=== PATIENT | female | born 1980 | race Caucasian/White ===

== ENCOUNTER 2018-03-12 18:50 | Emergency (ER) | payer MEDICAID, SELFPAY ==
[2018-03-12] VITALS (8 sets, daily range): BP systolic 103–131; BP diastolic 59–99; PULSE 89–106; RESP 18–30; TEMP 36.5–36.6; O2SAT 92–98; BMI 36.6
--- NOTE | 2018-03-12 20:06 | EKG12_ITS ---
Test Reason : SOB Blood Pressure : / mmHG Vent. Rate : 085 BPM Atrial Rate : 085 BPM P-R Int : 140 ms QRS Dur : 090 ms QT Int : 384 ms P-R-T Axes : 040 066 043 degrees QTc Int : 456 ms Normal sinus rhythm Normal ECG Confirmed by DAVIDA DREW, LASHAY ([id number]), book or script editor IVETH RUIZ ([id number] on 03/16/2018 1:33:47 PM Referred By: ROBERTO/SOCRATES Confirmed By:LASHAY HIGUERA MD
--- NOTE | 2018-03-12 20:09 | RAD_ITS ---
STUDY: X-RAY CHEST REASON FOR EXAM: Female, 37 years old. Shortness of breath with headache TECHNIQUE: Single AP portable view of the chest. COMPARISON: Prior study of 11/13/2013 FINDINGS: equipment service lead leads are present. The lungs are clear and expanded. There is no demonstrated pleural abnormality. Normal size heart. Normal mediastinum and ramses. Normal visualized pulmonary arteries. Normal visualized aortic arch and descending thoracic aorta. Normal visualized thoracic spine. Normal visualized ribs, clavicles, and shoulders. There is no demonstrated abnormality of the visualized soft tissue structures of the upper abdomen. RAD/Chest 1 View (Portable) IMPRESSION: Normal x-ray examination of the chest. Electronically Signed: Bijan Navarrete MD at 21:50 EST , Service support ,
[2018-03-12] MEDS: DiphenhydrAMINE 50 MG/ML Syringe 25 MG IV (20:33)
[2018-03-12] MEDS: Metoclopramide 10 MG/2 ML Vial 5 MG IV (20:34)
[2018-03-12 20:35] LABS: Absolute Lymphocyte Count 3.29 X10^3/ul (0.83-4.51); Absolute Neutrophil Count 4.8 X10^3/uL (2.0-7.7); Basophil# 0.03 X10^3/uL; Basophil% 0.3 % (0-1); Eosinophil# 0.09 X10^3/uL; Hematocrit 41.9 % (37-47); Hemoglobin 13.9 g/dl (12.0-15.0); Lymphocyte # 3.29 X10^3/ul (4.0); Lymphocyte % 37.2 % (19-41); Mean Corp Hgb Conc 33.2 g/gl (32-36); Mean Corpuscular Hgb 31.7 pg (27.0-32.0); Mean Corpuscular Volume 95.4 fL (81-99); Mean Platelet Vol. 11.2 fl (6.2-12.0); Monocyte# 0.64 X10^3/uL; Monocyte% 7.2 % (0-10); Neutrophil # 4.78 X10^3/uL (2.7-7.7); Neutrophil % 54.2 % (47-70); Platelet Count 217 K/mm3 (150-450); RBC Distribution Width CV 13.1 % (11.6-14.6); RBC Distribution Width SD 45.3 fl (35.1-43.9); Red Blood Count 4.39 M/mm3 (4.2-5.4); White Blood Count 8.8 K/mm3 (4.4-11.0)
[2018-03-12 20:36] LABS: POSITIVE COUNT NO; POSITIVE DIFFERENTIAL NO; POSITIVE MORPHOLOGY NO
[2018-03-12] MEDS: Albuterol 2.5 MG/3 ML VIAL.NEB. INHALATION ×3 (20:36→20:50)
[2018-03-12] MEDS: Ipratropium/Albuterol Sulfate 3 ML AMPUL.NEB INHALATION (20:36)
--- NOTE | 2018-03-12 20:44 | ED.VISSUMM ---
- ER Visit Summary Date of Service: 03/12/18 Chief Complaint: Cough, shortness of breath History of Present Illness: The patient is a 37 F presenting with cough, shortness of breath. This has been ongoing for the past week. She has a nonproductive cough. She has had nausea with no vomiting. She denies fever. Denies chest pain. She started developing a migraine earlier today. This was gradual onset similar to her previous migraines. She has light sensitivity. She denies other complaints. Physical Examination: Vitals are stable. Patient is afebrile. Alert no acute distress. HEENT exam is unremarkable. Neck is supple. No meningismus Lungs are wheezing bilaterally. Heart is regular rate and rhythm. Abdomen is soft nontender nondistended. Extremities are unremarkable. Skin is warm and dry. No focal neurologic deficit. Remainder of exam is unremarkable. Emergency Department Course and Treatment: She was given albuterol, Atrovent aerosols. She was given Reglan and Benadryl IV. CBC, chemistries unremarkable. HCG negative. On reevaluation, her lung sounds are improved, her headache is improved. Chest x-ray shows no acute process. She is given a prescription for prednisone and Tessalon Perles. She is advised to follow-up with her primary care physician. Advised return to ED if worsening complaints. Disposition: Discharge home Impression: Asthma exacerbation, URI, migraine This note was generated with [employer] dictation software. It may contain incorrect words, spelling, and punctuation that were not noted in review of the chart prior to signing ED Disposition - Plan for ED Patient: Instructions: ED Bronchitis Asthmatic Prescriptions: Benzonatate [Tessalon Perle] 200 mg PO TID PRN PRN #20 capsule PRN Reason: Cough Prednisone [Deltasone] 40 mg PO DAILY #10 tablet Referrals: Miles Baker MD [Primary Care Provider] -
[2018-03-12 20:51] LABS: Anion Gap 8 (5-15); BUN 11 mg/dL (7-18); BUN/Creat Ratio 12.4 RATIO (10-20); Calcium,Total 8.7 mg/dL (8.5-10.1); Chloride 104 mmol/L (98-107); Creatinine, Serum 0.88 mg/dL (0.55-1.02); EST Glomerular Filtration Rate 77 mL/min (>60); Est Glom Filt Rate - Afr Amer 93 mL/min (>60); Estimated Creatinine Clearance 79.53 ml/min; Glucose 79 mg/dL (74-106); Potassium 4.2 mmol/L (3.5-5.1); Sodium Level 138 mmol/L (136-145)
[2018-03-12 21:15] LABS: Pregnancy, Serum, hCG Quali. NEGATIVE Negative (0-9 Nonpreg)
--- NOTE | 2018-03-12 21:30 | ED.RN ---
DR. CROWELL TOLD THIS NURSE I COULD CANCEL THE SEPSIS SCREEN.
[2018-03-12] MEDS: Ketorolac 30 MG/ML Syringe IV (21:45)
--- NOTE | 2018-03-12 22:03 | ED.DEP ---
ED Disposition - Plan for ED Patient: Instructions: ED Bronchitis Asthmatic Prescriptions: Benzonatate [Tessalon Perle] 200 mg PO TID PRN PRN #20 capsule PRN Reason: Cough Prednisone [Deltasone] 40 mg PO DAILY #10 tablet Referrals: Miles Baker MD [Primary Care Provider] -
[2018-03-12] MEDS: predniSONE 20 MG Tablet 60 MG PO (22:14)
== END 2018-03-12 22:16 | disposition home or self-care (01) ==
PROVIDERS: Emergency Provider Emergency Medicine; Family Provider Family Medicine; PCP Family Medicine
DX: J45.901 Unspecified asthma with (acute) exacerbation (principal); J06.9 Acute upper respiratory infection, unspecified; G43.909 Migraine, unspecified, not intractable, without status migrainosus; Z72.0 Tobacco use
CPT/HCPCS: 71045; 80048; 84703; 85025; 93005; 94640; 96374; 96375; 99285; J7030; A4216

== ENCOUNTER 2018-03-20 19:14 | Emergency (ER) | payer MEDICAID, SELFPAY ==
[2018-03-12 18:50] VITALS: BMI 36.6
[2018-03-20 19:14] VITALS: BP 145/81; PULSE 107; RESP 18; TEMP 36.9; O2SAT 97; BMI 36.6
--- NOTE | 2018-03-20 20:10 | ED.VISSUMM ---
- ER Visit Summary Date of Service: 03/20/18 Chief Complaint: Neck pain History of Present Illness: The patient is a 37 F with left-sided neck pain for 2 days. She thinks this came on after coughing. Patient has occasional sharp pain. Reports decreased sleep. Physical Examination: Afebrile and vital signs unremarkable. Left paraspinal cervical tenderness to palpation near the occiput. Mastoid nontender. Ears unremarkable. Parotid unremarkable. Lymph nodes unremarkable. Skin appears normal. Cranial nerves grossly intact. No other pertinent findings. Test Results: None indicated Emergency Department Course and Treatment: I believe this is myofascial pain. Patient was treated with Motrin and Flexeril. She received a dose of Ultram here. Will prescribe a course of the same. Follow-up with primary care for recheck. Treatment Plan: As above Disposition: Discharge Impression: 1. Cervical strain This note was generated with [employer] dictation software. It may contain incorrect words, spelling, and punctuation that were not noted in review of the chart prior to signing ED Disposition - Plan for ED Patient: Referrals: Miles Baker MD [Primary Care Provider] -
--- NOTE | 2018-03-20 20:11 | ED.DEP ---
ED Disposition - Plan for ED Patient: Instructions: Neck Problems: Relieving Your Symptoms Prescriptions: Oxycodone HCl/Acetaminophen [Percocet 5/325] 1 tab PO Q6H PRN PRN 3 Days #12 tab PRN Reason: Pain Ibuprofen [Motrin] 800 mg PO TID PRN PRN #20 tab PRN Reason: Pain Cyclobenzaprine [Flexeril] 10 mg PO TID PRN #20 tab PRN Reason: Muscle Spasm Referrals: Miles Baker MD [Primary Care Provider] -
[2018-03-20] MEDS: Ibuprofen 600 MG Tablet PO (20:15)
[2018-03-20] MEDS: traMADol 50 MG Tablet PO (20:15)
== END 2018-03-20 20:18 | disposition home or self-care (01) ==
PROVIDERS: Emergency Provider Emergency Medicine; Family Provider Family Medicine; PCP Family Medicine
DX: S16.1XXA Strain of muscle, fascia and tendon at neck level, initial encounter (principal); X58.XXXA Exposure to other specified factors, initial encounter; Y93.9 Activity, unspecified; Y92.89 Other specified places as the place of occurrence of the external cause; Y99.9 Unspecified external cause status; Z72.0 Tobacco use
CPT/HCPCS: 99283

== ENCOUNTER 2018-05-11 17:39 | Emergency (ER) | payer MEDICAID, SELFPAY ==
[2018-05-11 17:41] VITALS: BP 148/103; PULSE 120; RESP 20; TEMP 36.9; O2SAT 95; BMI 36.6
--- NOTE | 2018-05-11 18:01 | EKG12_ITS ---
Test Reason : GEN ILLNESS Blood Pressure : / mmHG Vent. Rate : 108 BPM Atrial Rate : 108 BPM P-R Int : 128 ms QRS Dur : 090 ms QT Int : 340 ms P-R-T Axes : 024 056 027 degrees QTc Int : 455 ms Sinus tachycardia Otherwise normal ECG Confirmed by DAVIDA DREW, LASHAY ([id number]), science editor CATHI HINOJOSA ([id number]) on 05/13/2018 10:58:14 AM Referred By: JESS Confirmed By:LASHAY HIGUERA MD
[2018-05-11] MEDS: Ipratropium/Albuterol Sulfate 3 ML AMPUL.NEB INHALATION (18:09)
[2018-05-11 18:10] VITALS: PULSE 111; RESP 26
[2018-05-11 18:12] VITALS: BP 148/105; PULSE 120; RESP 18; TEMP 36.9; O2SAT 90
--- NOTE | 2018-05-11 18:20 | RAD_ITS ---
STUDY: X-RAY CHEST REASON FOR EXAM: Female, 37 years old. Cough, rib pain. TECHNIQUE: PA and lateral views of the chest. COMPARISON: Portable AP upright chest x-ray March 12, 2018. FINDINGS: The lungs are clear and expanded. There is no demonstrated pleural abnormality. Normal size heart. Normal mediastinum and ramses. Normal visualized pulmonary arteries. Normal visualized aortic arch and descending thoracic aorta. Normal visualized thoracic spine. Normal visualized ribs, clavicles, and shoulders. There is no demonstrated abnormality of the visualized soft tissue structures of the upper abdomen. RAD/Chest PA and Lateral IMPRESSION: Normal x-ray examination of the chest. Electronically Signed: Ilan Smith MD at 18:37 EDT , Service support ,
[2018-05-11] MEDS: predniSONE 20 MG Tablet 60 MG PO (18:29)
[2018-05-11] MEDS: Acetaminophen 500 MG Tablet 1000 MG PO (18:45)
[2018-05-11 19:03] VITALS: BP 150/86; PULSE 103; RESP 20; TEMP 37.4; O2SAT 96
[2018-05-11] MEDS: Ketorolac 60 MG/2 ML Vial IM (19:32)
[2018-05-11 19:33] LABS: Bacteria 0 SEEN /hpf (None Seen); Color, Urine Yellow (Yellow); Glucose, Dipstick Normal (Normal); Ketone-Dipstick Negative (Negative); Leukocyte Esterase-Dipstick 25 /ul (Negative); Mucous, Urine 0 SEEN /hpf (<or=2+); Nitrite-Dipstick Negative (Negative); Occult Blood-Urine Negative /ul (Negative); Protein-Dipstick Negative (Negative); Red Blood Cells-Urine 0 SEEN /hpf (0-5); Urine Bilirubin Dipstick Negative (Negative); Urine Clarity Clear (Clear); Urine Urobilinogen Normal (Normal); Urine pH 6.5 (5.0 - 8.0); White Blood Cells 0 SEEN /hpf (0-5)
[2018-05-11 19:39] LABS: Squamous Epithelial Cells - UA 0-5 SEEN /hpf (5-10)
[2018-05-11 19:52] VITALS: BP 140/79; PULSE 99; RESP 20; TEMP 37.4; O2SAT 93
[2018-05-11 20:02] VITALS: BP 140/79; PULSE 99; RESP 15; TEMP 37.4; O2SAT 93
--- NOTE | 2018-05-11 20:34 | ED.DCSUM_ITS ---
- ER Visit Summary Date of Service: 05/11/18 Chief Complaint: Cough, chest pain History of Present Illness: The patient is a 37 F 3-day history of productive cough. Pain in her chest and ribs and kidney area. No urinary symptoms. No recent travel, surgeries. No history of PE or DVT. History of similar bronchitis. Tobacco history. Physical Examination: General: Alert and oriented ?3, no acute distress HEENT: Normocephalic, atraumatic. Moist mucosa membranes Neck: supple, nontender. Cardiovascular: Regular rate 102 and rhythm, no murmurs Respiratory: Bilateral wheezing, no distress Abdomen: Soft, nontender, nondistended Back: Tender palpation bilateral flank, no rash Extremities: Nontender, no edema, pulses intact ?4 Neuro: no focal neurological deficits. Test Results: EKG: Sinus rate [address] or T wave changes. UA leukocytes with no blood. Two-view chest x-ray negative. Emergency Department Course and Treatment: Patient wheezing asthma history. Treated with steroids DuoNeb treatment. Wheezing improved. Return evaluation had complains of rib pain given Toradol with improvement. Chest x-ray negative. Discussed tobacco cessation. EKG due to chest pain symptoms sinus tachycardia. She is wheezing with cough, likely upper respiratory infection, low clinical suspicion for PE. Discussed bronchitis symptoms. Will empirically start on Zithromax with productive sputum. She will continue ibuprofen at home. She will be given 4-day course of steroids and her antibiotics to finish. Signs and symptoms discussed return. Otherwise follow-up with her PCP. All questions were answered. Treatment Plan: [] Disposition: Discharge Impression: 1. Asthma exacerbation 2. Acute bronchitis This note was generated with [employer] software. It may contain incorrect words, spelling, and punctuation that were not noted in review of the chart prior to signing ED Disposition - Plan for ED Patient: Disposition: Home or Assisted Living Diagnosis: Asthma exacerbation, Acute bronchitis Instructions: Understanding Asthma Triggers, Acute Bronchitis Prescriptions: Azithromycin [Zithromax] 250 mg PO DAILY #4 tablet predniSONE tablet 60 mg PO DAILY #12 tablet Referrals: Miles Baker MD [Primary Care Provider] - 3-5 Days if not improving
[2018-05-11] MEDS: Azithromycin 250 MG Tablet 500 MG PO (20:36)
== END 2018-05-11 20:37 | disposition home or self-care (01) ==
PROVIDERS: Emergency Provider Emergency Medicine; Family Provider Family Medicine; PCP Family Medicine
DX: J45.901 Unspecified asthma with (acute) exacerbation (principal); J20.9 Acute bronchitis, unspecified; E03.9 Hypothyroidism, unspecified; Z72.0 Tobacco use
CPT/HCPCS: 71046; 81001; 93005; 94640; 96372; 99283

== ENCOUNTER 2018-06-24 13:18 | Emergency (ER) | payer MEDICAID, SELFPAY ==
[2018-06-24 13:18] VITALS: BP 130/94; PULSE 95; RESP 18; TEMP 36.3; O2SAT 97; BMI 35.9
--- NOTE | 2018-06-24 13:28 | ED.VIS.HA ---
History of Present Illness Chief Complaint: Headache Informant: Patient Onset: Today Context: Sudden Timing: Continuous Quality: Similar Prior Headaches, Dull, Throbbing Current Severity: Severe Maximum Severity: Severe Worsened by: Sound and light Relieved by: nothing Associated Symptoms: Nausea, Preceding Aura, Visual Changes, Blurred Vision, Photophobia, - - Phonophobia. Negative for: Fever, Vomiting, Sore Throat, Sinus Pressure, Numbness, Tingling, Visual Loss Injury: - - There is no history of trauma Narrative: Patient a 37-year-old woman who presents with her typical headache. Started abruptly while lying in bed. She complains of photophobia, sonophobia, nausea and scintillating scotoma with blurred vision right eye only. She denies trouble speech or swallowing. She denies paresthesia, anesthesia motor weakness upper lower 70. She denies problems with balance or walking. She denies fever, chills or night sweats. She is not on prophylactic treatment. Prior similar symptoms: Yes Recent Illness/Hospitalization: Yes - Past Medical History (1) Migraine Status: Acute (2) Depression Status: Chronic (3) Hypothyroidism Status: Chronic Past Medical History - Allergies and Home Meds Allergies/Adverse Reactions: Allergies diclofenac sodium [From Voltaren] Allergy (Verified 06/24/18 13:19) Unknown hydrocodone bitartrate [From Vicodin] Adverse Reaction (Verified 06/24/18 13:19) Vomiting Primary Care Physician: Miles Baker MD [Primary Care Provider] - Prior records reviewed: Yes Surgical History: ,  Lives: Spouse/ Significant Other Smoking Status: Current every day smoker Alcohol: Rare Drugs: None Review of Systems General: Denies: Chills, Fever, Sweats Eyes: Reports: Visual changes - right, Blurred vision - right, - - Patient also reports scintillating scotoma right eye only. Denies: Diplopia ENT: Denies: Bilateral ear pain, Rhinorrhea, Sore throat Cardiovascular: Denies: Chest pain, Palpitations Respiratory: Denies: Dyspnea, Cough, Dyspnea on exertion Gastrointestinal: Reports: Nausea. Denies: Abdominal pain, Vomiting, Diarrhea, Melena, Hematochezia Genitourinary: Denies: Dysuria, Hematuria, Frequency Musculoskeletal: Denies: Myalgias, Arthralgias, Neck pain, Back pain, Extremity Pain Skin: Denies: Rash, Wounds Neurological: Reports: Headache. Denies: Weakness, Numbness Hematologic: Denies: Easy bruising, Easy bleeding Allergy: Denies: Uticaria, Swelling of the mouth Physical Exam Vital Signs/Narrative: Vital Signs Temp Pulse Resp BP Pulse Ox 06/24/18 13:18 97.4 F L 95 18 130/94 H 97 Inital Vital Signs reviewed: Yes General: Well nourished, Well developed, Obese Head: NC, AT. Negative for: Trauma, Tenderness, Temporary Artery Tenderness, Vesicular Rash, Sinus Tenderness Eyes: Perrl, EOMI, - - Scopic exam limited secondary to photophobia. There is no obvious papilledema. Cup-to-disc ratio appears normal.. Negative for: Pale conjunctiva, Scleral icterus ENT: Moist mucous membranes, No rhinorrhea, TM's clear. Negative for: Nasal congestion, Sinus tenderness Neck: Supple, No Lymphadenopathy, No JVD, Nontender, No Meningismus. Negative for: Paraspinal Tenderness Cardiovascular: Regular rate, Regular rhythm, No murmurs, Normal S1, Normal S2 Respiratory: No distress, CTA bilaterally, Chest nontender Abdomen: Soft, Nontender, Nondistended, Normal bowel sounds, No masses Rectal: Deferred Back: Nontender, Normal Inspection Extremities: Nontender, No edema Skin: Normal color, No rash. Negative for: Cyanosis, Jaundice Neuro: Alert, Oriented x3, Cranial nerves II-XII grossly intact, Normal Strength, Normal Sensation, Normal DTR - No clonus or Babinski sign, Normal Gait, - - Finger-nose to finger normal. Psychological: Depressed Diagnostic/Tx/Re-eval - Medical Decision Making Patient's history is suggestive of migraine headache. Since she has a normal neurologic exam with no meningeal findings suspect exacerbation of her asthma. Doubt sinusitis, doubt viral infection and doubt subarachnoid hemorrhage. Will treat with IV Toradol, Reglan and Benadryl and reassess in 15 to 30 minutes after administration of medication. Patient was reassessed at 1445. She is resting comfortably. She states her headache has essentially resolved. We will discharged home. She has no questions. ED Disposition - Plan for ED Patient: Disposition: Home or Assisted Living Diagnosis: Ocular migraine with status migrainosus, not intractable Instructions: ED Headache Migraine Referrals: Miles Baker MD [Primary Care Provider] - As Needed
[2018-06-24 13:33] VITALS: BP 139/104; PULSE 89; RESP 15; O2SAT 98
[2018-06-24] MEDS: 0.9% Normal Saline 1,000 ML 999 ML IV (13:46)
[2018-06-24] MEDS: Metoclopramide 10 MG/2 ML Vial IV (13:47)
[2018-06-24] MEDS: Ketorolac 30 MG/ML Syringe 15 MG IV (13:47)
[2018-06-24] MEDS: DiphenhydrAMINE 50 MG/ML Syringe 25 MG IV (13:47)
[2018-06-24 15:03] VITALS: BP 118/72; PULSE 74; RESP 16; O2SAT 98
== END 2018-06-24 15:04 | disposition home or self-care (01) ==
PROVIDERS: Emergency Provider Emergency Medicine; Family Provider Family Medicine; PCP Family Medicine
DX: G43.109 Migraine with aura, not intractable, without status migrainosus (principal); F32.9 Major depressive disorder, single episode, unspecified; E03.9 Hypothyroidism, unspecified; F17.200 Nicotine dependence, unspecified, uncomplicated; Z88.5 Allergy status to narcotic agent
CPT/HCPCS: 96361; 96374; 96375; 99283; J7030; A4216

== ENCOUNTER 2019-11-27 16:41 | Emergency (ER) | payer MEDICAID, SELFPAY ==
[2019-11-27 16:42] VITALS: BP 142/101; PULSE 77; RESP 18; TEMP 36.4; BMI 35.8
[2019-11-27 16:44] VITALS: BP 142/101; PULSE 77; RESP 18; TEMP 36.4
--- NOTE | 2019-11-27 16:59 | US_ITS ---
STUDY: ABDOMINAL ULTRASOUND - RIGHT UPPER QUADRANT REASON FOR VISIT: Female, 38 years old RUQ PAIN NVD 3 DAYS TECHNIQUE: Ultrasound evaluation of the right upper quadrant was performed with real-time and static allen-scale imaging. TECHNICAL QUALITY: Limited. Examination limited due to a combination of factors including obesity and bowel gas. COMPARISON: None. FINDINGS: Liver: The liver measures 19.4 cm. There is increased echogenicity consistent with fatty infiltration. The bile ducts are within normal limits. There is hepatic color flow. The direction of portal flow is hepatopetal. There is no demonstrated mass lesion. Gallbladder: Normal distended gallbladder. The gallbladder wall measures 3 mm. There is a negative sonographic Conde''s sign. There is no pericholecystic fluid. There is a solitary echogenic gallstone within the gallbladder. Common Bile Duct (C.B.D.): The common bile duct measures 5 mm. Pancreas: Normal size of the head, body of the pancreas. Tail of the pancreas is suboptimally seen. There is normal echogenicity of the pancreas. There is no demonstrated pancreatic mass or cyst. Right Kidney: Normal size of the right kidney. The right kidney measures 12.5 cm. Normal renal cortex. The right cortex measures 1.2 cm. There is no demonstrated renal mass or cyst. There is no right hydronephrosis. US/Gallbladder IMPRESSION: Cholelithiasis. Fatty liver with hepatomegaly. Electronically Signed: Jw Campbell MD at 18:31 EDT , Service support ,
--- NOTE | 2019-11-27 17:00 | ED.VIS.GEN ---
History of Present Illness Chief Complaint: Abd Pain Informant: Patient Narrative: 38-year-old female with no significant past medical history presents with abdominal pain. States has been intermittent over the past 3 days. States it is aching and in her right upper quadrant. Has had nausea, vomiting, diarrhea. Denies any hematochezia or melena. Denies any vaginal bleeding or discharge. Denies any urinary symptoms. Past Medical History - Allergies and Home Meds Allergies/Adverse Reactions: Allergies diclofenac sodium [From Voltaren] Allergy (Verified 06/24/18 13:19) Unknown hydrocodone bitartrate [From Vicodin] Adverse Reaction (Verified 06/24/18 13:19) Vomiting Primary Care Physician: Miles Baker MD [Primary Care Provider] - Past Medical History: None Surgical History: - - tubal ligation; partial thyroidectomy Lives: Alone Smoking Status: Current every day smoker Alcohol: None Drugs: None Review of Systems General: Denies: Chills, Fever, Sweats Eyes: Denies: Visual changes - bilaterally, Diplopia ENT: Denies: Rhinorrhea, Sore throat Cardiovascular: Denies: Chest pain, Palpitations Respiratory: Denies: Dyspnea, Cough, Dyspnea on exertion Gastrointestinal: Reports: Abdominal pain, Nausea, Vomiting, Diarrhea. Denies: Melena, Hematochezia Genitourinary: Denies: Dysuria, Hematuria, Frequency Musculoskeletal: Denies: Back pain, Extremity Pain Skin: Denies: Rash, Wounds Neurological: Denies: Headache, Weakness, Numbness Physical Exam Vital Signs/Narrative: Vital Signs Temp Pulse Resp BP 11/27/19 16:44 97.6 F L 77 18 142/101 H 11/27/19 16:42 97.6 F L 77 18 142/101 H Inital Vital Signs reviewed: Yes General: Well nourished, Well developed, No Acute Distress Head: Normocephalic, Atraumatic Eyes: Perrl, EOMI ENT: Moist mucous membranes, No rhinorrhea Neck: Supple, Nontender Cardiovascular: Regular rate, Regular rhythm, No murmurs Respiratory: No distress, CTA bilaterally, Chest nontender Abdomen: Soft, Nondistended, Normal bowel sounds, Conde's sign Back: Nontender, Normal Inspection Extremities: Nontender, No edema Skin: Normal color, No rash Neurological: Alert, Oriented x3, Cranial nerves II-XII grossly intact, Normal Strength, Normal Sensation Psychological: Normal affect, Normal Mood Diagnostic/Tx/Re-eval Clinical Impression(s) from Imaging Studies Gallbladder Ultrasound 11/27/19 16:59 IMPRESSION: Cholelithiasis. Fatty liver with hepatomegaly. Electronically Signed: Jw Campbell MD at 18:31 EDT , Service support , Laboratory Data 11/27/19 11/27/19 11/27/19 17:00 17:00 18:00 WBC 9.7 RBC 4.26 Hgb 13.7 Hct 40.3 MCV 94.6 MCH 32.2 H MCHC 34.0 RDW Std Deviation 41.2 RDW Coeff of Brennan 11.9 Plt Count 283 MPV 11.2 Immature Gran % (Auto) 0.300 Neut % (Auto) 60.8 Lymph % (Auto) 31.4 Crawford % (Auto) 6.1 Eos % (Auto) 1.1 Baso % (Auto) 0.3 Absolute Neuts (auto) 5.9 Absolute Lymphs (auto) 3.04 Nucleated RBC % 0 Sodium 140 Potassium 3.7 Chloride 104 Carbon Dioxide 29.0 Anion Gap 7 BUN 11 Creatinine 0.89 Estim Creat Clear Calc 81.02 Est GFR (MDRD) Af Amer 91 Est GFR (MDRD) Non-Af 75 BUN/Creatinine Ratio 12.3 Glucose 97 Calcium 9.5 Total Bilirubin 0.80 AST 13 L ALT 15 Alkaline Phosphatase 66 Total Protein 7.3 Albumin 3.7 Globulin 3.6 Albumin/Globulin Ratio 1.0 Lipase 70 L Urine Color Yellow Urine Clarity Clear Urine pH 7.0 Ur Specific Kimball 1.010 Urine Protein Negative Urine Glucose (UA) Normal Urine Ketones Negative Urine Occult Blood Negative Urine Nitrite Negative Urine Bilirubin Negative Urine Urobilinogen Normal Ur Leukocyte Esterase Negative Urine RBC 0 SEEN Urine WBC 0 SEEN Ur Squamous Epith Cells 0-5 SEEN Amorphous Sediment 1+ PHOS Urine Bacteria 0 SEEN Urine Mucus 0 SEEN Urine Test Negative - Medical Decision Making Patient in moderate distress secondary to abdominal pain upon arrival. Lab work within normal limits. Sound shows evidence of cholelithiasis. No gallbladder wall thickening, pericholecystic fluid, CBD dilatation. Patient will be given surgical outpatient follow-up. Asked to avoid fatty foods. Asked to return for new or worsening symptoms. Impression: 1. Biliary colic 2. Cholelithiasis ED Disposition - Plan for ED Patient: Disposition: Home or Assisted Living Instructions: ED Gallstones with Biliary Colic Referrals: Miles Baker MD [Primary Care Provider] - 2 Days Farhan Aguila MD [STAFF PHYSICIAN] - 5-7 Days
[2019-11-27] MEDS: 0.9% Normal Saline 1,000 ML 1000 ML IV (17:11)
[2019-11-27] MEDS: Ondansetron 4 MG/2 ML Vial IV (17:12)
[2019-11-27] MEDS: Morphine 4 MG/ML Syringe IV (17:12)
[2019-11-27 17:30] LABS: Absolute Lymphocyte Count 3.04 X10^3/uL (0.83-4.51); Absolute Neutrophil Count 5.9 X10^3/uL (2.0-7.7); Basophil# 0.03 X10^3/uL; Basophil% 0.3 % (0-1); Eosinophil# 0.11 X10^3/uL; Eosinophils% 1.1 % (0-5); Hematocrit 40.3 % (37-47); Hemoglobin 13.7 g/dL (12.0-15.0); Lymphocyte # 3.04 X10^3/ul (4.0); Lymphocyte % 31.4 % (19-41); Mean Corpuscular Hgb 32.2 pg (27.0-32.0); Mean Corpuscular Volume 94.6 fL (81-99); Mean Platelet Vol. 11.2 fl (6.2-12.0); Monocyte# 0.59 X10^3/uL; Monocyte% 6.1 % (0-10); NRBC Flagged by Analyzer 0 % (0-5); Neutrophil # 5.87 X10^3/uL (2.7-7.7); Neutrophil % 60.8 % (47-70); Platelet Count 283 K/mm3 (150-450); RBC Distribution Width CV 11.9 % (11.6-14.6); RBC Distribution Width SD 41.2 fl (35.1-43.9); Red Blood Count 4.26 M/mm3 (4.2-5.4); White Blood Count 9.7 K/mm3 (4.4-11.0)
[2019-11-27 17:39] LABS: AST(SGOT) 13 U/L (15-37); Alanine Aminotransfer ALT/SGPT 15 U/L (13-56); Albumin, Serum 3.7 g/dL (3.2-5.0); Alkaline Phosphatase 66 U/L (45-117); Anion Gap 7 (5-15); BUN 11 mg/dL (7-18); BUN/Creat Ratio 12.3 RATIO (10-20); Calcium,Total 9.5 mg/dL (8.5-10.1); Chloride 104 mmol/L (98-107); Creatinine, Serum 0.89 mg/dL (0.55-1.02); EST Glomerular Filtration Rate 75 mL/min (>60); Est Glom Filt Rate - Afr Amer 91 mL/min (>60); Estimated Creatinine Clearance 81.02 ml/min; Globulin 3.6 g/dL (2.2-4.2); Glucose 97 mg/dL (74-106); Lipase 70 U/L (73-393); Potassium 3.7 mmol/L (3.5-5.1); Protein, Total 7.3 g/dL (6.4-8.2); Sodium Level 140 mmol/L (136-145)
[2019-11-27 18:16] LABS: Bacteria 0 SEEN /hpf (None Seen); Mucous, Urine 0 SEEN /hpf (<or=2+); Red Blood Cells-Urine 0 SEEN /hpf (0-5); White Blood Cells 0 SEEN /hpf (0-5)
[2019-11-27 18:19] LABS: Color, Urine Yellow (Yellow); Glucose, Dipstick Normal (Normal); Ketone-Dipstick Negative (Negative); Leukocyte Esterase-Dipstick Negative /ul (Negative); Nitrite-Dipstick Negative (Negative); Occult Blood-Urine Negative /ul (Negative); Protein-Dipstick Negative (Negative); Urine Bilirubin Dipstick Negative (Negative); Urine Clarity Clear (Clear); Urine Urobilinogen Normal (Normal)
[2019-11-27 18:22] LABS: Internal QC Validated? YES +Cl - CLEAR BKGD; Pregnancy, Urine Negative Negative
[2019-11-27 18:27] LABS: Amorphous Sediment 1+ PHOS; Squamous Epithelial Cells - UA 0-5 SEEN /hpf (5-10)
[2019-11-27] MEDS: HYDROmorphone 0.5 MG/0.5 ML SYRINGE IV (18:30)
[2019-11-27 19:23] VITALS: BP 121/83; PULSE 77; RESP 16; O2SAT 96
== END 2019-11-27 19:24 | disposition home or self-care (01) ==
PROVIDERS: Emergency Provider Emergency Medicine; PCP Family Medicine
DX: K80.70 Calculus of gallbladder and bile duct without cholecystitis without obstruction (principal); F17.200 Nicotine dependence, unspecified, uncomplicated
CPT/HCPCS: 76705; 80053; 81001; 81025; 83690; 85025; 96361; 96374; 96375; 99283; J7030; A4216; J2405

== ENCOUNTER → 2019-11-29 13:35 | Outpatient (CLI) | payer MEDICAID, SELFPAY ==
[2019-11-29 13:20] VITALS: BMI 35.5
[2019-11-29 14:16] LABS: Absolute Lymphocyte Count 3.27 X10^3/uL (0.83-4.51); Absolute Neutrophil Count 6.2 X10^3/uL (2.0-7.7); Basophil# 0.03 X10^3/uL; Basophil% 0.3 % (0-1); Eosinophil# 0.12 X10^3/uL; Eosinophils% 1.2 % (0-5); Hematocrit 39.8 % (37-47); Hemoglobin 13.4 g/dL (12.0-15.0); Lymphocyte # 3.27 X10^3/ul (4.0); Lymphocyte % 31.8 % (19-41); Mean Corp Hgb Conc 33.7 g/dL (32-36); Mean Corpuscular Hgb 32.3 pg (27.0-32.0); Mean Corpuscular Volume 95.9 fL (81-99); Mean Platelet Vol. 11.3 fl (6.2-12.0); Monocyte# 0.62 X10^3/uL; NRBC Flagged by Analyzer 0 % (0-5); Neutrophil # 6.22 X10^3/uL (2.7-7.7); Neutrophil % 60.4 % (47-70); Platelet Count 276 K/mm3 (150-450); RBC Distribution Width SD 41.9 fl (35.1-43.9); Red Blood Count 4.15 M/mm3 (4.2-5.4); White Blood Count 10.3 K/mm3 (4.4-11.0)
[2019-11-29 14:23] LABS: ALB/GLOB Ratio 1.1 RATIO (0.9-2.4); AST(SGOT) 14 U/L (15-37); Alanine Aminotransfer ALT/SGPT 12 U/L (13-56); Albumin, Serum 3.9 g/dL (3.2-5.0); Alkaline Phosphatase 66 U/L (45-117); Anion Gap 5 (5-15); BUN 6 mg/dL (7-18); BUN/Creat Ratio 7.2 RATIO (10-20); Calcium,Total 8.7 mg/dL (8.5-10.1); Chloride 108 mmol/L (98-107); Creatinine, Serum 0.84 mg/dL (0.55-1.02); EST Glomerular Filtration Rate 81 mL/min (>60); Est Glom Filt Rate - Afr Amer 98 mL/min (>60); Globulin 3.5 g/dL (2.2-4.2); Glucose 92 mg/dL (74-106); Lipase 76 U/L (73-393); Protein, Total 7.4 g/dL (6.4-8.2); Sodium Level 138 mmol/L (136-145)
== END ==
PROVIDERS: PCP Family Medicine; Referring Provider Surgery; Visit Provider Surgery
DX: R10.9 Unspecified abdominal pain (principal)
CPT/HCPCS: 36415; 80053; 83690; 85025

== ENCOUNTER 2019-11-30 10:04 | Day surgery (SDC) | payer MEDICAID, SELFPAY ==
[2019-11-29 13:20] VITALS: BMI 35.5
[2019-11-30] VITALS (9 sets, daily range): BP systolic 112–145; BP diastolic 78–106; PULSE 63–96; RESP 16; TEMP 36.1–36.4; O2SAT 92–98; BMI 35.6
--- NOTE | 2019-11-30 10:10 | EKG12_ITS ---
Test Reason : PRE OP Blood Pressure : / mmHG Vent. Rate : 074 BPM Atrial Rate : 074 BPM P-R Int : 122 ms QRS Dur : 082 ms QT Int : 404 ms P-R-T Axes : 030 060 040 degrees QTc Int : 448 ms Normal sinus rhythm Normal ECG Confirmed by ARISTIDES DREW, BEBE ([id number]), editor producer CATHI HINOJOSA ([id number]) on 12/04/2019 1:23:20 PM Referred By: POLINA Confirmed By:BEBE IRVING MD
[2019-11-30 10:35] LABS: Internal QC Validated? YES +Cl - CLEAR BKGD; Pregnancy, Urine Negative Negative
--- NOTE | 2019-11-30 11:00 | HP_ITS ---
Intake Vital Signs 11/29/19 Height 5 ft 6 in 11/29/19 Weight: 220 lb 11/29/19 BMI 35.5 11/29/19 BP 146/99 H 11/29/19 Blood Pressure Location Rt brachial 11/29/19 Position Sitting 11/29/19 Respiration 18 11/29/19 Pulse 65 11/29/19 Pulse Source Monitor 11/29/19 Temp 97.4 F L 11/29/19 Temp Source Temporal 11/29/19 Pulse Oximetry (%) 99 11/29/19 Oxygen Delivery Method room air Intake Visit Reasons: Gall Stones Business Education Instructor Required: No Is patient in pain?: Yes (RUQ ) Pain scale (1-10): 9 Allergies diclofenac sodium [From Voltaren] Allergy (Verified 11/29/19 13:22) Unknown hydrocodone bitartrate [From Vicodin] Adverse Reaction (Verified 11/29/19 13:22) Vomiting Medications oxycodone-acetaminophen 5 mg-325 mg tablet 1 tab PO Q4H PRN #30 tab 11/29/19 [Rx Confirmed 11/29/19] PFSH Medical History Hemorrhoids (Acute) Acid reflux (Acute) Diarrhea (Acute) Vomiting (Acute) Nausea (Acute) RUQ abdominal pain (Acute) Epigastric pain (Acute) Asthma (Acute) Thyroid disease (Acute) Fatigue (Acute) Migraine (Acute) Tobacco dependence syndrome (Chronic) Hypothyroidism (Chronic) Depression (Chronic) Constipation (Acute) Surgical History Hx of tubal ligation (Acute) Hx of partial thyroidectomy (Acute) Family History Mother Asthma Arthritis Heart disease Hypertension Social History (Updated 11/29/19 @ 13:[address] Farhan Aguila MD) Smoking Status: Current every day smoker alcohol intake: current alcohol intake frequency: a few times a month substance use type: does not use caffeine: No what type of physical activity do you participate in: none HPI HPI Surgical H&P: Yes HPI: CORAL SÁNCHEZ, is a 39 F who presents to the office today for Evaluation of symptomatic cholelithiasis. Patient was seen in [place] emergency department on 11/27/2019. She has had about a 6-day history of abdominal discomfort initially was epigastric now its right upper quadrant radiating into her back she has had nausea vomiting and some diarrhea at times but not much since she has been eating. Has had some dry heaves denies any melena or hematochezia. She has had no black tarry stools. She is not having any vaginal bleeding or discharge. She denies any urinary symptoms. Her work-up in the emergency department showed that she had a normal white count normal liver function tests lipase was normal but her gallbladder ultrasound showed A normal gallbladder wall negative sonographic Conde sign no pericholecystic fluid a solitary gallstone within the gallbladder. Common bile duct measured 5 mm. ROS General General: Yes fatigue; no weight change, appetite, colon cancer, breast cancer or weakness HEENT HEENT: No difficulty swallowing, eye injury, eye surgery, swollen glands or hoarseness Endo Endocrine: Yes thyroid disease; no diabetes mellitus, thyroid cancer, Hair loss, heat intolerance or cold intolerance Skin Skin: No rash or changing moles Musc Musculoskeletal: No back problems, arthritis, rheumatoid arthritis, gout or joint pain Cardio Cardiovascular: No murmur, pacemaker, heart disease, atrial fibrillation, high blood pressure, heart attack, heart stent, palpitations, shortness of breat with exertion or chest pain Psych Psychiatric: No depression, anxiety or hearing voices Resp Respiratory: No shortness of breath, No sleep apnea, Yes cough, No COPD, Yes asthma, No emphysema, No wheezing Gastro Gastrointestinal: Yes abdominal pain, Yes nausea or vomiting, Yes diarrhea, No constipation, No blood in stool, Yes acid reflux, Yes hemorrhoids, No ulcers, Yes gallbladder problem, No black,tarry stools Brett Hematologic: No blood thinners, No blood disorders, No bleeding, No anemia, No blood clots Neuro Neurologic: No system reviewed and no additional complaints, except as docu, No as per HPI, No abnormal walking, No abnormal hearing, No abnormal movements, No abnormal speech, No behavioral changes, No burning sensations, No confusion, No seizure-like activity, No unsteadiness, No dizziness, No localized weakness, No frequent falls, No headache(s), No lack of coordination, No loss of vision, No memory loss, No numbness, No other visual disturbances, No radiating pain, No restless legs, No sensory deficit, No fainting, No tingling, No tremor(s), No weakness, No other Exam Const General: no acute distress, well developed, well hydrated Orientation: oriented to person, oriented to place, oriented to time [facility] Head: normocephalic, atraumatic Ears: external ears normal Mouth: moist mucous membranes Eyes Sclera: sclerae normal Pupils: normal by confrontation Neck Neck: no lymphadenopathy noted Neck mass: No Thyroid: thyroid normal, symmetrical Chest Chest palpation & inspection: normal inspection of the chest Resp Effort & Inspection: normal respiratory effort Auscultation: clear to auscultation bilaterally Percussion: percussion normal Cardio Rate: regular rate Rhythm: regular rhythm Heart Sounds: no murmurs GI Palpation: soft, no hepatosplenomegaly, no masses, tender Auscultation: normal bowel sounds Rectal Exam: other Other: Rectal exam deferred. Extrem General: normal to inspection, no clubbing, cyanosis or edema Assessment & Plan Problems 1. Calculus of gallbladder with acute on chronic cholecystitis without obstruction K80.12 2. Right upper quadrant abdominal pain R10.11 Plan Reviewed the anatomy with the patient and discussed the procedure: laparoscopic cholecystectomy with possible cholangiograms, possible open. Review risks including but not limited to bleeding, infection, hernia, bile leak, retained gallstones requiring another procedure ERCP- Endoscopic Retrograde Cholangiopancreatography, injury to another organ (bile ducts, common bile duct, small bowel, etc.) and conversion to an open procedure. All questions were answered. Orders Orders: Comprehensive Metabolic Profil Today R10.9 Lipase Today R10.9 CBC W/Diff, Automated Today R10.9 Medications New: oxycodone-acetaminophen 5-325 mg (Percocet) 1 tab PO Q4H PRN 30 tabs 0RF pain Coding Level of Care Code Off vis,new,level 4 Diagnoses Calculus of gallbladder with acute on chronic cholecystitis without obstruction K80.12 ??Cholelithiasis location: gallbladder ??Cholecystitis acuity: acute and chronic Right upper quadrant abdominal pain R10.11 COVID (Procedure Consent) Procedure Criteria Procedure Criteria: Yes Elective The surgeon/proceduralist and patient have discussed in detail the risk of exposure to and/or potential harm posed by the COVID-19 virus with having a surgery/procedure at this time versus the risk of? delaying the surgery/procedure. It is not possible to know either the risk of delaying the surgery or procedure or chance of getting an infection with perfect accuracy, but a joint decision was made between the patient and the surgeon/proceduralist ?to proceed at this time with the scheduled surgery/procedure as indicated on the consent form. I have re-examined the patient. There are no clinical changes since date of exam.
--- NOTE | 2019-11-30 12:00 | GALL_PTH ---
PATIENT: CORAL SÁNCHEZ [place] [facility] [id number] AGE/SX: 39/F ROOM: RE11/30/[address]: Dr. Farhan Aguila MD : [id number] BED: DIS: 11/30/2019 SPEC #: [id number] RECD: 11/30/19 13:40 STATUS: LIZBET RIVKA #: [id number] MARIN: 11/30/19 12:[address]: Farhan Aguila DEPT: SURGICAL PATHOLOGY RECD BY: Fransico Tapia ENTERED: 11/30/19 13:47 SP TYPE: CLARITZA MARMOLEJO DR: Dr. Miles Baker MD Tissues: Gallbladder, NOS Procedures: Surgery Specimen Level III HEADER OPERATION: Laparoscopic cholecystectomy PRE-OP DIAGNOSIS: Calculus of gallbladder with acute on chronic cholecystitis; right upper quadrant abdominal pain TISSUE SUBMITTED: Gallbladder MICROSCOPIC DIAGNOSIS Gallbladder, cholecystectomy: Mild chronic cholecystitis and cholelithiasis. SJ:reji 12/01/19 MICROSCOPIC DESCRIPTION Slides are reviewed. GROSS DESCRIPTION Received is one container labeled with the patient's name and designated gallbladder. The specimen consists of a gallbladder measuring 9.5 cm in length and up to 4 cm in diameter. The external surface is pink-waldrop, smooth and glistening for the most part. Focally it is granular, hemorrhagic and contains cautery artifact. The gallbladder contains green-yellow mucoid bile and one irregular black stone measuring 1 x 0.6 x 0.6 cm. The mucosa is bile-stained and without any mass lesions. The gallbladder wall measures up to 0.1 cm in thickness. Hand Scudder sections from the gallbladder and the cystic duct are submitted in one cassette. / ANGELA:reji 11/30/19 TC:3 CPT: 34159
[2019-11-30] MEDS: Cefazolin 2 GM in 0.9% Normal Saline 100 ML IV (12:29)
--- NOTE | 2019-11-30 12:56 | OP.PCM_ITS ---
Problem List (1) Cholelithiasis Status: Acute Qualifiers: Cholelithiasis location: gallbladder Cholecystitis presence: with cholecystitis Cholecystitis acuity: acute and chronic Biliary obstruction: without biliary obstruction Qualified Code(s): K80.12 - Calculus of gallbladder with acute and chronic cholecystitis without obstruction Report of Operation Date of Procedure: 11/30/19 Pre-Operative Diagnosis: Symptomatic cholelithiasis Post-Operative Diagnosis: Same Surgery/Procedure Performed:: Laparoscopic cholecystectomy Type of Anesthesia:: General Anesthesiologist: Brett Bhatia Specimen's removed: Gallbladder Estimated Blood Loss (mL): < 25 cc Description of Procedure: Patient was brought into the operating room. Placed in the supine position. Under excellent general trach intubation the abdomen was sterilely prepped and draped in usual fashion. Local was injected infraumbilically. Dissection was carried down to the fascia. The fascia grasped with a [place]. Varies needle was placed inside the abdomen. The abdomen was insufflated to 15 torr. A 10/12 trocar was placed without difficulty. The patient was placed in the head up and rotated to the left position. Subxiphoid #5 trochars placed, inferior to this another #5 trocar was placed, laterally a #5 trocar was placed. All of these under direct visualization without injury to underlying structures. Fundus of the gallbladder was grasped retracted in a cephalad direction patient is placed in the head up and rotated to the left position. I dissected out the cystic du ct tissue here was reasonably thick with some edema identified I was able to place hemoclips proximally distally on the duct after I had dissected both the cystic duct cystic artery and posterior to the gallbladder towards the liver and I had all the structures very clearly seen I ligated the duct. Cystic artery was identified hemoclips proximally distally and ligated the artery. I also put a Hemoclip on the posterior branch of the cystic artery. I deliver the gallbladder from the gallbladder bed with use of electrocautery. I had no spillage of bile or stones. Placed in a specimen bag delivered through the umbilical port without difficulty. I irrigated the right upper quadrant. Patient was noted to have a rather long retrocecal appendix and went all the way up to the liver looked normal and there was no signs of inflammation. Duodenum looked normal there is no signs of inflammation around this. I did the rest of the stomach. Use electrocautery on the liver bed for good pneumostasis. I remove the trochars under direct visualization hemostasis was noted close the fascia the umbilical port the [id number] stitch of 0 Vicryl. Skin incisions were closed with subcuticular stitches of 4-0 Monocryl. Steri-Strips were applied sterile dressings were applied and the patient tolerated the procedure well. - Admit VTE Documentation VTE Present on Admission: No VTE Mechan Device Prophylaxis: SCD's VTE Pharm Prophylaxis ordered?: No Reason prophylaxis not ordered:: Treatment Not Indicated [id number]: [id number] Laparoscopic cholecystectomy
[2019-11-30] MEDS: Bupivacaine Mpf 0.5% 30 ML VIAL (13:00)
--- NOTE | 2019-11-30 13:01 | DCINST_ITS ---
Discharge Diet: Light diet - advance as tolerated Discharge Activity: May Not Drive - for 2-3 days or while taking narcotic pain medications., - - Do not drive, work heavy equipment or sign legal documents for 24 hours. May shower in (days): 1 - with the bandage in place. Additional Activity Instructions:: Pain medication may cause nausea. You should typically eat light foods as you take your pain medications. Pain medication may also cause constipation. If this is a problem for you, please discuss with your doctor. Call your doctor if your incision/area has: Continuous Slow Oozing, Sudden Increased Bleeding, Increased Pain/ Swelling, Increased Redness, Foul Smelling Discharge Call your doctor if you observe: Fever of 101 or Higher Suture Line Care: Avoid Pulling/Pushing, Avoid Pinching/Bending Additional Dressing/Incision Instructions:: Leave operative bandaids on for 2 days. When you remove dressing, leave Steri-Strips on until your follow-up appointment, or until the Steri-Strips fall off on their own. Allergies/Adverse Reactions: Allergies diclofenac sodium [From Voltaren] Allergy (Verified 11/29/19 13:22) Unknown hydrocodone bitartrate [From Vicodin] Adverse Reaction (Verified 11/29/19 13:22) Vomiting Medications to take at Discharge ondansetron HCl 4 mg tablet 4 mg PO Q6H PRN #10 tab 11/29/19 oxycodone-acetaminophen 5 mg-325 mg tablet 1 tab PO Q4H PRN #30 tab 11/29/19 Primary Care Physician: Miles Baker MD [Primary Care Provider] - Test Results: Test results from this visit will be discussed in further detail at your follow- up appointment, if applicable. Please Follow Up With: Farhan Aguila MD - Please call [phone] to schedule an appointment. When: 7 days after your surgery.
[2019-11-30] MEDS: oxyCODONE 5 MG Tablet PO (15:39)
== END 2019-11-30 16:08 | disposition home or self-care (01) ==
LOC: SDC 10:06 → AC 10:08
PROVIDERS: Anesthesiology; PCP Family Medicine; Visit Provider Surgery
PROC: (CPT 47562; principal; 2019-11-30 11:40)
DX: K80.10 Calculus of gallbladder with chronic cholecystitis without obstruction (principal); R10.11 Right upper quadrant pain; E03.9 Hypothyroidism, unspecified; F32.9 Major depressive disorder, single episode, unspecified; F17.200 Nicotine dependence, unspecified, uncomplicated; Z88.5 Allergy status to narcotic agent
CPT/HCPCS: 00790; 47562; 81025; 88304; 93005; J7120; J2405

== ENCOUNTER 2020-10-04 12:22 | Observation (INO) | payer SELFPAY ==
[2020-10-04] VITALS (11 sets, daily range): BP systolic 103–132; BP diastolic 66–97; PULSE 56–82; RESP 12–16; TEMP 36.1–36.9; O2SAT 97–100; BMI 37.0; BMI 36.6
--- NOTE | 2020-10-04 13:28 | EKG12_ITS ---
Test Reason : CP Blood Pressure : / mmHG Vent. Rate : 063 BPM Atrial Rate : 063 BPM P-R Int : 130 ms QRS Dur : 086 ms QT Int : 434 ms P-R-T Axes : 023 057 032 degrees QTc Int : 444 ms Normal sinus rhythm Normal ECG Confirmed by DAVIDA DREW, LASHAY ([id number]), department editor CATHI HINOJOSA ([id number]) on 10/07/2020 12:43:07 PM Referred By: BEAR Confirmed By:LASHAY HIGUERA MD
--- NOTE | 2020-10-04 13:28 | RAD_ITS ---
STUDY: X-RAY CHEST REASON FOR EXAM: Female, 39 years old. Chest pain TECHNIQUE: Single AP portable view of the chest. COMPARISON: Comparison is made with prior study 05/11/2018. FINDINGS: EKG electrodes are seen. Mild degree of increased markings in the left lower lobe suggestive of early left lower lobe infiltrate. There is no demonstrated pleural abnormality. Normal size heart. Normal mediastinum and ramses. Normal visualized pulmonary arteries. Normal visualized aortic arch and descending thoracic aorta. Normal visualized thoracic spine. Normal visualized ribs, clavicles, and shoulders. There is no demonstrated abnormality of the visualized soft tissue structures of the upper abdomen. RAD/Chest 1 View (Portable) IMPRESSION: Findings suggestive of early left lower lobe infiltrate. Electronically Signed: Adolfo Herring MD at 14:00 EDT , Service support ,
--- NOTE | 2020-10-04 13:29 | ED.VIS.CHEST ---
HPI History of Present Illness Chief Complaint: Chest Pain Informant: patient Narrative Narrative: Patient is having intermittent episodes of chest pain for the last 2 days. She states it is always either on the left side of the sternum or just under the left breast. It occasionally is sharp but occasionally as a pressure feeling. It occasionally has gone down the left arm but not all the time. It usually lasts for a matter of minutes. Nothing specifically makes it come on or go away. It is not pleuritic. She has no recent travel surgery immobilization personal or family history of DVT or PE. However, she does have a strong family history of heart disease. Her mother in her mid 30s during bypass surgery. Grandmother also in 30s. She does not know her father's history. She states all the women in her family very young of heart disease. She denies any known pulmonary embolus. She quit smoking 2 weeks ago. She denies history of high cholesterol, high blood pressure or diabetes. She does have a history of hypothyroidism but is not on medications due to financial situation. She is not having any of the symptoms at this time. Yesterday she had said no nausea or diaphoresis. However, she has had that with some episodes today. [facility] Medical History (Updated 10/04/20 @ 15:[address] Mckay Griggs MD) Acid reflux Asthma Constipation Depression Diarrhea Epigastric pain Fatigue Hemorrhoids Hypothyroidism Migraine Nausea RUQ abdominal pain Thyroid disease Tobacco dependence syndrome Vomiting Home Medications NK 10/04/20 [History Last Taken Unknown] Allergy/AdvReac Type Severity Reaction Status Date / Time diclofenac sodium Allergy Unknown Verified 10/04/20 12:23 [From Voltaren] hydrocodone bitartrate AdvReac Vomiting Verified 10/04/20 12:23 [From Vicodin] Family History Mother Asthma Arthritis Heart disease Hypertension Surgical History Hx of partial thyroidectomy Hx of tubal ligation Social History Smoking Status: Light Smoker (<10/day) alcohol intake: current alcohol intake frequency: a few times a month substance use type: does not use caffeine: No what type of physical activity do you participate in: none ROS ROS ED Constitutional Constitutional ED: Reports sweats ENT ENT ED: Denies rhinorrhea Cardiovascular Cardiovascular: Reports as per HPI Respiratory/Chest Respiratory/Chest: Reports dyspnea; Denies cough or sputum Gastrointestinal Gastrointestinal: Reports nausea; Denies abdominal pain or vomiting Genitourinary Genitourinary ED: Denies hematuria Musculoskeletal Musculoskeletal: Denies back pain or neck pain Integumentary Denies rash Neurologic Neurologic: Denies headache(s), paresthesias or weakness Endocrine Endocrinology: Denies polydipsia or polyuria Hematologic/Lymphatic Hematologic/Lymphatic: Denies easy bruising Allergic/Immunologic Allergic/Immunologic ED: Denies urticaria EXAM Physical Exam Const Vital Signs: 10/04/20 12:23 10/04/20 12:50 10/04/20 13:35 Temperature 97.0 F L Temperature Source Temporal Pulse Rate 70 Respiratory Rate 16 Respiratory Effort Normal Non-Labored Blood Pressure 130/83 H Blood Pressure Mean 98 Pulse Ox 100 98 Oxygen Delivery Method Room Air Room Air 10/04/20 14:01 Temperature Temperature Source Pulse Rate 57 L Respiratory Rate 12 Respiratory Effort Blood Pressure 129/86 H Blood Pressure Mean 100 Pulse Ox 100 Oxygen Delivery Method Room Air Positive well nourished and well developed General Appearance ED: well developed and NAD HEENT normocephalic and atraumatic Eyes General Eye ED: Negative for pale conjunctiva or scleral icterus Chest Wall inspection of chest normal and palpation of chest normal Resp normal respiratory effort and clear to auscultation bilaterally Resp Narrative: No pleuritic pain. Effort and Inspection: respiratory distress Cardio regular rate and regular rhythm GI normal to inspection, nondistended, normoactive bowel sounds, soft to palpation and non-tender Back/Spine no CVA tenderness Extremity normal to inspection General Extremety ED: Negative for edema, pulses abnormal or tenderness General Extremity: Negative for edema or pulses abnormal Neuro Sensorium / Orientation: awake and alert Psych mental status grossly normal Skin no rashes or lesions noted Heart Score History: Highly Suspicious ECG: Normal Age: </= 45 years Risk Factors: >/= 3 Risk Factors or History of CAD Troponin: </= Normal Limit Score: 4 MDM MDM MDM Narrative Medical decision making narrative: Patient's CBC shows no marked abnormalities. Electrolytes are good. Troponin is negative. Chest x-ray is read as findings suggestive of early left lower lobe infiltrate. I looked at these images. I do not see any marked changes. I looked back at a x-ray from 05/11/2018 that looks similar. I talk with the patient again. She is not having cough or sputum production or fevers. She reaffirms that she has no known risk factor for pulmonary embolus such as travel surgery or family history. She is not tachypneic tachycardic or hypoxic. Her symptoms are intermittent and last about 5 to 7 minutes. She does have strong family history of heart disease. She has the family history, obesity and smoking risks. She has a heart score of 4. I discussed case with hospitalist who is seeing the patient at this time. Although this patient is quite young, she has a very strong history of heart disease. She has obesity and smoking. She has a very good story for heart disease. She has only had the symptoms intermittently for 2 days. She denies having them before. She has pain that occasionally radiates to the left arm. It is associated with shortness of breath and occasional nausea and an episode of diaphoresis. Lab Data Attestation: I reviewed the patient's lab results. Labs: Laboratory Results - last 24 hr 10/04/20 10/04/20 12:48 12:48 WBC 8.4 RBC 3.68 L Hgb 11.5 L Hct 35.0 L MCV 95.1 MCH 31.3 MCHC 32.9 RDW Std Deviation 44.1 H RDW Coeff of Brennan 12.5 Plt Count 289 MPV 11.1 Immature Gran % (Auto) 0.200 Neut % (Auto) 62.4 Lymph % (Auto) 30.5 [place] % (Auto) 5.8 Eos % (Auto) 0.7 Baso % (Auto) 0.4 Absolute Neuts (auto) 5.2 Absolute Lymphs (auto) 2.56 Nucleated RBC % 0 Sodium 139 Potassium 3.9 Chloride 107 Carbon Dioxide 26.0 Anion Gap 6 BUN 13 Creatinine 0.83 Estim Creat Clear Calc 86.03 Est GFR (MDRD) Af Amer 99 Est GFR (MDRD) Non-Af 81 BUN/Creatinine Ratio 15.7 Glucose 84 Calcium 8.7 Troponin I High Sens 4 Radiography Diagnostic Testing: Radiology Impression Chest X-Ray 10/04/20 13:28 IMPRESSION: Findings suggestive of early left lower lobe infiltrate. Electronically Signed: Adolfo Herring MD at 14:00 EDT , Service support , EKG Initial EKG: Comments: EKG done for chest pain read by me. This shows a sinus rhythm with rate of 63. No acute ST elevation or depression. There is slight baseline variation. ID interval, QRS duration and QTc are normal. There is no ectopy. I did repeat the EKG that shows no loss of R wave or inverted T waves. There is no marked interval change. Discharge Plan Dx/Rx/DC Orders Clinical Impression: Chest pain Disposition Disposition: Acute Care Hospital [facility]
[2020-10-04] MEDS: Aspirin 81 MG TAB.CHEW 324 MG PO (13:36)
[2020-10-04 13:40] LABS: Absolute Lymphocyte Count 2.56 X10^3/uL (0.83-4.51); Absolute Neutrophil Count 5.2 X10^3/uL (2.0-7.7); Basophil# 0.03 X10^3/uL; Basophil% 0.4 % (0-1); Eosinophil# 0.06 X10^3/uL; Eosinophils% 0.7 % (0-5); Hemoglobin 11.5 g/dL (12.0-15.0); Lymphocyte # 2.56 X10^3/ul (0.83-4.51); Lymphocyte % 30.5 % (19-41); Mean Corp Hgb Conc 32.9 g/dL (32-36); Mean Corpuscular Hgb 31.3 pg (27.0-32.0); Mean Corpuscular Volume 95.1 fL (81-99); Mean Platelet Vol. 11.1 fl (6.2-12.0); Monocyte# 0.49 X10^3/uL; Monocyte% 5.8 % (0-10); NRBC Flagged by Analyzer 0 % (0-5); Neutrophil # 5.22 X10^3/uL (2.7-7.7); Neutrophil % 62.4 % (47-70); Platelet Count 289 K/mm3 (150-450); RBC Distribution Width CV 12.5 % (11.6-14.6); RBC Distribution Width SD 44.1 fl (35.1-43.9); Red Blood Count 3.68 M/mm3 (4.2-5.4); White Blood Count 8.4 K/mm3 (4.4-11.0)
[2020-10-04 13:54] LABS: Anion Gap 6 (5-15); BUN 13 mg/dL (7-18); BUN/Creat Ratio 15.7 RATIO (10-20); Calcium,Total 8.7 mg/dL (8.5-10.1); Chloride 107 mmol/L (98-107); Creatinine, Serum 0.83 mg/dL (0.55-1.02); EST Glomerular Filtration Rate 81 mL/min (>60); Est Glom Filt Rate - Afr Amer 99 mL/min (>60); Estimated Creatinine Clearance 86.03 ml/min; Glucose 84 mg/dL (74-106); Potassium 3.9 mmol/L (3.5-5.1); Sodium Level 139 mmol/L (136-145); Troponin-I HS 4 pg/mL (3.0-54.0)
--- NOTE | 2020-10-04 13:59 | ED.RN ---
pt ambulates to bathroom, returns. 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 dr. singer informed and repeat ekg ordered. respiratory notified.
--- NOTE | 2020-10-04 16:10 | PCM.HP.STD ---
Documented by User: Suze Nuñez NP, REPAIRER FINISHED METAL-C 10/04/20 16:40 HPI - General General Date of Admission: 10/04/20 HPI Narrative CORAL SÁNCHEZ, is a 39 F who presents to the emergency room due to chest pain. Patient states she had an episode of chest pain last night which lasted a briefly and a few other episodes that woke her from her sleep. She states she was at work today when she developed chest pressure/pain in the center of her chest which radiated to her right shoulder area and down her left arm. She describes associated diaphoresis, shortness of breath and nausea. She states her symptoms improved in the emergency room however upon arriving to the floor, her chest pain has reoccurred. She denies history of similar symptoms. She denies any aggravating or alleviating factors. Denies lightheadedness. She states she does not take any daily medications. ON LICENSE OF [facility] Medical History Acid reflux Asthma Constipation Depression Diarrhea Epigastric pain Fatigue Hemorrhoids Hypothyroidism Migraine Nausea RUQ abdominal pain Thyroid disease Tobacco dependence syndrome Vomiting Home Medications NK 10/04/20 [History Last Taken Unknown] Allergy/AdvReac Type Severity Reaction Status Date / Time diclofenac sodium Allergy Unknown Verified 10/04/20 12:23 [From Voltaren] hydrocodone bitartrate AdvReac Vomiting Verified 10/04/20 12:23 [From Vicodin] Family History (Updated 10/04/20 @ 16:35 by Suze Nuñez NP, REPAIRER [employer]ISHED [employer]-C) Mother Asthma Arthritis Heart disease Hypertension Father No known health problems Surgical History Hx of cholecystectomy Hx of partial thyroidectomy Hx of tubal ligation Social History Smoking Status: Former smoker alcohol intake: current alcohol intake frequency: a few times a month substance use type: does not use caffeine: No what type of physical activity do you participate in: none ROS Constitutional Constitutional: Denies change in weight, chills, fatigue, fever(s) or weakness Cardiovascular Cardiovascular: Reports chest pain; Denies edema, lightheadedness, palpitations or syncope Respiratory/Chest Respiratory/Chest: Reports other Details: Shortness of breath associated with chest pain ; Denies cough, dyspnea, productive cough or wheezing Gastrointestinal Gastrointestinal: Reports nausea; Denies abdominal pain, constipation, diarrhea or vomiting Genitourinary Genitourinary: Denies burning urination, difficulty urinating, dysuria, hematuria, urinary frequency, urinary incontinence or urinary urgency Musculoskeletal Musculoskeletal: Denies back pain, joint pain or muscle weakness Integumentary Integumentary: Denies erythema, lesions, rash or wounds Neurologic Neurologic: Denies abnormal speech, confusion, dizziness, focal weakness, numbness, paresthesias, seizure-like activity or syncope Psychiatric Psychiatric: Denies anxiety or depression Hematologic/Lymphatic Hematologic/Lymphatic: Denies anemia, easy bleeding or easy bruising Allergic/Immunologic Allergic/Immunologic: Denies hives or asthma Vital Signs Vital Signs Vital Signs: 10/04/20 12:23 10/04/20 12:50 10/04/20 13:35 Temperature 97.0 F L Temperature Source Temporal Pulse Rate 70 Respiratory Rate 16 Respiratory Effort Normal Non-Labored Blood Pressure 130/83 H Blood Pressure Mean 98 Pulse Ox 100 98 Oxygen Delivery Method Room Air Room Air 10/04/20 14:01 10/04/20 15:41 Temperature 98.5 F Temperature Source Oral Pulse Rate 57 L 71 Respiratory Rate 12 16 Respiratory Effort Blood Pressure 129/86 H 132/66 H Blood Pressure Mean 100 88 Pulse Ox 100 98 Oxygen Delivery Method Room Air Room Air Weight Weight: 229 lb 15.074 oz Body Mass Index (BMI) 37.0 Physical Exam Const alert, oriented x3 and no apparent distress Orientation / Consciousness: awake, oriented to person, oriented to place and oriented to time HEENT normocephalic and moist oral mucous membranes Eyes PERRL, EOMs intact bilaterally and conjunctivae normal Neck no lymphadenopathy Resp normal respiratory effort and clear to auscultation bilaterally Cardio regular rate, regular rhythm and no murmurs Peripheral Pulses: pulses 2+ throughout GI normal to inspection, nondistended, normoactive bowel sounds, non-tender and non-distended Extremity normal to inspection Skin no rashes or lesions noted Lesions: no lesions Rashes: no rashes Trauma: no lacerations or abrasions Neuro CN's II-XII intact bilaterally, no focal motor deficits, no sensory deficits noted and deep tendon reflexes 2+ bilaterally Psych mental status grossly normal and affect normal Results Lab / Micro Data Result Diagrams: 10/04/20 12:48 10/04/20 12:48 Labs: Laboratory Results - last 24 hr 10/04/20 12:48: WBC 8.4, RBC 3.68 L, Hgb 11.5 L, Hct 35.0 L, MCV 95.1, MCH 31.3, MCHC 32.9, RDW Std Deviation 44.1 H, RDW Coeff of Brennan 12.5, Plt Count 289, MPV 11.1, Immature Gran % (Auto) 0.200, Neut % (Auto) 62.4, Lymph % (Auto) 30.5, [place] % (Auto) 5.8, Eos % (Auto) 0.7, Baso % (Auto) 0.4, Absolute Neuts (auto) 5.2, Absolute Lymphs (auto) 2.56, Nucleated RBC % 0 10/04/20 12:48: Sodium 139, Potassium 3.9, Chloride 107, Carbon Dioxide 26.0, Anion Gap 6, BUN 13, Creatinine 0.83, Estim Creat Clear Calc 86.03, Est GFR (MDRD) Af Amer 99, Est GFR (MDRD) Non-Af 81, BUN/Creatinine Ratio 15.7, Glucose 84, Calcium 8.7, Troponin I High Sens 4 Radiology Impression Chest X-Ray 10/04/20 13:28 IMPRESSION: Findings suggestive of early left lower lobe infiltrate. Electronically Signed: Adolfo Herring MD at 14:00 EDT , Service support , Assessment & Plan Assessment/Plan (1) Chest pain: PLAN: 1. Chest pain-initial EKG without ST-T changes. Patient reports a significant family history of heart disease. Trend enzymes. Aspirin. Check lipid profile in a.m. Plan for stress test in a.m. if enzymes remain unremarkable. 2.History of hypothyroidism status post partial thyroidectomy-check TSH. Not on regimen. 3. Tobacco dependence-encouraged cessation. Patient states she has been trying to quit over the past month. 4. Chronic intermittent asthma-no acute exacerbation. 5. Obesity-encouraged diet and lifestyle modifications. DVT prophylaxis-low risk, not indicated This patient was seen by LARRY Roberts under the supervision of Dr. Messer. Documented by User: Dr. Miles Messer DO 10/04/20 18:42 HPI - General General Date of Admission: 10/04/20 PFSH Medical History Acid reflux Asthma Constipation Depression Diarrhea Epigastric pain Fatigue Hemorrhoids Hypothyroidism Migraine Nausea RUQ abdominal pain Thyroid disease Tobacco dependence syndrome Vomiting Home Medications NK 10/04/20 [History Last Taken Unknown] Allergy/AdvReac Type Severity Reaction Status Date / Time diclofenac sodium Allergy Unknown Verified 10/04/20 12:23 [From Voltaren] hydrocodone bitartrate AdvReac Vomiting Verified 10/04/20 12:23 [From Vicodin] Family History (Updated 10/04/20 @ 16:35 by Suze Nuñez REPAIRER FINISHED METAL, REPAIRER FINISHED METAL-C) Mother Asthma Arthritis Heart disease Hypertension Father No known health problems Surgical History Hx of cholecystectomy Hx of partial thyroidectomy Hx of tubal ligation Social History Smoking Status: Former smoker alcohol intake: current alcohol intake frequency: a few times a month substance use type: does not use caffeine: No what type of physical activity do you participate in: none Results Lab / Micro Data Result Diagrams: 10/04/20 12:48 10/04/20 12:48 Charges/Coding Addendum Addendum: Patient was seen and examined independently of Suze Nuñez today, she came to the ER today at [facility] for evaluation of intermittent chest pain that she has had since yesterday, she states the chest pain is pressure-like in nature but occasionally sharp in nature and centered in the middle of her chest, it radiates sometimes to her left shoulder and down her left arm. It is not related to any activity it can happen at rest, she stated last night it awoke her from sleep. Patient is an ex-smoker, she has not smoked in a week, she has a family history of heart disease with her mother having early heart disease in her 40s. Patient does not know what her cholesterol number is, she does not see a physician currently because she has no insurance. She has a history of thyroid cancer in the past and has been off thyroid medication for 6 months because she has not seen a physician. On examination she appeared in good health and spirits, she does not appear to be in any distress. Vital signs as documented. Skin warm and dry and without overt rashes. Neck without JVD, thyroid appears normal, trachea is midline, neck is supple. Lungs clear, normal air movement was noted. Heart exam notable for regular rhythm, normal sounds and absence of murmurs, rubs or gallops. Abdomen unremarkable and without evidence of organomegaly, masses, or abdominal aortic enlargement, bowel sounds are present in all 4 quadrants, no abdominal tenderness was noted. Extremities nonedematous, no cyanosis was noted, no clubbing was noted. Neuro: Cranial nerves II through XII are grossly intact, no focal motor deficits were noted, sensation to light touch and pinprick is intact, motor exam 5/5 throughout. Psych: Patient is alert and oriented x3, she does not appear anxious or depressed, she does not appear agitated. Work-up in the ER was unremarkable including troponins and EKG and chest x-ray. Patient will be placed in observation status on PCU, cardiac enzymes will be cycled, she will undergo an exercise nuclear stress test tomorrow if her enzymes remain normal. This chest pain is somewhat atypical but she has a bad family history and she is an ex-smoker. Lipid profile will be obtained. I have reviewed Suze Nuñez's history and physical including her medical assessment and plan of care and endorse it. Visit Charges OBSV E&M: 51483 Initial observation care L3
--- NOTE | 2020-10-04 16:27 | PCS.PANDOC ---
PANDEMIC DOCUMENTATION INITIATED: Date: 09/23/2020 Time: 190
--- NOTE | 2020-10-04 16:34 | EKG12_ITS ---
Test Reason : CP Blood Pressure : / mmHG Vent. Rate : 061 BPM Atrial Rate : 061 BPM P-R Int : 134 ms QRS Dur : 086 ms QT Int : 440 ms P-R-T Axes : 040 064 041 degrees QTc Int : 442 ms Normal sinus rhythm Normal ECG When compared with ECG of 04-OCT-2020 14:05, MANUAL COMPARISON REQUIRED, DATA IS UNCONFIRMED Confirmed by DAVIDA DREW, LASHAY ([id number]), continuity editor CATHI HINOJOSA ([id number]) on 10/08/2020 9:45:54 AM Referred By: Confirmed By:LASHAY HIGUERA MD
--- NOTE | 2020-10-04 16:48 | EKG12_ITS ---
Test Reason : REPEAT Blood Pressure : / mmHG Vent. Rate : 059 BPM Atrial Rate : 059 BPM P-R Int : 144 ms QRS Dur : 092 ms QT Int : 456 ms P-R-T Axes : 039 052 035 degrees QTc Int : 451 ms Sinus bradycardia Otherwise normal ECG Confirmed by DAVIDA DREW, LASHAY ([id number]), legal editor CATHI HINOJOSA ([id number]) on 10/07/2020 12:43:25 PM Referred By: PL Confirmed By:LASHAY HIGUERA MD
[2020-10-04] MEDS: Nitroglycerin (INPATIENT USE) 0.4 MG TAB.SUBL SL ×2 (17:16→20:01)
[2020-10-04] MEDS: 0.9% Saline Lock 10 ML Syringe IV ×2 (17:22→20:07)
[2020-10-04] MEDS: Morphine 2 MG/ML Syringe 1 MG IV ×2 (17:23→20:07)
[2020-10-04 17:38] LABS: Troponin-I HS 4 pg/mL (3.0-54.0)
[2020-10-04 19:47] LABS: T4 Total, Thyroxin 3.9 ug/dL (4.8-13.9); Troponin-I HS 5 pg/mL (3.0-54.0)
[2020-10-05 03:00] VITALS: PULSE 66
[2020-10-05 03:10] VITALS: BP 105/67; PULSE 69; RESP 16; TEMP 36.4; O2SAT 97
[2020-10-05] MEDS: 0.9% Saline Lock 10 ML Syringe IV (03:13)
[2020-10-05] MEDS: Morphine 2 MG/ML Syringe 1 MG IV (03:14)
--- NOTE | 2020-10-05 05:55 | EKG12_ITS ---
Test Reason : AM EKG Blood Pressure : / mmHG Vent. Rate : 066 BPM Atrial Rate : 066 BPM P-R Int : 152 ms QRS Dur : 090 ms QT Int : 450 ms P-R-T Axes : 044 067 036 degrees QTc Int : 471 ms Normal sinus rhythm Normal ECG When compared with ECG of 04-OCT-2020 16:34, MANUAL COMPARISON REQUIRED, DATA IS UNCONFIRMED Confirmed by DAVIDA DREW, LASHAY ([id number]), senior editor CATHI HINOJOSA ([id number]) on 10/08/2020 9:42:07 AM Referred By: KIP Confirmed By:LASHAY HIGUERA MD
[2020-10-05 06:44] VITALS: BP 96/66; PULSE 61; RESP 16; TEMP 36.6; O2SAT 97
[2020-10-05 07:04] LABS: Cholesterol 203 mg/dL (200); High Density Lipoprotein 36 mg/dL; Triglycerides 166 mg/dL; Very Low Density Lipoprotein 33 mg/dL (5-40)
[2020-10-05 07:35] VITALS: PULSE 60
[2020-10-05 08:04] VITALS: BP 100/66; PULSE 77; RESP 16; TEMP 36.5; O2SAT 98
--- NOTE | 2020-10-05 10:28 | STRESSREP ---
Stress Test Report Pharmacologic myocardial perfusion stress test. 39-year-old lady with a history of chest pain. Stress protocol: Resting EKG demonstrates normal sinus rhythm with a rate of 74 bpm normal intervals are noted resting blood pressure is 120/80 mmHg. 0.4 mg of regadenoson was infused per usual protocol followed by intravenous saline flush injection continuous EKG monitoring was performed. The maximum heart rate attained was 110 bpm which was 60% of maximum. Heart rate the maximum workload was 1 metabolic equivalent. At rest there were no ST or T wave changes noted to suggest abnormal flow reserve and at peak infusion nonspecific ST changes were noted with did not meet the criteria for ischemia. No clinical angina was noted. Myocardial perfusion protocol. 14.2 mCi of technetium 99m sestamibi was injected at rest. 0.4 mg of regadenoson was infused per usual protocol. At peak infusion 44.4 mCi of technetium 99m sestamibi was injected stress images were obtained stress and rest images were reconstructed and compared in the short axis vertical long horizontal long axis. Gated images were also obtained per Perfusion SPECT analysis: Review of the stress images demonstrate normal uptake of tracer noted in all areas of the myocardium. The resting images similarly demonstrate normal uptake of tracer noted in all areas of the myocardium. No areas of reversibility are noted suggest ischemia and no previous infarct is noted. Gated SPECT analysis: The gated ejection fraction is 65%. Conclusion: Normal pharmacologic myocardial perfusion stress test. Preserved ejection fraction.
--- NOTE | 2020-10-05 12:42 | PCM.DC ---
Discharge Instructions Diet Discharge Diet: Low fat / Low cholesterol Activity Discharge Activity: Return to Normal Activity Dressing / Incision Call your doctor if you observe: Shortness of breath, Dizziness and Chest pain Follow Up Care Test Results: Test results from this visit will be discussed in further detail at your follow-up appointment, if applicable. Discharge Plan Admission Admit Date/Time: 10/04/20 16:48 Primary Reason for Your Visit: chest pain Attending Provider: Edis Moyer Primary Care Provider: Miles Baker Discharge Orders/Prescriptions Prescriptions: New levothyroxine [Synthroid] 100 mcg tablet 100 mcg PO DAILY Qty: 30 RF: 0 amoxicillin-pot clavulanate [Augmentin] 875-125 mg tablet 1 tab PO BID Qty: 14 RF: 0 hydrocortisone 1 % ointment 1 applic topical BID 14 Days Qty: 28.35 RF: 0 Referrals / Follow Up: [facility] [Outside] - See Referral Note (3 to 5 days) Miles Baker MD [Primary Care Provider] - Disposition Disposition (needs filled in before D/C Order can be placed): Home, Self Care
--- NOTE | 2020-10-05 13:02 | PCM.DC.SUM ---
Documented by User: Suze Nuñez NP, SOUS [employer] KITCHEN MANAGER-C 10/05/20 13:07 Providers Date of Admission: 10/04/20 Date of Discharge: 10/05/20 Primary Care Physician: Dr. Miles Baker MD Reason For Visit: CHEST PAIN Diagnosis Discharge Diagnosis (1) Chest pain: Status: Acute Code(s): R07.9 - Chest pain, unspecified Medications at Discharge Home Medications amoxicillin-pot clavulanate [Augmentin] 1 tab PO BID #14 tab 10/05/20 hydrocortisone 1 applic TOPICAL BID 14 Days #28.35 g 10/05/20 levothyroxine [Synthroid] 100 mcg PO DAILY #30 tab 10/05/20 Hospital Course Operations None Procedures Nuclear stress test Summary of Care Provided Minutes Spent on Discharge: 35 Hospital Course: Patient is a 39-year-old female admitted 10/04/2020 due to chest pain. 1. Chest pain, ACS ruled out-initial EKG without ST-T changes. Patient reports a significant family history of heart disease. Patient underwent nuclear stress test which was negative for ischemia. Lipid profile mildly elevated, total cholesterol 203, LDL 134. Recommend dietary modifications and repeat lipid profile in 4 to 6 weeks as outpatient. Patient denies further chest pain. Follow-up with PCP in 3 to 5 days. 2.Hypothyroidism status post partial thyroidectomy-patient has not been on medication. TSH 66, T4 3.9, free T3 2. We will begin Synthroid 1 mcg/kg with 100 mcg daily. Will need close follow-up to trend thyroid studies. 3. Tobacco dependence-encouraged cessation. Patient states she has been trying to quit over the past month. 4. Chronic intermittent asthma-no acute exacerbation. 5. Obesity-encouraged diet and lifestyle modifications. 6. Left forearm dermatitis-topical corticosteroid prescribed. 7. Recent bronchitis, sinusitis-patient states she was treated 2 weeks ago and still reports ongoing cough. Chest x-ray shows early left lower lobe infiltrate. Rx for Augmentin at discharge for 7 day course. Physical Exam Const alert, oriented x3 and no apparent distress Orientation / Consciousness: awake, oriented to person, oriented to place and oriented to time HEENT normocephalic and moist oral mucous membranes Eyes PERRL, EOMs intact bilaterally and conjunctivae normal Neck no lymphadenopathy Resp normal respiratory effort and clear to auscultation bilaterally Cardio regular rate, regular rhythm and no murmurs Peripheral Pulses: pulses 2+ throughout GI normal to inspection, nondistended, normoactive bowel sounds, non-tender and non-distended Extremity normal to inspection Skin no rashes or lesions noted Lesions: no lesions Rashes: no rashes Trauma: no lacerations or abrasions Neuro CN's II-XII intact bilaterally, no focal motor deficits, no sensory deficits noted and deep tendon reflexes 2+ bilaterally Psych mental status grossly normal and affect normal Patient seen and examined prior to discharge. Physical assessment as noted above. Patient is stable for discharge with follow up recommendations as noted above. This patient was seen by LARRY Roberts under the supervision of Dr. Moyer. Weight / BMI Weight Weight: 227 lb 4.745 oz Body Mass Index (BMI) 36.6 ABG / Lab / Microbiology Data Result Diagrams: 10/04/20 12:48 10/04/20 12:48 Laboratory: Laboratory Results - last 24 hr 10/04/20 12:48: WBC 8.4, RBC 3.68 L, Hgb 11.5 L, Hct 35.0 L, MCV 95.1, MCH 31.3, MCHC 32.9, RDW Std Deviation 44.1 H, RDW Coeff of Brennan 12.5, Plt Count 289, MPV 11.1, Immature Gran % (Auto) 0.200, Neut % (Auto) 62.4, Lymph % (Auto) 30.5, [place] % (Auto) 5.8, Eos % (Auto) 0.7, Baso % (Auto) 0.4, Absolute Neuts (auto) 5.2, Absolute Lymphs (auto) 2.56, Nucleated RBC % 0 10/04/20 12:48: Sodium 139, Potassium 3.9, Chloride 107, Carbon Dioxide 26.0, Anion Gap 6, BUN 13, Creatinine 0.83, Estim Creat Clear Calc 86.03, Est GFR (MDRD) Af Amer 99, Est GFR (MDRD) Non-Af 81, BUN/Creatinine Ratio 15.7, Glucose 84, Calcium 8.7, Troponin I High Sens 4 10/04/20 16:50: Troponin I High Sens 4 10/04/20 19:08: Troponin I High Sens 5, TSH 66.00 H, Thyroxine (T4) 3.9 L, Free T3 pg/dL 2.0 L 10/05/20 05:38: Triglycerides 166, Cholesterol 203 H, LDL Cholesterol 134 H, VLDL Cholesterol 33, HDL Cholesterol 36 L Microbiology: Microbiology 10/04/20 17:27 Nasal Secretion SARS-CoV-2 Antigen (Rapid) - Final Radiography Diagnostic Testing: Radiology Impression Chest X-Ray 10/04/20 13:28 IMPRESSION: Findings suggestive of early left lower lobe infiltrate. Electronically Signed: Adolfo Herring MD at 14:00 EDT , Service support , D/C Instructions Discharge Diet: Low fat / Low cholesterol Call your doctor if you observe: Shortness of breath, Dizziness and Chest pain Meaningful Use Info Meaningful Use Diagnoses (Choose all that apply): None applicable Discharge Plan Admission Admit Date/Time: 10/04/20 16:48 Primary Reason for Your Visit: chest pain Attending Provider: Edis Moyer Primary Care Provider: Miles Baker Discharge Orders/Prescriptions Prescriptions: New levothyroxine [Synthroid] 100 mcg tablet 100 mcg PO DAILY Qty: 30 RF: 0 amoxicillin-pot clavulanate [Augmentin] 875-125 mg tablet 1 tab PO BID Qty: 14 RF: 0 hydrocortisone 1 % ointment 1 applic topical BID 14 Days Qty: 28.35 RF: 0 Referrals / Follow Up: [facility] [Outside] - See Referral Note (3 to 5 days) Miles Baker MD [Primary Care Provider] - Disposition Disposition (needs filled in before D/C Order can be placed): Home, Self Care Documented by User: Dr. Edis Moyer MD 10/05/20 15:21 Providers Date of Admission: 10/04/20 Reason For Visit: CHEST PAIN Medications at Discharge Home Medications amoxicillin-pot clavulanate [Augmentin] 1 tab PO BID #14 tab 10/05/20 hydrocortisone 1 applic TOPICAL BID 14 Days #28.35 g 10/05/20 levothyroxine [Synthroid] 100 mcg PO DAILY #30 tab 10/05/20 Hospital Course Summary of Care Provided Hospital Course: This patient was seen in conjunction with Suze FABIAN. I have independently interviewed and examined the patient and reviewed pertinent history, examination findings, laboratory and plan of management. I have reviewed the note and agree with the documented findings with the few additional points. In brief, patient is admitted for chest pain. EKG nondiagnostic with nonspecific ST-T changes. ACS ruled out. Patient had nuclear stress test was negative for ischemia. Fasting file shows mildly elevated LDL. Seems probably from hypothyroidism. TSH elevated. In a young patient, actual dose of Synthroid replacement is 1.6 mcg/kg body weight therefore abdominal dose will be 150 mcg daily. Advised to repeat thyroid function test after 4 weeks. Other comorbidities as mentioned above. Discharged home. I have discussed my assessment with SOUS CHEF KITCHEN MANAGERSuze and orders have been reviewed. Physical Exam Narrative Seen and examined Patient currently does not have chest pain or shortness of breath. Had partial thyroidectomy and his PCP increasing Synthroid but is still not optimized. TSH elevated. General: Alert, Oriented x3, Cooperative HEENT: Atraumatic, PERRLA, EOMI, Normocephalic Oral: No Gingival or Mucosal Lesions/ Ulcerations Neck: Supple, No JVD, Negative Carotid Bruits Lungs: Air entry equal in bilateral lung bases. No crepitation/rhonchi Cardiovascular: Regular rate, Regular Rhythm, Normal S1, Normal S2, No murmurs Abdomen: Bowel Sounds Present, Soft, Non Tender, Non-Distended : No renal angle tenderness. No suprapubic tenderness. Extremities: No edema, Capillary Refill Less than 3 Seconds Skin: No rashes, No breakdown Musculoskeletal: No Tenderness to Palpation of Joints or Extremities Neurological: Cranial nerves II-XII grossly intact, DTR 2+/4 and Symmetrical, Neuro grossly intact Psych/Mental Status: Normal Affect, Appropriate. ABG / Lab / Microbiology Data Result Diagrams: 10/04/20 12:48 10/04/20 12:48 Discharge Plan Admission Admit Date/Time: 10/04/20 16:48 Primary Reason for Your Visit: chest pain Attending Provider: Edis Moyer Primary Care Provider: Miles Baker Discharge Orders/Prescriptions Prescriptions: New levothyroxine [Synthroid] 100 mcg tablet 100 mcg PO DAILY Qty: 30 RF: 0 amoxicillin-pot clavulanate [Augmentin] 875-125 mg tablet 1 tab PO BID Qty: 14 RF: 0 hydrocortisone 1 % ointment 1 applic topical BID 14 Days Qty: 28.35 RF: 0 Referrals / Follow Up: [facility] [Outside] - See Referral Note (3 to 5 days) Miles Baker MD [Primary Care Provider] - Disposition Disposition (needs filled in before D/C Order can be placed): Home, Self Care Charges/Coding Visit Charges OBSV E&M: 36459 Observation care discharge
[2020-10-05 13:41] VITALS: BP 118/71; PULSE 87; RESP 16; TEMP 36.8; O2SAT 98
== END 2020-10-05 12:46 | disposition home or self-care (01) ==
LOC: ED 15:27 → PCU 17:02
PROVIDERS: Nurse Practitioner Family; Admitting Provider Internal Medicine; Emergency Provider Emergency Medicine; PCP Family Medicine; Visit Provider Internal Medicine
DX: R07.89 Other chest pain (principal); E89.0 Postprocedural hypothyroidism; J45.20 Mild intermittent asthma, uncomplicated; E66.9 Obesity, unspecified; Z68.36 Body mass index [BMI] 36.0-36.9, adult; K21.9 Gastro-esophageal reflux disease without esophagitis; Z82.49 Family history of ischemic heart disease and other diseases of the circulatory system; F17.200 Nicotine dependence, unspecified, uncomplicated; L30.9 Dermatitis, unspecified
CPT/HCPCS: 36415; 71045; 78452; 80048; 80061; 84436; 84443; 84481; 84484; 85025; 87426; 93005; 93017; 96374; 96376; 99218; 99285; 99406; A9500; A4216; G0378; J2785

== ENCOUNTER 2022-06-16 22:23 | Emergency (ER) | payer MEDICAID, SELFPAY ==
[2022-06-16 22:24] VITALS: BP 149/97; PULSE 80; RESP 15; TEMP 36.5; O2SAT 98; BMI 42.8
[2022-06-17 00:01] VITALS: BP 151/93; PULSE 86; RESP 16; O2SAT 96
[2022-06-17] MEDS: Famotidine 200 MG/20 ML MDV 40 MG in 0.9% Normal Saline (Pres. free 6 ML 300 MG IV (00:18)
[2022-06-17] MEDS: MethylPREDNISolone 125 MG/2 ML Vial IV (00:20)
[2022-06-17] MEDS: 0.9% Normal Saline 1,000 ML 999 ML IV (00:20)
[2022-06-17] MEDS: Metoclopramide 10 MG/2 ML Vial IV (00:20)
[2022-06-17] MEDS: DiphenhydrAMINE 50 MG/ML Syringe IV (00:20)
[2022-06-17] MEDS: Ketorolac 30 MG/ML Syringe IV (00:32)
--- NOTE | 2022-06-17 01:21 | EX.ED.DYSGE1 ---
HPI History of Present Illness Chief Complaint: Other, Pain/Inj Narrative Narrative: Patient is a 41-year-old female with past medical history of migraine headache. She states that she recently came up here from [place] and is visiting. She states that she has not washed close since being up here and she denies any new exposures but states she has developed a itchy rash across her chest abdomen arms and leg. She states no one else has the rash. She denies difficulty breathing or swallowing. She states that she has been having difficulty sleeping secondary to it and now has a right-sided headache. She reports a history of migraines and states that this feels similar nature and denies any recent trauma or sick symptoms. She states she has been trying [id number] medications without symptom improvement and secondary to his comes in for evaluation [facility] Medical History (Updated 06/17/22 @ 01:[address] Deondre Green DO) Acid reflux Asthma Constipation Depression Diarrhea Epigastric pain Fatigue Hemorrhoids Hypothyroidism Migraine Nausea RUQ abdominal pain Thyroid disease Tobacco dependence syndrome Vomiting Home Medications amoxicillin 875 mg-potassium clavulanate 125 mg tablet (Augmentin) 1 tab PO BID #14 tabs 10/05/20 [Rx Last Taken Unknown] hydrocortisone 1 % topical ointment 1 applic topical BID 2 weeks #28.35 grams 10/05/20 [Rx Last Taken Unknown] levothyroxine 100 mcg tablet (Synthroid) 100 mcg PO DAILY #30 tabs 10/05/20 [Rx Last Taken Unknown] prednisone 10 mg tablet 10 mg PO DAILY #48 TABLETS 06/17/22 [Rx Last Taken Unknown] Allergy/AdvReac Type Severity Reaction Status Date / Time diclofenac sodium Allergy Unknown Verified 06/16/22 22:27 [From Voltaren] hydrocodone bitartrate AdvReac Vomiting Verified 06/16/22 22:27 [From Vicodin] Family History (Updated 10/04/20 @ 16:35 by Suze Nuñez NP, ANSWERING SERVICE OPERATOR-C) Mother Asthma Arthritis Heart disease Hypertension Father No known health problems Surgical History Hx of cholecystectomy Hx of partial thyroidectomy Hx of tubal ligation Social History Smoking Status: Former smoker alcohol intake: current alcohol intake frequency: a few times a month substance use type: does not use caffeine: No what type of physical activity do you participate in: none ROS ROS ED Constitutional Constitutional ED: Denies chills or fever(s) Eyes Eyes: Denies change in vision ENT ENT ED: Denies sore throat Cardiovascular Cardiovascular: Denies chest pain Respiratory/Chest Respiratory/Chest: Denies cough or dyspnea Gastrointestinal Gastrointestinal: Reports nausea; Denies abdominal pain, diarrhea or vomiting Genitourinary Genitourinary ED: Denies dysuria Musculoskeletal Musculoskeletal: Denies myalgias Integumentary Reports rash Neurologic Neurologic: Reports headache(s) Hematologic/Lymphatic Hematologic/Lymphatic: Denies easy bleeding or easy bruising EXAM Physical Exam Const Vital Signs: 06/16/22 22:24 06/16/22 23:49 06/17/22 00:01 Temperature 97.7 F L Temperature Source Temporal Pulse Rate 80 86 Respiratory Rate 15 16 Respiratory Effort Normal Blood Pressure 149/97 H 151/93 H Blood Pressure Mean 114 112 Pulse Ox 98 96 Oxygen Delivery Method Room Air Room Air 06/17/22 01:35 Temperature Temperature Source Pulse Rate 52 L Respiratory Rate 16 Respiratory Effort Blood Pressure 122/67 H Blood Pressure Mean Pulse Ox 99 Oxygen Delivery Method Positive well nourished, well developed and obese General Appearance ED: well developed Nutritional Appearance: obese HEENT Reports moist mucous membranes HEENT Narrative: No tongue or lip swelling. No oral lesions or airway compromise. Eyes PERRL and EOMs intact bilaterally Neck supple Neck Narrative: No nuchal rigidity or meningeal signs Resp normal respiratory effort and clear to auscultation bilaterally Cardio regular rate and regular rhythm Extremity normal to inspection Neuro oriented x3 and CN's II-XII intact bilaterally Neuro Narrative: Cranial nerves II through XII are grossly intact there are no focal neurologic deficit. No pronator drift no dysmetria no truncal ataxia. NIH stroke scale score of 0 Sensorium / Orientation: alert Psych mental status grossly normal Skin Skin Narrative: Patient has punctate erythematous blanchable lesions across to her arms and upper legs as well as her chest abdomen and lower back. The lesions do not involve the palms or soles. No vesicular or pustule changes noted MDM MDM MDM Narrative Medical decision making narrative: Patient presented to the ER slightly hypertensive but otherwise afebrile and in no acute respiratory distress. She has no known exposure and states no one else at home has the rash. Differential diagnosis includes acute allergic reaction versus scabies or Henoch-Gail?nlein purpura or oepo-khbm-chh-mouth disease. She also reports a history of migraine headache and differential includes migraine versus sinus headache versus tension headache versus shingles or meningitis. At this time he has no nuchal rigidity there is no skull skin changes along the scalp and my concern for infectious process is low especially as patient denies any recent nasal congestion drainage or cough. Therefore patient does not need imaging or laboratory studies and she was treated with Solu-Medrol Benadryl and Pepcid for the acute allergic reaction. IV fluids as well as Toradol and Reglan were added secondary to the headache. On reevaluation she reports resolution of her headache and her neuro exam remains normal. She has no signs of respiratory distress or need for supplemental oxygen and is therefore otherwise safe for discharge History & Record Review Discussion w/independent historian: Patient Discharge Plan Triage Chief Complaint: Other, Pain/Inj ED Provider: Deondre Green Dx/Rx/DC Orders Clinical Impression: Acute allergic reaction, Cephalgia Instructions: Self-Care for Headaches, ED General Allergic Reactions Prescriptions: New prednisone 10 mg tablet 10 mg PO DAILY Qty: 48 0RF Rx Instructions: 6 po qd x 3 days, 4 po qd x 3 days, 2 po qd x 3 days, 1 po qd x 3 days No Action levothyroxine [Synthroid] 100 mcg tablet 100 mcg PO DAILY Qty: 30 0RF amoxicillin-pot clavulanate [Augmentin] 875-125 mg tablet 1 tab PO BID Qty: 14 0RF hydrocortisone 1 % ointment 1 applic topical BID 14 Days Qty: 28.35 0RF Rx Instructions: Apply to left forearm twice daily for 2 weeks. Primary Care Provider: Miles Baker Referrals: Miles Baker MD [Primary Care Provider] - Disposition Disposition: Home, Self Care Discharge Date/Time: 06/17/22 01:36
[2022-06-17 01:35] VITALS: BP 122/67; PULSE 52; RESP 16; O2SAT 99
== END 2022-06-17 01:36 | disposition home or self-care (01) ==
PROVIDERS: Emergency Provider Emergency Medicine; PCP Family Medicine; Visit Provider Emergency Medicine
DX: T78.40XA Allergy, unspecified, initial encounter (principal); Z87.891 Personal history of nicotine dependence; R51.9 Headache, unspecified; E03.9 Hypothyroidism, unspecified; Z79.899 Other long term (current) drug therapy
CPT/HCPCS: 99283; J7030; J3490

== ENCOUNTER 2023-02-25 12:21 | Emergency (ER) | payer SELFPAY ==
[2023-02-25 12:22] VITALS: BP 161/100; PULSE 99; RESP 16; TEMP 36.2; O2SAT 97; BMI 42.0
--- NOTE | 2023-02-25 12:41 | EDS_ITS ---
HPI History of Present Illness Chief Complaint: Flank Pain Informant: patient Onset/Context/Timing Onset: Today Context: Gradual Onset Timing: Continuous and Waxes and wanes Quality: Sharp, stabbing Location: Left lower abdomen and left flank Worsened by: Nothing Relieved by: Nothing Narrative Narrative: Patient presents with left lower abdominal pain and left flank pain that began today. Patient states it has gradually gotten worse throughout the day. Patient describes it as sharp. Patient states that occasionally she gets intermittent stabbing pain. Patient states nothing makes it worse and nothing makes it better. Patient denies any fevers or chills. Patient admits to some nausea because of the pain. Patient denies any dysuria or hematuria. Patient denies any chest pain or shortness of breath. [facility] Medical History Acid reflux Asthma Constipation Depression Diarrhea Epigastric pain Fatigue Hemorrhoids Hypothyroidism Migraine Nausea RUQ abdominal pain Thyroid disease Tobacco dependence syndrome Vomiting Home Medications amoxicillin 875 mg-potassium clavulanate 125 mg tablet (Augmentin) 1 tab PO BID #14 tabs 10/05/20 [Rx Last Taken Unknown] hydrocortisone 1 % topical ointment 1 applic topical BID 2 weeks #28.35 grams 10/05/20 [Rx Last Taken Unknown] levothyroxine 100 mcg tablet (Synthroid) 100 mcg PO DAILY #30 tabs 10/05/20 [Rx Last Taken Unknown] prednisone 10 mg tablet 10 mg PO DAILY #48 TABLETS 06/17/22 [Rx Last Taken Unknown] ciprofloxacin HCl 500 mg tablet 500 mg PO BID #14 TABLETS 02/25/23 [Rx Last Taken Unknown] oxycodone-acetaminophen 5 mg-325 mg tablet 1 tab PO Q6H PRN PRN Pain 3 days #12 TABLETS 02/25/23 [Rx Last Taken Unknown] Allergy/AdvReac Type Severity Reaction Status Date / Time diclofenac sodium Allergy Unknown Verified 02/25/23 12:23 [From Voltaren] hydrocodone bitartrate AdvReac Vomiting Verified 02/25/23 12:23 [From Vicodin] Family History (Updated 10/04/20 @ 16:35 by Suze Nuñez NP, DIRECTOR OF PLANT OPERATIONS-C) Mother Asthma Arthritis Heart disease Hypertension Father No known health problems Surgical History Hx of cholecystectomy Hx of partial thyroidectomy Hx of tubal ligation Social History Smoking Status: Former smoker alcohol intake: current alcohol intake frequency: a few times a month substance use type: does not use caffeine: No what type of physical activity do you participate in: none ROS ROS ED Constitutional Constitutional ED: Denies chills or fever(s) Eyes Eyes: Denies blurry vision or change in vision ENT ENT ED: Reports sore throat; Denies rhinorrhea Cardiovascular Cardiovascular: Denies chest pain or palpitations Respiratory/Chest Respiratory/Chest: Reports cough; Denies dyspnea Gastrointestinal Gastrointestinal: Denies nausea or vomiting Genitourinary Genitourinary ED: Denies dysuria or hematuria Musculoskeletal Musculoskeletal: Reports back pain; Denies neck pain Integumentary Denies Abrasions or rash Neurologic Neurologic: Denies headache(s) or weakness Allergic/Immunologic Allergic/Immunologic ED: Denies mouth swelling or urticaria EXAM Physical Exam Const Vital Signs: 02/25/23 12:22 Temperature 97.2 F L Temperature Source Temporal Pulse Rate 99 Respiratory Rate 16 Blood Pressure 161/100 H Blood Pressure Mean 120 Pulse Ox 97 Oxygen Delivery Method Room Air Positive well nourished, well developed and obese General Appearance ED: well developed and NAD Nutritional Appearance: obese HEENT Reports moist mucous membranes Neck supple and no JVD Resp normal respiratory effort and clear to auscultation bilaterally Cardio regular rate and regular rhythm GI non-distended Palpation: soft and tender LLQ; Negative for guarding or rebound tenderness present Back/Spine General Back: CVA tenderness left Extremity normal to inspection General Extremety ED: Negative for edema or tenderness General Extremity: Negative for edema Neuro oriented x3, CN's II-XII intact bilaterally and no sensory deficits noted Sensorium / Orientation: alert Motor Exam: strength 5/5 throughout Psych mental status grossly normal MDM MDM MDM Narrative Medical decision making narrative: Differential diagnosis includes ureteral calculus, pyelonephritis, diverticulitis, bowel obstruction, perforation, ectopic , and ovarian cyst. CBC will be obtained to assess for leukocytosis and anemia. Basic metabolic profile will be obtained to assess for renal function and electrolyte abnormality. Urinalysis will be obtained to assess for urinary tract infection and hematuria. CT scan of the abdomen pelvis will be obtained to assess for ureteral calculus, diverticulitis, and bowel obstruction. Lab Data Attestation: I reviewed the patient's lab results. Lab results narrative: CBC was reviewed. There is a mild leukocytosis of 13.8. Basic metabolic profile was reviewed and was within normal limits. Urinalysis was reviewed. Leukocyte Estrace was 500 with greater than 100 white blood cells. There is 1+ urine bacteria. Labs: Laboratory Results - last 24 hr 02/25/23 02/25/23 12:27 12:45 WBC 13.8 H RBC 4.01 L Hgb 12.8 Hct 38.6 MCV 96.3 MCH 31.9 MCHC 33.2 RDW Std Deviation 44.8 H RDW Coeff of Brennan 12.9 Plt Count 247 MPV 11.1 Immature Gran % (Auto) 0.300 Neut % (Auto) 70.8 H Lymph % (Auto) 22.5 Hopkins % (Auto) 4.8 Eos % (Auto) 1.1 Baso % (Auto) 0.5 Absolute Neuts (auto) 9.8 H Absolute Lymphs (auto) 3.12 Nucleated RBC % 0 Sodium 134 L Potassium 4.0 Chloride 105 Carbon Dioxide 23.0 Anion Gap 6 BUN 12 Creatinine 0.79 Estim Creat Clear Calc 126.73 Est GFR (MDRD) Af Amer 103 Est GFR (MDRD) Non-Af 85 BUN/Creatinine Ratio 15.2 Glucose 106 Calcium 9.3 Urine Color Straw Urine Clarity Cloudy Urine pH 7.0 Ur Specific [place] 1.010 Urine Protein 100 H Urine Glucose (UA) Normal Urine Ketones Negative Urine Occult Blood 250 H Urine Nitrite Negative Urine Bilirubin Negative Urine Urobilinogen Normal Ur Leukocyte Esterase 500 H Urine RBC 5-10 SEEN Urine WBC >100 SEEN Ur Squamous Epith Cells 0 SEEN Urine Bacteria 1+ Urine Mucus 0 SEEN Radiography Diagnostic Testing: Clinical Impression(s) from Imaging Studies Abdomen/Pelvis CT 02/25/23 12:45 IMPRESSION: 1. Mild hepatomegaly. 2. No evidence of urinary tract stone disease. Electronically Signed: Kobi Gray MD at 13:34 EST , CT scan of the abdomen pelvis was obtained. There is mild hepatomegaly. There is no ureteral calculus, hydronephrosis, or hydroureter. There is no free air or free fluid. There is no evidence of bowel obstruction or perforation. This was interpreted by the radiologist and was also independently reviewed by myself. Additional Tests and Interventions Additional Tests or Interventions: Urine culture was ordered. Treatment and Re-Evaluation :: Patient was given IV fluids, morphine, and Zofran initially. Patient was given a dose of Rocephin. Patient was still having pain on reevaluation. Patient was given a dose of Dilaudid and Toradol. Patient is feeling better after this. Patient was advised of her findings. Patient was given prescription for Percocet and Cipro. Patient was instructed to drink plenty of fluids. Patient was instructed to follow-up with her primary care physician in 5 to 7 days. Patient understood and was agreeable with the plan. All questions were answered. Discharge Plan Triage Chief Complaint: Flank Pain ED Provider: Brett Chandler Dx/Rx/DC Orders Clinical Impression: Urinary tract infection, Abdominal pain Instructions: ED Pyelonephritis, Female (Adult) Prescriptions: New ciprofloxacin HCl [ciprofloxacin HCl] 500 mg tablet 500 mg PO BID Qty: 14 0RF oxycodone-acetaminophen [oxycodone-acetaminophen] 5-325 mg tablet 1 tab PO Q6H PRN PRN (Reason: Pain) 3 Days Qty: 12 0RF No Action levothyroxine [Synthroid] 100 mcg tablet 100 mcg PO DAILY Qty: 30 0RF amoxicillin-pot clavulanate [Augmentin] 875-125 mg tablet 1 tab PO BID Qty: 14 0RF hydrocortisone 1 % ointment 1 applic topical BID 14 Days Qty: 28.35 0RF Rx Instructions: Apply to left forearm twice daily for 2 weeks. prednisone 10 mg tablet 10 mg PO DAILY Qty: 48 0RF Rx Instructions: 6 po qd x 3 days, 4 po qd x 3 days, 2 po qd x 3 days, 1 po qd x 3 days Primary Care Provider: Care Physician,No Primary Referrals: NOT,DEFINED [Non-Staff] - Disposition Disposition: Home, Self Care Capacity Legal Chronometer Adjuster Reflex Medical hold order details:: IF a medical hold is selected below, a suggested order for a MEDICAL HOLD will reflex upon signing the document. Next of kin: [place] law dictates a PRIORITY LIST for identifying legal decision-maker/legal next of kin in the following order (LNOK): 1st: The patient?s legal guardian, if any 2nd: The patient's spouse (if status is questionable, consult Risk Management) 3rd: The patient?s adult child(opal) (majority, if multiple children) 4th: The patient?s parents 5th: The patient?s adult siblings (majority, if multiple children siblings)
--- NOTE | 2023-02-25 12:45 | CT_ITS ---
EXAM: CT ABDOMEN AND PELVIS WITHOUT INTRAVENOUS CONTRAST CLINICAL INDICATION: Left flank pain TECHNIQUE: Helically acquired images were obtained of the abdomen and pelvis without intravenous contrast. This CT exam was performed using one or more of the following dose reduction techniques: automated exposure control, adjustment of the mA and/or kV according to patient size, and/or use of iterative reconstruction technique. COMPARISON: CT Abdomen Pelvis dated 10/22/2014 FINDINGS: LOWER THORAX: Normal. Lung bases are clear. No cardiomegaly. No pericardial effusion. ABDOMEN: LIVER: Mild hepatomegaly. Resolution of the previously noted steatosis. GALLBLADDER AND BILE DUCTS: Interval cholecystectomy. PANCREAS: Normal. No focal cystic mass. SPLEEN: Normal. Normal size without focal cystic or solid mass. ADRENALS: Normal. No nodules. KIDNEYS AND URETERS: Normal kidneys and ureters. No hydronephrosis. STOMACH AND BOWEL: Normal. No bowel distention. No focal inflammatory change. PELVIS: APPENDIX: Appendix is visualized and normal in appearance. BLADDER: Normal. REPRODUCTIVE: Unremarkable as visualized. No mass. ABDOMEN and PELVIS: INTRAPERITONEAL SPACE: Normal. No ascites or other fluid collection. No free air. BONES/JOINTS: No suspicious lytic or blastic abnormality. SOFT TISSUES: Normal. No discrete abdominal or pelvic wall hernia. VASCULATURE: Normal. Abdominal aorta is non-dilated. LYMPH NODES: Normal. No enlarged lymph nodes. CT/Abdomen/Pelvis without Cont IMPRESSION: 1. Mild hepatomegaly. 2. No evidence of urinary tract stone disease. Electronically Signed: Kobi Gray MD at 13:34 EST ,
[2023-02-25 12:54] LABS: Absolute Lymphocyte Count 3.12 X10^3/uL (0.83-4.51); Absolute Neutrophil Count 9.8 X10^3/uL (2.0-7.7); Basophil# 0.07 X10^3/uL; Basophil% 0.5 % (0-1); Eosinophil# 0.15 X10^3/uL; Eosinophils% 1.1 % (0-5); Hematocrit 38.6 % (37-47); Hemoglobin 12.8 g/dL (12.0-15.0); Lymphocyte # 3.12 X10^3/ul (0.83-4.51); Lymphocyte % 22.5 % (19-41); Mean Corp Hgb Conc 33.2 g/dL (32-36); Mean Corpuscular Hgb 31.9 pg (27.0-32.0); Mean Corpuscular Volume 96.3 fL (81-99); Mean Platelet Vol. 11.1 fl (6.2-12.0); Monocyte# 0.66 X10^3/uL; Monocyte% 4.8 % (0-10); NRBC Flagged by Analyzer 0 % (0-5); Neutrophil % 70.8 % (47-70); Platelet Count 247 K/mm3 (150-450); RBC Distribution Width CV 12.9 % (11.6-14.6); RBC Distribution Width SD 44.8 fl (35.1-43.9); Red Blood Count 4.01 M/mm3 (4.2-5.4); White Blood Count 13.8 K/mm3 (4.4-11.0)
[2023-02-25] MEDS: Ondansetron 4 MG/2 ML Vial IV (12:55)
[2023-02-25] MEDS: Morphine 4 MG/ML Syringe IV (12:56)
[2023-02-25] MEDS: 0.9% Normal Saline (1000mL) 1,000 ML 1000 ML IV (12:58)
[2023-02-25 13:06] LABS: Anion Gap 6 (5-15); BUN 12 mg/dL (7-18); BUN/Creat Ratio 15.2 RATIO (10-20); Calcium,Total 9.3 mg/dL (8.5-10.1); Chloride 105 mmol/L (98-107); Creatinine, Serum 0.79 mg/dL (0.55-1.02); EST Glomerular Filtration Rate 85 mL/min (>60); Est Glom Filt Rate - Afr Amer 103 mL/min (>60); Estimated Creatinine Clearance 126.73 ml/min; Glucose 106 mg/dL (74-106); Sodium Level 134 mmol/L (136-145)
[2023-02-25 13:15] LABS: Mucous, Urine 0 SEEN /hpf (<or=2+); Squamous Epithelial Cells - UA 0 SEEN /hpf (5-10)
--- OUTSIDE RECORDS SUMMARY | 2023-02-25 13:37 | XMS RPT_ITS | CCD ---
Author Name Unknown Address [address] [place] [address] Organization [facility] Care Team Providers Care Renewals Specialist Name Role Phone PHYSICIAN, NONE Primary Care Physician Unavailab homa Altamirano PT, Mendy Unavailable Unavailable J LUIS DREW, DR ENGLE Primary Care Physician DR KADIE DIETZ MD Primary Care Physician Kadie Dietz MD Primary Care Provider Alissa Briseno CNP Unavailable Joaquin PERSONNEL RECRUITER, Pola Unavailable Joaquin PERSONNEL RECRUITER, Pola Unavailable TRINI AMBJENNIEH Referring Unavailable JOAQUIN POLA Referring Unavailable JOAQUIN POLA Referring Unavailable JACKIE MEDINA Attending Unavailable DR KADIE DIETZ MD Primary Care Unavailab homa NUÑEZ C SOFTWARE DEVELOPER-POLA QIU Attending Unava ilable Allergies Allergy Classification Reported Allergen(s) Allergy Type Date of Onset Reaction(s) Facility (7 sources) Acetaminophen / HYDROcodone; Translations: [acetaminophen-hyd rocodone] Drug Allergy 03-31-2010 GI Upset [facility] (3 sources) Diclofenac; Translations: [diclofenac] Drug Allergy [facility] (5 sources) Diclofenac; Translations: [DICLOFENAC SODIUM] Drug Allergy 08-22-2013 GI [facility] Work Phone: (1 source) Acetaminophen / HYDROcodone; Translations: [HYDROCODONE-ACETA MINOPHEN] Drug Allergy 03-31-2010 [facility] Repository Medications Current Medications Medication Drug Class(es) Dates Sig (Normalized) Sig (Original) albuterol MDI (90 mcg/inh) CFC free inhalation aerosol (3 sources) Start: 08-31-2020 take 2 puff(s) by inhalation every four hours albuterol MDI (90 mcg/inh) CFC free inhalation aerosol 2 puff(s), Inhalation, q4h, # 1 EA, 0 Refill(s), Bronchitis Start Date: 08/31/20 Status: Ordered levothyroxine sodium 0.15 mg oral tablet (11 sources) l-Thyroxine Start: 10-24-2020 levothyroxine 150 mcg (0.15 mg) oral tablet 0 Refill(s) Start Date: 10/24/20 Status: Ordered Completed/Discontinued Medications Medication Drug Class(es) Dates Sig (Normalized) Sig (Original) acetaminophen 325 mg / oxyCODONE hydrochloride 5 mg oral tablet (3 sources) Opioid Agonist Start: 10-24-2020 End: 10-27-2020 take 1 tablet by mouth every four hours as needed for pain Percocet 5 mg-325 mg oral tablet Dose = 1 tab(s), Oral, q4h, PRN for pain, # 12 tab(s), 0 Refill(s), COVID-19, 104.5 Start Date: 10/24/20 Stop Date: 10/27/20 Status: Ordered atorvastatin 10 mg oral tablet (1 source) HMG-CoA Reductase Inhibitor Start: 11-30-2022 take 1 tablet by mouth once daily at bedtime atorvastatin (LIPITOR) 10 mg tablet Take 10 mg by mouth daily at bedtime. 0 11/30/2022 Active Problems Active Problems Problem Classification Problem Date Documented Date Episodic/Chronic Anxiety disorders (4 sources) Anxiety; Translations: [Anxiety disorder, unspecified] Onset: 06-13-2012 06-13-2012 Chronic Coma; stupor; and brain damage (1 source) Somnolence; Translations: [Daytime sleepiness] Onset: 12-21-2022 Episodic Immunizations and screening for infectious disease (2 sources) Other specified abnormal immunological findings in serum; Translations: [Positive HETAL (antinuclear antibody)] Onset: 12-21-2022 Episodic Malaise and fatigue (2 sources) Other malaise; Translations: [Other fatigue] Onset: 12-21-2022 Episodic Mood disorders (8 sources) Bipolar I disorder; Translations: [Bipolar disorder, unspecified] Onset: 06-13-2012 06-13-2012 Chronic Other connective tissue disease (1 source) Polymyalgia rheumatica; Translations: [Polymyalgia (HCC)] Onset: 12-21-2022 Chronic Other ear and sense organ disorders (1 source) Otitis externa; Translations: [Unspecified otitis externa, unspecified ear] Onset: 01-13-2021 Chronic Other non-traumatic joint disorders (1 source) Pain in unspecified joint; Translations: [Polyarthralgia] Onset: 12-21-2022 Episodic Other nutritional; endocrine; and metabolic disorders (4 sources) Obese class II; Translations: [Obesity, unspecified] Onset: 01-13-2019 01-13-2019 Chronic Other screening for suspected conditions (not mental disorders or infectious disease) (1 source) Patient encounter status; Translations: [Encounter for screening mammogram for malignant neoplasm of breast] Episodic Other skin disorders (1 source) Rash and other nonspecific skin eruption; Translations: [Rash and nonspecific skin eruption] Onset: 12-21-2022 Episodic Residual codes; unclassified (1 source) Localized edema; Translations: [Edema of skin] Onset: 11-13-2022 Episodic Substance-related disorders (4 sources) Smoker; Translations: [Nicotine dependence, unspecified, uncomplicated] Onset: 06-07-2018 06-07-2018 Chronic Thyroid disorders (14 sources) Thyroid nodule; Translations: [Nontoxic single thyroid nodule] Onset: 10-24-2009 10-24-2009 Chronic Unclassified (1 source) Transaminitis; Translations: [Transaminitis] Onset: 10-21-2022 Past or Other Problems Problem Classification Problem Date Documented Da te Episodic/Chronic Diabetes or abnormal glucose tolerance complicating ; childbirth; or the puerperium (4 sources) Impaired glucose tolerance in ; Translations: [Abnormal glucose complicating ] Onset: 04-22-2006 04-22-2006 Episodic Esophageal disorders (4 sources) Esophagitis; Translations: [Esophagitis, unspecified] Onset: 10-27-2011 10-27-2011 Episodic Nonmalignant breast conditions (4 sources) Lesion of breast; Translations: [Unspecified benign mammary dysplasia of unspecified breast] Onset: 03-16-2012 03-16-2012 Episodic Other non-traumatic joint disorders (4 sources) Multiple joint pain; Translations: [Pain in unspecified joint] Onset: 04-22-2006 04-22-2006 Episodic Other nutritional; endocrine; and metabolic disorders (4 sources) Abnormal weight gain; Translations: [Abnormal weight gain] Onset: 04-22-2006 04-22-2006 Episodic Results Test Name Value Interpretation Reference Range Facil ity Vital Signs Date Time Vital Sign Value Performing Clinician Tenisha selby 06-01-2021 20:20-0400 Body temperature 98.42 [degF] JORJE LAUREN MD [facility] 06-01-2021 20:20-0400 Diastolic blood pressure 87 mm[Hg] JORJE LAUREN MD [facility] 06-01-2021 20:20-0400 Heart rate 84 /min JORJE LAUREN MD [facility] 06-01-2021 20:20-0400 Mean blood pressure 108 mm[Hg] JOJRE LAUREN MD [facility] 06-01-2021 20:20-0400 Respiratory rate 18 /min JORJE LAUREN MD [facility] 06-01-2021 20:20-0400 Systolic blood pressure 151 mm[Hg] JORJE LAUREN MD [facility] 02-28-2021 01:46-0500 Body temperature 97.88 [degF] JORJE LAUREN MD [facility] 02-28-2021 01:46-0500 Diastolic blood pressure 93 mm[Hg] JORJE LAUREN MD [facility] 02-28-2021 01:46-0500 Heart rate 86 /min JORJE LAUREN MD [facility] 02-28-2021 01:46-0500 Respiratory rate 18 /min JORJE LAUREN MD [facility] 02-28-2021 01:46-0500 Systolic blood pressure 139 mm[Hg] JORJE LAUREN MD [facility] 01-13-2021 19:43-0500 Body temperature 98.24 [degF] JOEL RUIZ DO [facility] 01-13-2021 19:43-0500 Body weight 105.7 kg JOEL RUIZ DO [facility] 01-13-2021 19:43-0500 Diastolic blood pressure 97 mm[Hg] JOEL RUIZ DO [facility] 01-13-2021 19:43-0500 Heart rate 78 /min JOEL RUIZ DO [facility] 01-13-2021 19:43-0500 Respiratory rate 20 /min JOEL RUIZ DO [facility] 01-13-2021 19:43-0500 Systolic blood pressure 154 mm[Hg] JOEL RUIZ DO [facility] Encounters Encounter Date Encounter Type Care Provider Facility Start: 02-02-[address] KADIE DIETZ MD F acility:B Start: 01-14-2023 Telephone encounter Jackie samuels MD Work Phone: Rheumatology Procedures Date Procedure Procedure Detail Performing Clinician Thyroid structure (body structure) JOEL RUIZ DO Plan of Treatment Date Care Activity Detail Author Start: 12-01-2027 HPV Testing HPV Testing [facility] Start: 12-01-2027 Pap Testing Pap Testing [facility] Start: 10-09-2022 Covid-19 Vaccine ( season) Covid-19 Vaccine ( season) [facility] Start: 10-09-2022 Influenza vaccination Influenza Vaccine (#1) [facility] Start: 07-28-2022 HPV TESTING HPV TESTING [facility] Start: 07-28-2022 PAP TESTING PAP TESTING [facility] Start: 2021 Mammography [facility] Start: 10-09-2021 Influenza vaccination INFLUENZA (#1) [facility] Start: 04-23-2021 Covid-19 Vaccine (3 - Pfizer series) Covid-19 Vaccine (3 - Pfizer series) [facility] Start: 02-21-2021 COVID-19 VACCINE (2 - Pfizer series) COVID-19 VACCINE (2 - Pfizer series) [facility] Start: 05-23-2020 ANNUAL PCP TEAM CHRONIC DISEASE VISIT ANNUAL PCP TEAM CHRONIC DISEASE VISIT [facility] Start: 2000 Urine microalbumin profile [facility] Start: 1980 HEPATITIS B (1 of 3 - 3-dose series) HEPATITIS B (1 of 3 - 3-dose series) [facility] Start: 1980 Hepatitis B Vaccine (1 of 3 - 3-dose series) Hepatitis B Vaccine (1 of 3 - 3-dose series) [facility] End: 01-30-2023 Screening mammography bi 2-view breast inc cad YOSEPH SCREENING Radiology Routine Encounter for screening mammogram for breast cancer 1 Occurrences starting 12/31/2021 until 01/30/2023 [facility] Work Phone: Immunizations Immunization Date Immunization Notes Care Provider Fa cility 01-13-2019 influenza, injectabl e, quadrivalent, contains preservative Kadie Dietz MD Work Phone: [facility] 01-13-2019 influenza virus vacc ine, unspecified formulation Us 1 [facility] 01-11-2018 influenza, injectabl e, quadrivalent, contains preservative Kadie Dietz MD Work Phone: [facility] 01-11-2018 pneumococcal polysaccharide vaccine, 23 valent Kadie Dietz MD Work Phone: [facility] Payers Date Payer Category Payer Unknown [id number] 1980 Unknown [id number] Social History Date Type Detail Facility Start: 04-05-2020 Heavy tobacco smoker (finding) [facility]igned At [facility] Start: 2020 End: 12-04-2022 Tobacco smoking status NHIS Ex-smoker [facility] End: 09-08-2020 History of tobacco use Current smoker [facility] End: 09-08-2020 History of tobacco use Cigarette Smoker [facility] Start: 2020 End: 12-04-2022 Tobacco use and exposure Smokeless tobacco non-user [facility] Start: 2020 End: 12-04-2022 Alcohol intake Current drinker of alcohol (finding) [facility] Start: 07-28-2017 Alcohol Comment [facility] Start: 1980 Sex Assigned At Not on file [facility] Start: 2020 End: 11-06-2022 History of Social function [facility] Start: 2020 End: 11-06-2022 Tobacco use panel [facility] Adult Depression Screening Assessment 3 [facility] Functional Status Date Assessment Result Facility 06-01-2021 Functional Status [facility] 06-01-2021 Functional Status [facility] Mental Status Date Assessment Result Facility 06-01-2021 Mental Status [facility] eric [facility] 06-01-2021 Mental Status [facility] Clinical Notes 10-27-2011 to 01-15-2023 Telephone Encounter - Erum Calloway RN - 01/15/2023 2:49 PM ESTTelephone Encounter - Monika Garcia - 01/14/2023 2:10 PM EST Note Date & Type Note Facility 01-15-2023 Miscellaneous Notes Called patient and discussed Dr. 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 Discussed that currently no CTD diagnosis, but he is happy to re-assess in a few months. Patient states understanding. Erum Calloway RN Patient would like to go over recent lab results. [phone] (home) documented in this encounter [facility] 12-04-2022 Note HNO ID: [id number] Author: Jackie Medina MD Service: ? Author Type: Physician Type: Progress Notes Filed: 12/16/2022 5:30 PM Note Text: Rheumatology History AND Physical Patient name: Luz Javier Requesting provider: No att. providers found SUBJECTIVE History of Present Illness: Ms. Luz Javier is a 42 year old female who has a past medical history of bipolar/depression, former smoker, Esophagitis, Headache, Thyroid cancer, constipation. who presents for rheumatologic evaluation. 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 Allergies: She is allergic to voltaren [diclofenac sodium] and vicodin [hydrocodone-acetaminophen]. Current Meds: levothyroxine, cyclobenzaprine, ondansetron orally disintegrating, magnesium oxide, coenzyme q10, niacin-inositol, albuterol hfa, omeprazole, bupropion sr, levothyroxine, mometasone-formoterol, and fluticasone-salmeterol. Family History: family history includes Arthritis in her maternal grandmother and mother; Cancer in her paternal aunt, paternal grandfather, and paternal grandmother; Emphysema in her mother; GI in her mother; Heart in her mother; Hypertension in her mother; Lipids in her mother; MVA in her brother; No Known Problems in her father; Stroke in her mother. Social History: She reports that she quit smoking about 2 years ago. Her smoking use included cigarettes. She has never used smokeless tobacco. She reports current alcohol use. She reports that she does not use drugs. Labs: CBC Latest Ref Rng AND Units 10/05/2022 12/13/2020 12/24/2014 12/08/2012 WBC 3.70 - 11.00 k/uL 8.18 7.76 10.14 9.47 HEMOGLOBIN 11.5 - 15.5 g/dL 10.5(L) 11.0(L) 14.6 13.1 HEMOGLOBIN, RENALDO 11.5 - 15.5 g/dL - - - - HEMATOCRIT 36.0 - 46.0 % 33.6(L) 33.3(L) 43.1 38.9 PLATELETS 150 - 400 k/uL 271 233 217 215 ABS NEUT (ANC) 1.45 - 7.50 k/uL - - 6.64 5.39 ABS NEUT, RENALDO 1.45 - 7.50 k/uL - - - - ABS LYMP, RENALDO 1.00 - 4.00 k/uL - - - - ABS LYMPH 1.00 - 4.00 k/uL - - 2.74 2.94 CMP Latest Ref Rng AND Units 10/05/2022 12/02/2018 12/24/2014 12/27/2012 SODIUM 136 - 144 mmol/L 138 - 138 138 SODIUM, RENALDO 132 - 148 mmol/L - - - - SODIUM, RENALDO 132 - 148 mmol/L - - - - POTASSIUM 3.7 - 5.1 mmol/L 4.2 - 3.9 3.7 POTASSIUM, RENALDO 3.5 - 5.0 mmol/L - - - - CHLORIDE 97 - 105 mmol/L 102 - 98 103 CHLORIDE, RENALDO 98 - 110 mmol/L - - - - CO2 22 - 30 mmol/L 23 - 24 21(L) CO2, RENALDO 23.0 - 32.0 mmol/L - - - - GLUCOSE 74 - 99 mg/dL 130(H) - 98 114(H) GLUCOSE (U), RENALDO NEGAT mg/dL - - - - GLUCOSE, RENALDO 65 - 100 mg/dL - - - - BUN 7 - 21 mg/dL 10 - 13 13 BUN, RENALDO 10 - 25 mg/dL - - - - CREATININE 0.58 - 0.96 mg/dL 0.77 - 0.89 0.82 CREATININE, RENALDO 0.7 - 1.4 mg/dL - - - - CALCIUM, RENALDO 8.5 - 10.5 mg/dL - - - - CALCIUM, TOTAL 8.5 - 10.2 mg/dL 9.6 - 8.8 9.0 AST 13 - 35 U/L 108(H) 27 22 23 AST, RENALDO 7 - 40 U/L - - - - ALT 7 - 38 U/L 52(H) 15 12 23 ALT, RENALDO 0 - 45 U/L - - - - ALKALINE PHOSPHATASE 34 - 123 U/L 69 - 64 68 CRP Latest Ref Rng AND Units 10/15/2022 CRP <0.9 mg/dL 2.8(H) RF and CCP Latest Ref Rng AND Units 10/15/2022 RHEUMATOID FACTOR <16 IU/mL <10 Hepatitis Screen Latest Ref Rng AND Units 10/21/2022 01/13/2019 05/18/2011 09/05/2010 HEPBCOTOL Negative Negative Negative - - HEPSABQ - Negative Negative - - HEPCABEIA Negative Negative Negative - - HBSAG Negative Negative - Negative Negative HBSAGR Negative - Negative - - TB Screen Latest Ref Rng AND Units 04/28/2018 04/20/2018 TBTEST 0 x 0 - 10 x 10 mm 0 x 0mm 0 x 0mm Antibodies Latest Ref Rng AND Units 10/15/2022 12/13/2020 HETAL Negative Positive(A) - HETAL TITER - 1:80 - HETAL PATTERN - Homogeneous nucleolar - DNA ANTIBODY W/CONFIRMATION <30 IU/mL <12 - ANTI-SM <1.0 AI <0.2 - SM ANTIBODY Negative Negative - RIBOSOMAL R[employer]ER AB <1.0 AI <0.2 - RIBOSOMAL ROOF [employer]ER QUAL Negative Negative - CHROMATIN AB <1.0 AI <0.2 - CHROMATIN AB QUAL Negative Negative - SSA ANTIBODY QUAL Negative Negative - ANTI-SSA <1.0 AI <0.2 - ANTI-SSB <1.0 AI <0.2 - ROOF [employer]OLTING [employer]ER ANTIBODY QUAL Negative Positive(A) - SCL-70 AB QUAL Negative Negative - SCL-70 ABS, EIA <1.0 AI <0.2 - CENTROMERE AB <1.0 AI <0.2 - CENTROMERE AB QUAL Negative Negative - KAMRYN-1 ANTIBODY, IGG <1.0 AI <0.2 - KAMRYN 1 ANTIBODY QUAL Negative Negative - PT SEC 9.7 - 13.0 sec - 9.8 PT INR 0.9 - 1.3 - <0.9(L) Urinalysis Latest Ref Rng AND Units 08/18/2018 10/22/2014 12/09/2012 07/21/2012 PROTEIN, URINE Neg mg/dL - NEG neg NEGATIVE PROTEIN (U), RENALDO NEGAT mg/dL - - - - PROTEIN UA (POCT) Negative mg/dL >=300(A) - - - RBC, URINE 0.0 - 5.0 /hpf - - - 1.0 RBC, URINE, RENALDO (more content not included)... [facility] 10-21-2022 Note HNO ID: [id number] Author: Purnima Calderon RT(R) Service: Radiology Author Type: Technologist Type: Progress Notes Filed: 10/21/2022 11:55 AM Note Text: Radiology Service Progress Note PATIENT NAME: Luz Javier DATE OF SERVICE: October 21, 2022 TIME: 11:44 AM PATIENT IDENTITY VERIFICATION COMPLETED USING TWO (2) IDENTIFIERS: Name and Date of confirmed by patient verbally. FALL SCREENING: Has the patient had 2 falls in the last year or 1 fall with injury or currently using an Ambulatory Assistive Device (Walker, Cane, Wheelchair, Crutches, etc.)? No PATIENT GENDER DATA: Female. status: : No status: NO. PATIENT RELEVANT IMPLANT DATA REVIEWED: Yes RADIOLOGY DEPARTMENT: General X-ray: Exam(s) Completed: Chest X-Ray PERIPHERAL IV DATA: Not applicable SIGNED BY: RT Kayy(R) October 21, 2022 11:44 AM [facility] 06-02-2021 Hospital Discharg e instructions Patient Education 06/01/2021 22:11:37 Foot Sprain Foot Sprain A sprain is a stretching or tearing of the ligaments that hold a joint together. There are usually no broken bones. Sprains generally take from 3 to 6 weeks to heal. A sprain may be treated with a splint, walking cast, or special boot. Mild sprains may not need any additional support. Home care The following guidelines will help you care for your injury at home: Keep your leg elevated when sitting or lying down. This is very important during the first 48 hours to reduce swelling. Stay off the injured foot as much as possible until you can walk on it without pain. If needed, you may use crutches during the first week for this purpose. Crutches can be rented at many pharmacies or surgical/orthopedic supply stores. You may be given a cast shoe to wear to prevent movement in your foot. If not, you can use a sandal or any shoe that does not put pressure on the injured area until the swelling and pain go away. If using a sandal, be careful not to hit your foot against anything, since another injury could make the sprain worse. Apply an ice pack over the injured area for 15 to 20 minutes every 3 to 6 hours. You should do this for the first 24 to 48 hours. You can make an ice pack by filling a plastic bag that seals at the top with ice cubes and then wrapping it with a thin towel. Continue to use ice packs for relief of pain and swelling as needed. As the ice melts, try not to get the wrap, splint, or cast wet. After 48 hours, apply heat from a warm shower or bath for 20 minutes several times daily. Alternating ice and heat may also be helpful. You may use [id number] pain medicine to control pain, unless another medicine was prescribed. If you have chronic liver or kidney disease or ever had a stomach ulcer or gastrointestinal bleeding, talk with your healthcare provider before using these medicines. If you were given a splint or cast, keep it dry. Bathe with your splint or cast well out of the water, protected with 2 large plastic bags, sealed with tape or rubber-bands at the top end. If a fiberglass splint or cast gets wet, you can dry it with a engineering department chair on cool setting. You may return to sports after healing, when you can run without pain. Follow-up care Follow up with your healthcare provider as directed. Sometimes fractures don t show up on the first X-ray. Bruises and sprains can sometimes hurt as much as a fracture. These injuries can take time to heal completely. If your symptoms don t improve or they get worse, talk with your healthcare provider. You may need a repeat X-ray or other tests. When to seek medical advice Call your healthcare provider right away if any of these occur: The plaster cast or splint gets wet or soft The fiberglass cast or splint gets wet and does not dry for 24 hours Pain or swelling increases, or redness appears A bad odor comes from within the cast Fever of 100.4 F (38 C) or above lasting for 24 to 48 hours, or as advised Chills Toes on the injured foot become cold, blue, numb, or tingly [id number] [employer]. [address] [place] [address]. All rights reserved. This information is not intended as a substitute for professional medical care. Always follow your healthcare professional's instructions. Follow Up Care 06/01/2021 20:16:20 With:KADIE IDETZ MD Address: [address] [place] [phone]- When:2-4 days [facility] 02-28-2021 Hospital Discharg e instructions Patient Education 02/28/2021 02:12:13 Headache, Unspecified Headache, Unspecified A number of things can cause headaches. The cause of your headache isn t clear. But it doesn t seem to be a sign of any serious illness. Headache affects almost everyone at some time. It is the most common reason people miss days from work or school. You could have a tension headache or a migraine headache. Stress can cause a tension headache. This can happen if you tense the muscles of your shoulders, neck, and scalp without knowing it. If this stress lasts long enough, you may develop a tension headache. It is not clear why migraines occur, but certain things called triggers can raise the risk of having a migraine attack. Migraine triggers may include emotional stress or depression, or by hormone changes during the menstrual cycle. Other triggers include control pills and other medicines, alcohol or caffeine, foods with tyramine (such as aged cheese, wine), eyestrain, weather changes, missed meals, and lack of sleep or oversleeping. Other causes of headache include: Viral illness with high fever Head injury with concussion Sinus, ear, or throat infection Dental pain and jaw joint (TMJ) pain More serious but less common causes of headache include stroke, brain hemorrhage, brain tumor, meningitis, and encephalitis. Home care Follow these tips when taking care of yourself at home: Don t drive yourself home if you were given pain medicine for your headache. Instead, have someone else drive you home. Try to sleep when you get home. You should feel much better when you wake up. Apply heat to the back of your neck to ease a neck muscle spasm. Take care of a migraine headache by putting an ice pack on your forehead or at the base of your skull. If you have nausea or vomiting, eat a light diet until your headache eases. If you have a migraine headache, use sunglasses when in the daylight or around bright indoor lighting until your symptoms get better. Bright glaring light can make this type of headache worse. Follow-up care Follow up with your healthcare provider, or as advised. Talk with your provider if you have frequent headaches. He or she can help figure out a treatment plan. By knowing the earliest signs of headache, and starting treatment right away, you may be able to stop the pain yourself. When to seek medical advice Call your healthcare provider right away if any of these occur: Your head pain suddenly gets worse after sexual intercourse or strenuous activity Your head pain doesn t get better within 24 hours You aren t able to keep liquids down (repeated vomiting) Fever of 100.4 F (38 C) or higher, or as directed by your healthcare provider Stiff neck Extreme drowsiness, confusion, or fainting Dizziness or dizziness with spinning sensation (vertigo) Weakness in an arm or leg or one side of your face You have trouble talking or seeing [phone] [employer]. [address] [place] [address], [place] [address]. All rights reserved. This information is not intended as a substitute for professional medical care. Always follow your healthcare professional's instructions. Follow Up Care 02/28/2021 01:40:26 With:KADIE DIETZ MD Address: [address] [place] [address]- When:2-4 days [facility] 01-13-2021 Hospital Discharg e instructions Patient Education 01/13/2021 21:13:20 External Ear Infection (Adult) External Ear Infection (Adult) External otitis (also called swimmer s ear ) is an infection in the ear canal. It is often caused by bacteria or fungus. It can occur a few days after water gets trapped in the ear canal (from swimming or bathing). It can also occur after cleaning too deeply in the ear canal with a cotton swab or other object. Sometimes, hair care products get into the ear canal and cause this problem. Symptoms can include pain, fever, itching, redness, drainage, or swelling of the ear canal. Temporary hearing loss may also occur. Home care Do not try to clean the ear canal. This can push pus and bacteria deeper into the canal. Use prescribed ear drops as directed. These help reduce swelling and fight the infection. If an ear wick was placed in the ear canal, apply drops right onto the end of the wick. The wick will draw the medicine into the ear canal even if it is swollen closed. A cotton ball may be loosely placed in the outer ear to absorb any drainage. You may use acetaminophen or ibuprofen to control pain, unless another medicine was prescribed. Note: If you have chronic liver or kidney disease or ever had a stomach ulcer or GI bleeding, talk to your healthcare provider before taking any of these medicines. Do not allow water to get into your ear when bathing. Also, don't swim until the infection has cleared. Prevention Keep your ears dry. This helps lower the risk of infection. Dry your ears with a towel or engineering department chair after getting wet. Also, use ear plugs when swimming. Do not stick any objects in the ear to remove wax. If you feel water trapped in your ear, use ear drops right away. You can get these drops over the counter at most drugstores. They work by removing water from the ear canal. Follow-up care Follow up with your healthcare provider in 1 week, or as advised. When to seek medical advice Call your healthcare provider right away if any of these occur: Ear pain becomes worse or doesn t improve after 3 days of treatment Redness or swelling of the outer ear occurs or gets worse Headache Painful or stiff neck Drowsiness or confusion Fever of 100.4 F (38 C) or higher, or as directed by your healthcare provider Seizure [phone] [employer]. [address] [place] [address]. All rights reserved. This information is not intended as a substitute for professional medical care. Always follow your healthcare professional's instructions. Follow Up Care 01/13/2021 19:42:48 With:Your oncologist as discussed Address:Unknown When:2-4 days With:Follow up with primary care provider Address:Unknown When:2-4 days [facility] 12-24-2020 Note HNO ID: [id number] Author: Kayla Houser RN Service: Cardiac Surgery Author Type: Registered Nurse Type: Nursing Progress Note Filed: 12/24/2020 9:40 AM Note Text: IV removed, site CDI. [facility] 12-06-2020 Note HNO ID: [id number] Author: Deanna Salinas RN Service: ? Author Type: Registered Nurse Type: Progress Notes Filed: 12/06/2020 1:30 PM Note Text: Cbc [facility] documented as of this encounter (statuses as of 01/05/2022) [facility] History of Past illness Narrative* Problem Noted Date Diagnosed Date Resolved Date Acute gastritis without mention of hemorrhage 10/27/19 12 06/07/2018 Thyroid carcinoma 02/12/2010 06/07/2018 NO SHOW 01/13/2010 02/26/2010 Other joint derangement, not elsewhere classified, lower leg 10/28/2009 02/26/2010 Elevated TSH 10/24/2009 05/06/2017 documented as of this encounter (statuses as of 11/07/2022) [facility] History of Past illness Narrative* Problem Noted Date Diagnosed Date Resolved Date Acute gastritis without mention of hemorrhage 10/27/19 12 06/07/2018 Thyroid carcinoma 02/12/2010 06/07/2018 NO SHOW 01/13/2010 02/26/2010 Other joint derangement, not elsewhere classified, lower leg 10/28/2009 02/26/2010 Elevated TSH 10/24/2009 05/06/2017 documented as of this encounter (statuses as of 01/15/2023) [facility] No data available for this section [facility] Evaluation note* Diagnosis Encounter for screening mammogram for breast cancer [facility] No data available for this section [facility] Reason for referral (narrative)* Diagnostic Procedure Only (Routine) - Pending Review Specialty Diagnoses / Procedures Referred By Raissa stevens Referred To Contact [facility] Diagnoses Encounter for screening mammogram for breast cancer Procedures YOSEPH SCREENING SCREENING MAMMOGRAPHY BI 2-VIEW BREAST INC CAD Kadie Dietz MD [address] [place] [address] [facility] [address] [place] [address] Referral ID Status Reason Start Date Expiration Date Visits Requested Visits Authorized [id number] Pending Review Auto-Generat ed Referral 2 01/30/2023 1 1 [facility] Summary Purpose Family History No Family History Records FoundNo Family History Records FoundNo Family History Records FoundNo Family History Records FoundNo Family History Records Found Advance Directives No Advanced Directives Records FoundNo Advanced Directives Records FoundNo Advanced Directives Records FoundNo Advanced Directives Records FoundNo Advanced Directives Records Found Additional Source Comments INFORMATION SOURCE (unrecogn ized section and content) DATE CREATED AUTHOR AUTHOR'S ORGANIZ ATION 12/22/2020 [facility] DATE CREATED AUTHOR AUTHOR'S ORGANIZ ATION 12/31/2020 [facility] DATE CREATED AUTHOR AUTHOR'S ORGANIZ ATION 01/18/2023 [facility] DATE CREATED AUTHOR AUTHOR'S ORGANIZ ATION 02/04/2023 [facility] ([place]) Care Team (unrecognized sect ion and content) Renewals Specialist Relationship Specialty Start Date End Date Belinda Brisenojazmyne Cabrera CNP [address] [facility], [place] [address] Referring Internal Medicine 11/06/20 Pola Nuñez NP [address] [place], [place] [address] Referring Family Medicine 11/04/22 Renewals Specialist Relationship Specialty Start Date End Date BrisenoAlissa CNP [address] [facility], [place] [address] Referring Internal Medicine 11/06/20 Pola Nuñez NP [address] [place] [id number] Referring Family Medicine 11/04/22 Source Comments (unrecognize d section and content) In the event this informatio n is protected by the Federal Confidentiality of Alcohol and Drug Abuse Patient Records regulations: The Federal rules restrict any use of the information to criminally investigate or prosecute any alcohol or drug abuse patient.[facility] the event this information is protected by the Federal Confidentiality of Alcohol and Drug Abuse Patient Records regulations: The Federal rules restrict any use of the information to criminally investigate or prosecute any alcohol or drug abuse patient.[facility] the event this information is protected by the Federal Confidentiality of Alcohol and Drug Abuse Patient Records regulations: The Federal rules restrict any use of the information to criminally investigate or prosecute any alcohol or drug abuse patient.[facility] System[facility] the event this information is protected by the Federal Confidentiality of Alcohol and Drug Abuse Patient Records regulations: The Federal rules restrict any use of the information to criminally investigate or prosecute any alcohol or drug abuse patient.[facility] Reason for Visit (unrecogniz ed section and content) Referral ID Status Reason Start Date Expiration Date Visits Requested Visits Authorized [id number] Authorized Financial Clearance Required - Self Pay Patient Cleared - Qualified HCAP/501/FA 10/20/2022 01/18/2023 99 99 Reason Comments Outside Labs Results FOR RECORDS PERTAINING TO PATIENTS WHO ARE OR HAVE BEEN ENROLLED IN A CHEMICAL DEPENDENCY/SUBSTANCEABUSE PROGRAM, SOME INFORMATION MAY BE OMITTED. This clinical summary was aggregated from multiple sources. Caution should be exercised in using it in the provision of clinical care. This summary normalizes information from multiple sources, and as a consequence, information in this document may materially change the coding, format and clinical context of patient data. In addition, data may be omitted in some cases. CLINICAL DECISIONS SHOULD BE BASED ON THE PRIMARY CLINICAL RECORDS. [employer] [facility]. provides no warranty or guarantee of the accuracy or completeness of information in this document.
[2023-02-25 13:46] LABS: Color, Urine Straw (Yellow); Glucose, Dipstick Normal (Normal); Ketone-Dipstick Negative (Negative); Leukocyte Esterase-Dipstick 500 /ul (Negative); Nitrite-Dipstick Negative (Negative); Occult Blood-Urine 250 /ul (Negative); Protein-Dipstick 100 mg/dl (Negative); Urine Bilirubin Dipstick Negative (Negative); Urine Clarity Cloudy (Clear); Urine Urobilinogen Normal (Normal)
[2023-02-25 14:03] LABS: Bacteria 1+ /hpf (None Seen); Red Blood Cells-Urine 5-10 SEEN /hpf (0-5); White Blood Cells >100 SEEN /hpf (0-5)
[2023-02-25] MEDS: Ketorolac 30 MG/ML Syringe IV (14:55)
[2023-02-25] MEDS: HYDROmorphone 1 MG/ML Syringe 0.5 MG IV (14:56)
[2023-02-25] MEDS: Ceftriaxone 1 GM/50 ML BAG IV (14:57)
[2023-02-25 16:07] VITALS: BP 110/67; PULSE 72; RESP 16; O2SAT 100
== END 2023-02-25 16:07 | disposition home or self-care (01) ==
PROVIDERS: Emergency Provider Emergency Medicine; Visit Provider Emergency Medicine
DX: N39.0 Urinary tract infection, site not specified (principal); R11.0 Nausea; Z87.891 Personal history of nicotine dependence; R10.9 Unspecified abdominal pain; E03.9 Hypothyroidism, unspecified; Z79.899 Other long term (current) drug therapy; Z90.49 Acquired absence of other specified parts of digestive tract
CPT/HCPCS: 74176; 80048; 81001; 85025; 87086; 87088; 87186; 96361; 96365; 96375; 99284; A4216; J2405

== ENCOUNTER 2023-07-07 07:00 | Emergency (ER) | payer OTHER, SELFPAY ==
[2023-07-07 07:00] VITALS: BP 148/108; PULSE 99; RESP 12; TEMP 36.1; O2SAT 97; BMI 40.5
--- NOTE | 2023-07-07 07:39 | EDS_ITS ---
HPI History of Present Illness Chief Complaint: Abd Pain Informant: patient Onset/Context/Timing Onset: Yesterday Context: Sudden Onset Timing: Continuous Quality: Sharp, aching Location: Throat, head Worsened by: Nothing Relieved by: Nothing Narrative Narrative: Patient presents with headache, sore throat, nausea, vomiting, and diarrhea that began yesterday morning. Patient states it began rather suddenly. Patient states he has been constant since yesterday. Patient states her throat pain is sharp. Patient states her head feels like it is aching and sharp in the occipital area. Patient states nothing makes her symptoms better and nothing makes them worse. Patient admits to a fever of 103.7 at home. Patient denies any hematemesis or coffee-ground emesis. Patient denies any melena or hematochezia. Patient states her headache is going into her neck. PFSH [facility] Medical History Hemorrhoids Acid reflux Diarrhea Vomiting Nausea RUQ abdominal pain Epigastric pain Asthma Thyroid disease Fatigue Migraine Tobacco dependence syndrome Hypothyroidism Depression Constipation Home Medications ?Medication ?Instructions ?Recorded ?Last Taken ?Type hydrocortisone 1 % topical ointment 1 applic topical BID 2 weeks 10/05/20 Unknown Rx #28.35 grams levothyroxine 100 mcg tablet 100 mcg PO DAILY #30 tabs 10/05/20 Unknown Rx (Synthroid) prednisone 10 mg tablet 10 mg PO DAILY #48 TABLETS 06/17/22 Unknown Rx ciprofloxacin HCl 500 mg tablet 500 mg PO BID #14 TABLETS 02/25/23 Unknown Rx oxycodone-acetaminophen 5 mg-325 1 tab PO Q6H PRN PRN Pain 3 days 02/25/23 Unknown Rx mg tablet #12 TABLETS amoxicillin 500 mg tablet 500 mg PO TID #30 tabs 07/07/23 Unknown Rx Allergy/AdvReac Type Severity Reaction Status Date / Time diclofenac sodium (From Allergy Unknown Verified 07/07/23 07:05 Voltaren) hydrocodone bitartrate (From AdvReac Vomiting Verified 07/07/23 07:05 Vicodin) Family History (Updated 10/04/20 @ 16:35 by Suze Nuñez GEOLOGICAL SCOUT, GEOLOGICAL SCOUT-C) Mother Asthma Arthritis Heart disease Hypertension Father No known health problems Surgical History Hx of cholecystectomy Hx of tubal ligation Hx of partial thyroidectomy Social History Smoking Status: Former smoker alcohol intake: current alcohol intake frequency: a few times a month substance use type: does not use caffeine: No what type of physical activity do you participate in: none ROS ROS ED Constitutional Constitutional ED: Reports fever(s); Denies chills Eyes Eyes: Reports blurry vision; Denies change in vision ENT ENT ED: Reports sore throat; Denies rhinorrhea Cardiovascular Cardiovascular: Denies chest pain or palpitations Respiratory/Chest Respiratory/Chest: Denies cough or dyspnea Gastrointestinal Gastrointestinal: Reports diarrhea, nausea and vomiting; Denies abdominal pain or melena Genitourinary Genitourinary ED: Denies dysuria or hematuria Musculoskeletal Musculoskeletal: Reports neck pain; Denies back pain Integumentary Denies abscess or rash Neurologic Neurologic: Reports headache(s); Denies weakness Allergic/Immunologic Allergic/Immunologic ED: Denies mouth swelling or urticaria EXAM Physical Exam Const Vital Signs: 07/07/23 07:00 07/07/23 09:00 Temperature 97.0 F L Temperature Source Temporal Pulse Rate 99 81 Respiratory Rate 12 20 H Blood Pressure 148/108 H 147/99 H Blood Pressure Mean 121 115 Pulse Ox 97 96 Oxygen Delivery Method Room Air Positive well nourished and well developed General Appearance ED: well developed and NAD HEENT Reports moist mucous membranes HEENT Narrative: Oropharynx is erythematous. There are no exudates noted. Neck supple and no JVD Resp normal respiratory effort and clear to auscultation bilaterally Cardio regular rate and regular rhythm GI non-tender and non-distended Palpation: soft Extremity normal to inspection General Extremety ED: Negative for edema General Extremity: Negative for edema Neuro oriented x3, CN's II-XII intact bilaterally and no sensory deficits noted Sensorium / Orientation: alert Motor Exam: strength 5/5 throughout Psych mental status grossly normal MDM MDM MDM Narrative Medical decision making narrative: Differential diagnosis includes strep pharyngitis, viral pharyngitis, pneumonia, migraine headache, gastroenteritis, dehydration, and electrolyte abnormality. CBC will be obtained to assess for leukocytosis and anemia. Basic metabolic profile will be obtained to assess for electrolyte abnormality and renal function. Urinalysis will be obtained to assess for urinary tract infection. COVID-19, influenza, and RSV PCR will be obtained to assess for viral illness. Rapid strep will be obtained to assess for strep pharyngitis. Lab Data Attestation: I reviewed the patient's lab results. Lab results narrative: CBC was reviewed. There is a mild leukocytosis of 11.8. The remainder is within normal limits. Basic metabolic profile was reviewed and was within normal limits. Serum hCG was reviewed and was negative. Urinalysis was reviewed. There is no evidence of urinary tract infection or hematuria. Rapid strep was reviewed and was positive. COVID-19 PCR was reviewed and was negative. Influenza PCR was reviewed and was negative for influenza A and influenza B. RSV PCR was reviewed and was negative. Labs: Laboratory Results - last 24 hr 07/07/23 07/07/23 08:03 08:10 WBC 11.8 H RBC 4.13 L Hgb 12.9 Hct 38.6 MCV 93.5 MCH 31.2 MCHC 33.4 RDW Std Deviation 45.9 H RDW Coeff of Brennan 13.4 Plt Count 213 MPV 10.9 Immature Gran % (Auto) 0.800 Neut % (Auto) 73.4 H Lymph % (Auto) 19.8 Hendry % (Auto) 4.8 Eos % (Auto) 0.9 Baso % (Auto) 0.3 Absolute Neuts (auto) 8.7 H Absolute Lymphs (auto) 2.33 Nucleated RBC % 0 Sodium 135 L Potassium 3.7 Chloride 105 Carbon Dioxide 24.0 Anion Gap 6 BUN 3 L Creatinine 0.81 Estim Creat Clear Calc 121.09 Est GFR (MDRD) Af Amer 100 Est GFR (MDRD) Non-Af 82 BUN/Creatinine Ratio 3.7 L Glucose 118 H Calcium 8.6 Serum , Qual NEGATIVE Urine Color Yellow Urine Clarity Sl. Cloudy Urine pH 7.0 Ur Specific [place] 1.005 Urine Protein Negative Urine Glucose (UA) Normal Urine Ketones Negative Urine Occult Blood Negative Urine Nitrite Negative Urine Bilirubin Negative Urine Urobilinogen 1 H Ur Leukocyte Esterase Negative Urine RBC 0 SEEN Urine WBC 0 SEEN Ur Squamous Epith Cells 0-5 SEEN Urine Bacteria 0 SEEN Urine Mucus 0 SEEN Radiography Diagnostic Testing: Clinical Impression(s) from Imaging Studies Chest X-Ray 07/07/23 08:15 IMPRESSION: No acute cardiopulmonary process identified. Electronically Signed: Gloria Coburn MD at 8:33 EDT , PA and lateral chest x-ray was obtained. There are 2 views. On my independent interpretation, lung martinez are clear. There is normal cardiac silhouette. Bony thorax is normal. There is no acute process noted. Radiologist also interpreted the x-ray and agrees. Treatment and Re-Evaluation :: Patient was given IV fluids and Zofran. Patient was given a dose of ibuprofen. Patient was feeling better on reevaluation. Patient was advised of her findings. Patient was given a prescription for amoxicillin. Patient was given her first dose here. Patient was instructed to continue ibuprofen or Tylenol as needed for any fevers or aches. Patient was instructed to follow-up with her primary care physician in 5 to 7 days. Patient understood and was agreeable with the plan. All questions were answered. Discharge Plan Triage Chief Complaint: Abd Pain ED Provider: Brett Chandler Dx/Rx/DC Orders Clinical Impression: Acute streptococcal pharyngitis, Nicotine dependence Instructions: ED Pharyngitis, Strep (Confirmed) Prescriptions: New amoxicillin 500 mg tablet 500 mg PO TID Qty: 30 0RF Discontinued amoxicillin-pot clavulanate [Augmentin] 875-125 mg tablet 1 tab PO BID Qty: 14 0RF No Action levothyroxine [Synthroid] 100 mcg tablet 100 mcg PO DAILY Qty: 30 0RF hydrocortisone 1 % ointment 1 applic topical BID 14 Days Qty: 28.35 0RF Rx Instructions: Apply to left forearm twice daily for 2 weeks. prednisone 10 mg tablet 10 mg PO DAILY Qty: 48 0RF Rx Instructions: 6 po qd x 3 days, 4 po qd x 3 days, 2 po qd x 3 days, 1 po qd x 3 days ciprofloxacin HCl [ciprofloxacin HCl] 500 mg tablet 500 mg PO BID Qty: 14 0RF oxycodone-acetaminophen [oxycodone-acetaminophen] 5-325 mg tablet 1 tab PO Q6H PRN PRN (Reason: Pain) 3 Days Qty: 12 0RF Stand Alone Forms: ED Work / School Excuse Primary Care Provider: Care Physician,No Primary Referrals: Evangelista Sam MD [Med Staff - Windows Migration Technician] - 5-7 Days Care Physician,No Primary [Primary Care Provider] - Print Language: Hebrew Disposition Disposition: Home, Self Care
[2023-07-07] MEDS: 0.9% Normal Saline (1000mL) 1,000 ML 1000 ML IV (08:04)
[2023-07-07] MEDS: Ondansetron 4 MG/2 ML Vial IV (08:05)
--- NOTE | 2023-07-07 08:15 | RAD_ITS ---
HISTORY: Cough. TECHNIQUE: XR Chest 2 Views. COMPARISON: 10/04/2020. FINDINGS: CARDIOMEDIASTINAL BORDERS: Cardiac silhouette within normal limits in size. Mediastinal contour unremarkable. LUNGS: Radiographically clear. PLEURA: No pleural effusion or pneumothorax seen. OSSEOUS STRUCTURES: Unremarkable. RAD/Chest PA and Lateral IMPRESSION: No acute cardiopulmonary process identified. Electronically Signed: Gloria Coburn MD at 8:33 EDT ,
[2023-07-07 08:19] LABS: Bacteria 0 SEEN /hpf (None Seen); Mucous, Urine 0 SEEN /hpf (<or=2+); Red Blood Cells-Urine 0 SEEN /hpf (0-5); White Blood Cells 0 SEEN /hpf (0-5)
[2023-07-07 08:20] LABS: Color, Urine Yellow (Yellow); Glucose, Dipstick Normal (Normal); Ketone-Dipstick Negative (Negative); Leukocyte Esterase-Dipstick Negative /ul (Negative); Nitrite-Dipstick Negative (Negative); Occult Blood-Urine Negative /ul (Negative); Protein-Dipstick Negative (Negative); Specific Gravity, Urine 1.005 (1.002-1.030); Urine Bilirubin Dipstick Negative (Negative); Urine Clarity Sl. Cloudy (Clear); Urine Urobilinogen 1 mg/dl (Normal)
[2023-07-07 08:25] LABS: Absolute Lymphocyte Count 2.33 X10^3/uL (0.83-4.51); Absolute Neutrophil Count 8.7 X10^3/uL (2.0-7.7); Basophil# 0.03 X10^3/uL; Basophil% 0.3 % (0-1); Eosinophil# 0.11 X10^3/uL; Eosinophils% 0.9 % (0-5); Hematocrit 38.6 % (37-47); Hemoglobin 12.9 g/dL (12.0-15.0); Lymphocyte # 2.33 X10^3/ul (0.83-4.51); Lymphocyte % 19.8 % (19-41); Mean Corp Hgb Conc 33.4 g/dL (32-36); Mean Corpuscular Hgb 31.2 pg (27.0-32.0); Mean Corpuscular Volume 93.5 fL (81-99); Mean Platelet Vol. 10.9 fl (6.2-12.0); Monocyte# 0.56 X10^3/uL; Monocyte% 4.8 % (0-10); NRBC Flagged by Analyzer 0 % (0-5); Neutrophil # 8.66 X10^3/uL (2.7-7.7); Neutrophil % 73.4 % (47-70); Platelet Count 213 K/mm3 (150-450); RBC Distribution Width CV 13.4 % (11.6-14.6); RBC Distribution Width SD 45.9 fl (35.1-43.9); Red Blood Count 4.13 M/mm3 (4.2-5.4); White Blood Count 11.8 K/mm3 (4.4-11.0)
[2023-07-07 08:27] LABS: Internal QC Validated? YES +Cl - CLEAR BKGD; Pregnancy, Serum, hCG Quali. NEGATIVE Negative
[2023-07-07 08:31] LABS: Anion Gap 6 (5-15); BUN 3 mg/dL (7-18); BUN/Creat Ratio 3.7 RATIO (10-20); Calcium,Total 8.6 mg/dL (8.5-10.1); Chloride 105 mmol/L (98-107); Creatinine, Serum 0.81 mg/dL (0.55-1.02); EST Glomerular Filtration Rate 82 mL/min (>60); Est Glom Filt Rate - Afr Amer 100 mL/min (>60); Estimated Creatinine Clearance 121.09 ml/min; Glucose 118 mg/dL (74-106); Potassium 3.7 mmol/L (3.5-5.1); Sodium Level 135 mmol/L (136-145)
[2023-07-07 08:37] LABS: Squamous Epithelial Cells - UA 0-5 SEEN /hpf (5-10)
[2023-07-07 09:00] VITALS: BP 147/99; PULSE 81; RESP 20; O2SAT 96
[2023-07-07] MEDS: Ibuprofen 600 MG Tablet PO (09:00)
[2023-07-07] MEDS: AMOXICILLIN 500 MG CAPSULE PO (10:07)
[2023-07-07 10:09] VITALS: BP 139/92; PULSE 75; RESP 17; TEMP 36.7; O2SAT 92
== END 2023-07-07 10:11 | disposition home or self-care (01) ==
PROVIDERS: Emergency Provider Emergency Medicine; Visit Provider Emergency Medicine
DX: J02.0 Streptococcal pharyngitis (principal); R10.9 Unspecified abdominal pain; J45.909 Unspecified asthma, uncomplicated; Z79.899 Other long term (current) drug therapy; Z87.891 Personal history of nicotine dependence
CPT/HCPCS: 71046; 80048; 81001; 84703; 85025; 87631; 87651; 96361; 96374; 99283; J7030; A4216; J2405

== ENCOUNTER 2023-09-24 08:52 | Observation (INO) | payer SELFPAY ==
[2023-09-24] VITALS (16 sets, daily range): BP systolic 117–149; BP diastolic 69–96; PULSE 80–104; RESP 14–20; TEMP 36.6–36.9; O2SAT 98–100; BMI 40.4; BMI 40.3
--- NOTE | 2023-09-24 09:10 | EKG12_ITS ---
Test Reason : NUMBNESS Blood Pressure : / mmHG Vent. Rate : 097 BPM Atrial Rate : 097 BPM P-R Int : 134 ms QRS Dur : 080 ms QT Int : 358 ms P-R-T Axes : 033 049 026 degrees QTc Int : 454 ms Normal sinus rhythm Normal ECG Confirmed by Donovan Whitehead ([id number]), film and video editor CATHI HINOJOSA ([id number]) on 09/27/2023 9:19:01 AM Referred By: Confirmed By:Donovan Whitehead
--- NOTE | 2023-09-24 09:10 | RAD_ITS ---
STUDY: X-RAY CHEST REASON FOR EXAM: Female, 42 years old. Neuro deficit, acute, stroke suspected TECHNIQUE: Single AP portable view of the chest. COMPARISON: July 07, 2023 FINDINGS: The lungs are clear and expanded. There is no demonstrated pleural abnormality. Normal size heart. Normal mediastinum and ramses. Normal visualized pulmonary arteries. Normal visualized aortic arch and descending thoracic aorta. Normal visualized thoracic spine. Normal visualized ribs, clavicles, and shoulders. There is no demonstrated abnormality of the visualized soft tissue structures of the upper abdomen. RAD/Chest 1 View IMPRESSION: Normal x-ray examination of the chest. Electronically Signed: Rachid Terry MD at 11:02 EDT ,
--- NOTE | 2023-09-24 09:11 | CT_ITS ---
STUDY: CTA HEAD AND NECK WITH CONTRAST REASON FOR EXAM: Female, 42 years old. Neuro deficit RADIATION DOSAGE (If Supplied By Facility): CTDIvol = ( 27.41 ) mGy, DLP = ( 1548.76 ) mGycm TECHNIQUE: CT angiography was performed with a multi-detector CT scanner. Data acquisition was obtained from the skull base through the vertex following intravenous administration of IV 100mL [id number]-370. MIP images were reconstructed from the axial data set. Post-processing of the angiographic images was performed, with multiplanar reformation and 3D reconstruction. Individualized dose optimization techniques were used for this CT. COMPARISON: No relevant priors. FINDINGS: Normal bilateral petrous carotid arteries. Normal right cavernous carotid artery with a normal supraclinoid bifurcation. Normal left cavernous carotid artery with a normal supraclinoid bifurcation. Normal right A1 segments of the anterior cerebral artery. Normal left A1 segments of the anterior cerebral artery. Normal intact anterior communicating artery (ACOM). Normal bilateral A2 segments of the anterior cerebral arteries. Normal right M1 and M2 segments of the middle cerebral arteries, with a normal M1 bifurcation. Normal left M1 and M2 segments of the middle cerebral arteries, with a normal M1 bifurcation. Normal right posterior communicating artery (PCOM). Normal left posterior communicating artery (PCOM). Normal bilateral vertebral arteries. Normal basilar artery with a normal basilar bifurcation. The visualized bilateral superior cerebellar (SCA) arteries are normal. Normal bilateral P1, P2 and visualized P3 segments of the posterior cerebral arteries. There is no demonstrated aneurysm of the cahto of Landa. There is no demonstrated abnormality of the visualized brain. There is resection of the right thyroid. There is enlargement of the left thyroid. There are jugular lymph nodes measuring up to 1.5 cm. AORTIC ARCH: Normal visualized aortic arch. Normal origins of the brachiocephalic, left common carotid, and left subclavian arteries. RIGHT CAROTID ARTERIES: Normal right common carotid artery (CCA). Normal right common carotid bulb. There is mild atherosclerotic plaque formation of the origin of the right internal carotid artery with less than 50% cross sectional diameter stenosis. Normal visualized cervical portion of the right internal carotid artery. Normal origin of the right external carotid artery (ECA). LEFT CAROTID ARTERIES: Normal left common carotid artery (CCA). Normal left common carotid bulb. Normal origin of the left internal carotid (ICA) artery without a hemodynamically significant stenosis. Normal visualized cervical portion of the left internal carotid artery. Normal origin of the left external carotid artery (ECA). VERTEBRAL ARTERIES: Normal bilateral vertebral arteries. CT/CTA Head AND Neck W/ Contrast IMPRESSION: No intracranial aneurysm or large vessel occlusion. Mild narrowing of the proximal right internal carotid artery. No hemodynamically significant internal carotid artery stenosis. Electronically Signed: Rachid Terry MD at 10:32 EDT ,
--- NOTE | 2023-09-24 09:13 | EDS_ITS ---
HPI History of Present Illness Chief Complaint: Numb/Ting Detail of Chief Complaint: Numbness left side and confusion Informant: patient Onset/Context/Timing Onset: Days (Greater than 2 days ago) Context: Sudden Onset Timing: Continuous Quality and Location: Positive for Left Face Parasthesia, Left Arm Parasthesia and Left Leg Parasthesia Onset: Greater than 2 days ago Current Severity: Moderate Maximum Severity: Moderate Worsened by: Nothing Relieved by: Nothing Associated Symptoms Associated Symptoms: Negative for Headache, Nausea, Vomiting or Chest Pain Narrative Narrative: Patient is a 42-year-old woman. She is a former smoker. She quit 3 years ago. She has history of hypothyroidism, hypertension and depression. Mother had cardiovascular disease at early age, 30s. Mother had a heart attack as well as stroke. Patient does not have history of hypercoagulable state. Patient denies headache, visual disturbance, trouble with speech. She states she is confused. There is no history of drug use. Prior similar symptoms: No Recent Illness/Hospitalization: No [facility] Medical History Hemorrhoids Acid reflux Diarrhea Vomiting Nausea RUQ abdominal pain Epigastric pain Asthma Thyroid disease Fatigue Migraine Tobacco dependence syndrome Hypothyroidism Depression Constipation Home Medications ?Medication ?Instructions ?Recorded ?Last Taken ?Type hydrocortisone 1 % topical ointment 1 applic topical BID 2 weeks 10/05/20 Unknown Rx #28.35 grams levothyroxine 100 mcg tablet 100 mcg PO DAILY #30 tabs 10/05/20 Unknown Rx (Synthroid) prednisone 10 mg tablet 10 mg PO DAILY #48 TABLETS 06/17/22 Unknown Rx ciprofloxacin HCl 500 mg tablet 500 mg PO BID #14 TABLETS 02/25/23 Unknown Rx oxycodone-acetaminophen 5 mg-325 1 tab PO Q6H PRN PRN Pain 3 days 02/25/23 Unknown Rx mg tablet #12 TABLETS amoxicillin 500 mg tablet 500 mg PO TID #30 tabs 07/07/23 Unknown Rx Allergy/AdvReac Type Severity Reaction Status Date / Time diclofenac sodium (From Allergy Unknown Verified 09/24/23 08:53 Voltaren) hydrocodone bitartrate (From AdvReac Vomiting Verified 09/24/23 08:53 Vicodin)
--- NOTE | 2023-09-24 09:13 | ED.VIS.STROK ---
HPI History of Present Illness Chief Complaint: Numb/Ting Detail of Chief Complaint: Numbness left side and confusion Informant: patient Onset/Context/Timing Onset: Days (Greater than 2 days ago) Context: Sudden Onset Timing: Continuous Quality and Location: Positive for Left Face Parasthesia, Left Arm Parasthesia and Left Leg Parasthesia Onset: Greater than 2 days ago Current Severity: Moderate Maximum Severity: Moderate Worsened by: Nothing Relieved by: Nothing Associated Symptoms Associated Symptoms: Negative for Headache, Nausea, Vomiting or Chest Pain Narrative Narrative: Patient is a 42-year-old woman. She is a former smoker. She quit 3 years ago. She has history of hypothyroidism, hypertension and depression. Mother had cardiovascular disease at early age, 30s. Mother had a heart attack as well as stroke. Patient does not have history of hypercoagulable state. Patient denies headache, visual disturbance, trouble with speech. She states she is confused. There is no history of drug use. Prior similar symptoms: No Recent Illness/Hospitalization: No [facility] Medical History Hemorrhoids Acid reflux Diarrhea Vomiting Nausea RUQ abdominal pain Epigastric pain Asthma Thyroid disease Fatigue Migraine Tobacco dependence syndrome Hypothyroidism Depression Constipation Home Medications ?Medication ?Instructions ?Recorded ?Last Taken ?Type aripiprazole 2 mg tablet 2 mg PO QHS 09/24/23 09/23/23 History atorvastatin 10 mg tablet 10 mg PO QHS 09/24/23 09/23/23 History bupropion HCl 150 mg 24 hr tablet, 150 mg PO DAILY 09/24/23 09/24/23 History extended release levothyroxine 200 mcg tablet 200 mcg PO DAILY 09/24/23 09/24/23 History losartan 50 mg tablet 50 mg PO DAILY 09/24/23 09/24/23 History Allergy/AdvReac Type Severity Reaction Status Date / Time diclofenac sodium (From Allergy Unknown Verified 09/24/23 08:53 Voltaren) hydrocodone bitartrate (From AdvReac Vomiting Verified 09/24/23 08:53 Vicodin) Family History Mother Asthma Arthritis Heart disease Hypertension Father No known health problems Surgical History Hx of cholecystectomy Hx of tubal ligation Hx of partial thyroidectomy Social History Smoking Status: Former smoker alcohol intake: current alcohol intake frequency: a few times a month substance use type: does not use caffeine: No what type of physical activity do you participate in: none ROS ROS ED Constitutional Constitutional ED: Denies chills, fever(s), subjective, sweats or weakness Eyes Eyes: Denies blurry vision, change in vision or diplopia ENT ENT ED: Denies ear pain, rhinorrhea or sore throat Cardiovascular Cardiovascular: Denies chest pain, palpitations or racing heartbeat Respiratory/Chest Respiratory/Chest: Denies cough, dyspnea or dyspnea on exertion Gastrointestinal Gastrointestinal: Denies abdominal pain, nausea or vomiting Genitourinary Genitourinary ED: Denies dysuria, hematuria or urinary frequency Musculoskeletal Musculoskeletal: Denies arthralgias, back pain or myalgias Integumentary Reports rash and other Details: Rash near left shoulder. This is improving. It is not painful. Neurologic Neurologic: Reports paresthesias LUE (Worse left upper extremity) and LLE; Denies headache(s) Psychiatric Psychiatric: Reports depression; Denies anxiety or suicidal ideation Endocrine Endocrinology: Denies polydipsia or polyphagia Hematologic/Lymphatic Hematologic/Lymphatic: Denies easy bleeding or easy bruising EXAM Physical Exam Const Vital Signs: 09/24/23 08:52 09/24/23 09:25 09/24/23 09:26 Temperature 98 F Temperature Source Temporal Pulse Rate 104 H 98 Respiratory Rate 14 18 Blood Pressure 149/96 H 125/73 H Blood Pressure Mean 113 90 Pulse Ox 99 98 98 Oxygen Delivery Method Room Air Room Air Room Air 09/24/23 09:40 09/24/23 10:07 09/24/23 10:30 Temperature Temperature Source Pulse Rate 94 99 82 Respiratory Rate 18 18 18 Blood Pressure 122/70 H 118/72 123/76 H Blood Pressure Mean 87 87 91 Pulse Ox 98 99 100 Oxygen Delivery Method Room Air Room Air Room Air 09/24/23 11:00 09/24/23 11:30 09/24/23 12:00 Temperature Temperature Source Pulse Rate 86 88 87 Respiratory Rate 17 19 H 16 Blood Pressure 117/83 H 126/76 H 119/74 Blood Pressure Mean 94 92 89 Pulse Ox 99 99 98 Oxygen Delivery Method Room Air Room Air Room Air 09/24/23 12:08 09/24/23 12:30 Temperature 98.2 F Temperature Source Pulse Rate 86 92 Respiratory Rate 20 H 20 H Blood Pressure 126/69 H 141/87 H Blood Pressure Mean 88 105 Pulse Ox 98 99 Oxygen Delivery Method Room Air Positive well nourished and well developed General Appearance ED: well developed and NAD HEENT Reports moist mucous membranes atraumatic Nose: other Other Details: Normal Eyes PERRL and EOMs intact bilaterally Eyes Narrative: Visual field defect left eye upper outer quadrant General Eye ED: Negative for pale conjunctiva or scleral icterus Neck no lymphadenopathy, supple and no JVD Chest Wall inspection of chest normal and palpation of chest normal Resp normal respiratory effort and clear to auscultation bilaterally Cardio no murmurs Rate: regular rate Rhythm: regular rhythm Heart Sounds: S1 normal and S2 normal GI normal to inspection, nondistended, normoactive bowel sounds, soft to palpation, non-tender, non-distended and no masses Back/Spine no CVA tenderness Extremity normal to inspection Neuro oriented x3, CN's II-XII intact bilaterally and No no sensory deficits noted [place] Coma Scale: document GCS findings Spontaneous Obeys Commands Oriented 15 Sensorium / Orientation: alert Speech: speech normal Gait (Neuro): normal gait Motor Exam: strength 5/5 throughout Psych mental status grossly normal Skin no wounds General Skin Exam: Negative for jaundice Lesions: no lesions Rashes: no rashes NIHSS NIHSS Initial: 1a Level of Consciousness: 0 1b LOC Questions (Score 2 if aphasic/stupor): 0 1c LOC Commands (Only score 1st attempt): 0 2 Best Gaze (If aphasic, use reflexive mvmts.): 0 3 Visual: 1 (Homonymous superior quadrant opiate) 4 Facial Palsy: 0 5 Motor Arm Right (UN = amputation/fusion): 0 5 Motor Arm Left: 0 6 Motor Leg Right: 0 6 Motor Leg Left: 0 7 Limb ataxia (Only + if out of proportion): 0 8 Sensory (Aphasia/stupor=0 or 1, coma=2): 1 9 Best Language: 0 10 Dysarthria (mute, coma=2, intubated=UN): 0 11 Extinction and Inattention (only scored if +): 1 (Left side upper and lower extremity not face) Total Score: 3 MDM MDM MDM Narrative Medical decision making narrative: With numbness left side of face, upper and lower extremity and homonymous superior quadrant opiate concern patient's had a stroke. Stroke order set was initiated. Patient is outside the window for thrombolytics and retrieval. History & Record Review Additional record(s) reviewed:: Prior ED visit (Seen June 2023 for abdominal pain and June 2022 for allergic reaction. She was seen September 2020 for chest pain. November 2019 for right upper quadrant pain. June 2018 history of ocular migraine with status.) and Prior labs Lab Data Attestation: I reviewed the patient's lab results. Lab results narrative: CBC reveals mild anemia. This is new compared to prior. Basic metabolic panel is unremarkable. Troponin is normal. Glucose was elevated 142 with a normal CO2 anion gap. Patient has no history of diabetes. Labs: Laboratory Results - last 24 hr 09/24/23 09:20 WBC 6.7 RBC 3.86 L Hgb 11.9 L Hct 36.3 L MCV 94.0 MCH 30.8 MCHC 32.8 RDW Std Deviation 42.8 RDW Coeff of Brennan 12.5 Plt Count 316 MPV 11.0 Immature Gran % (Auto) 0.300 Neut % (Auto) 50.7 Lymph % (Auto) 41.1 H [place] % (Auto) 5.4 Eos % (Auto) 1.9 Baso % (Auto) 0.6 Absolute Neuts (auto) 3.4 Absolute Lymphs (auto) 2.76 Nucleated RBC % 0 PT 13.4 INR 1.0 APTT 28.1 Sodium 138 Potassium 3.6 Chloride 108 H Carbon Dioxide 23.0 Anion Gap 7 BUN 7 Creatinine 0.78 Estim Creat Clear Calc 121.40 Est GFR (MDRD) Af Amer 104 Est GFR (MDRD) Non-Af 86 BUN/Creatinine Ratio 9.0 L Glucose 142 H Calcium 8.6 Troponin I High Sens 4 Radiography Chest X-Ray - ED: 1 View and Read by ED Physician (Single view chest x-ray was normal cardiac silhouette size. Lung parenchyma is normal. Hilum is normal. Osseous structures are unremarkable. This is independent reviewed interpreted by nm [id number]) Diagnostic Testing: Clinical Impression(s) from Imaging Studies Chest X-Ray 09/24/23 09:10 IMPRESSION: Normal x-ray examination of the chest. Electronically Signed: Rachid Terry MD at 11:02 EDT , Head/Neck CTA 09/24/23 09:11 IMPRESSION: No intracranial aneurysm or large vessel occlusion. Mild narrowing of the proximal right internal carotid artery. No hemodynamically significant internal carotid artery stenosis. Electronically Signed: aRchid Terry MD at 10:32 EDT , EKG Initial EKG: Attestation: I personally reviewed and interpreted this EKG as follows: Interpretation: Sinus Rhythm (Rate is 97. EKG is normal. VA interval is 134 ms. Blair is normal. QRS duration is 80 ms. QT durations 358 ms.) Management Discussion w/another healthcare provider: Hospitalist Discharge Plan Dx/Rx/DC Orders Clinical Impression: Paresthesia of left upper and lower extremity, Elevated blood-pressure reading, without diagnosis of hypertension, Nondiabetic hyperglycemia, Right homonymous superior quadrantanopia Disposition Disposition: Acute Care Hospital [facility] Discharge Date/Time: 09/24/23 13:25
[2023-09-24 09:35] LABS: Absolute Lymphocyte Count 2.76 X10^3/uL (0.83-4.51); Absolute Neutrophil Count 3.4 X10^3/uL (2.0-7.7); Basophil# 0.04 X10^3/uL; Basophil% 0.6 % (0-1); Eosinophil# 0.13 X10^3/uL; Eosinophils% 1.9 % (0-5); Hematocrit 36.3 % (37-47); Hemoglobin 11.9 g/dL (12.0-15.0); Lymphocyte # 2.76 X10^3/ul (0.83-4.51); Lymphocyte % 41.1 % (19-41); Mean Corp Hgb Conc 32.8 g/dL (32-36); Mean Corpuscular Hgb 30.8 pg (27.0-32.0); Monocyte# 0.36 X10^3/uL; Monocyte% 5.4 % (0-10); NRBC Flagged by Analyzer 0 % (0-5); Neutrophil # 3.41 X10^3/uL (2.7-7.7); Neutrophil % 50.7 % (47-70); Platelet Count 316 K/mm3 (150-450); RBC Distribution Width CV 12.5 % (11.6-14.6); RBC Distribution Width SD 42.8 fl (35.1-43.9); Red Blood Count 3.86 M/mm3 (4.2-5.4); White Blood Count 6.7 K/mm3 (4.4-11.0)
[2023-09-24 09:46] LABS: Prothrombin Time (Protime)PT. 13.4 SECONDS (11.7-14.9)
[2023-09-24 09:47] LABS: Partial Thromboplast Time 28.1 Seconds (24.1-36.2)
[2023-09-24 09:56] LABS: Anion Gap 7 (5-15); BUN 7 mg/dL (7-18); Calcium,Total 8.6 mg/dL (8.5-10.1); Chloride 108 mmol/L (98-107); Creatinine, Serum 0.78 mg/dL (0.55-1.02); EST Glomerular Filtration Rate 86 mL/min (>60); Est Glom Filt Rate - Afr Amer 104 mL/min (>60); Glucose 142 mg/dL (74-106); Potassium 3.6 mmol/L (3.5-5.1); Sodium Level 138 mmol/L (136-145); Troponin-I HS 4 pg/mL (3.0-54.0)
--- NOTE | 2023-09-24 12:07 | NURSING ---
DR DEAN CALDERON
--- NOTE | 2023-09-24 12:20 | NURSING ---
PCU MORAN SUPERIOR HOMOMYMOUS QUADRANTANOPSIA, PARESTHESIA LEFT SIDE
--- NOTE | 2023-09-24 12:32 | PCM.HP.STD ---
HPI - General General Date of Admission: 09/24/23 Date of Service: 09/24/23 Chief Complaint: Left sided numbness and weakness HPI Narrative CORAL SÁNCHEZ, is a 42 F with history of hypothyroidism, former smoker, depression, hypertension, obesity who presented to [facility] ED 09/24/2023 for 2 days of left-sided numbness and weakness and difficulty processing information. In the ED patient was not stroke call given symptom duration but she had CTA which did not show any acute process. Hospitalist contacted for admission for stroke workup. Patient reports she went to bed Wednesday night woke up Wednesday with the feeling of her left arm and leg being asleep with left upper extremity more so than lower extremity and she is also been dropping things and feels both left upper lower extremities are weaker than usual. Also notes that she is having delays in processing information and responding to it like it took her a while to remember her address and had difficulty with preheating her oven. Patient reports she intermittently has some nausea, no changes in her vision that she noticed and no slurred speech. No injuries prior to this event and has not had any symptoms like this before. 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 She has no other acute or focal complaints. [facility] Medical History Hemorrhoids Acid reflux Diarrhea Vomiting Nausea RUQ abdominal pain Epigastric pain Asthma Thyroid disease Fatigue Migraine Tobacco dependence syndrome Hypothyroidism Depression Constipation Home Medications ?Medication ?Instructions ?Recorded ?Last Taken ?Type aripiprazole 2 mg tablet 2 mg PO QHS 09/24/23 09/23/23 History atorvastatin 10 mg tablet 10 mg PO QHS 09/24/23 09/23/23 History bupropion HCl 150 mg 24 hr tablet, 150 mg PO DAILY 09/24/23 09/24/23 History extended release levothyroxine 200 mcg tablet 200 mcg PO DAILY 09/24/23 09/24/23 History losartan 50 mg tablet 50 mg PO DAILY 09/24/23 09/24/23 History Allergy/AdvReac Type Severity Reaction Status Date / Time diclofenac sodium (From Allergy Unknown Verified 09/24/23 08:53 Voltaren) hydrocodone bitartrate (From AdvReac Vomiting Verified 09/24/23 08:53 Vicodin) Family History Mother Asthma Arthritis Heart disease Hypertension Father No known health problems Surgical History Hx of cholecystectomy Hx of tubal ligation Hx of partial thyroidectomy Social History Smoking Status: Former smoker alcohol intake: current alcohol intake frequency: a few times a month substance use type: does not use caffeine: No what type of physical activity do you participate in: none ROS ROS Narrative General: Denies fever/chills HENT: Has had a little bit of a headache, denies stuffy nose, denies sore throat EYES: Denies changes in vision but reports poor vision overall Resp: Denies cough, denies shortness of breath Cardiac: Denies chest pain GI: Denies abdominal pain, denies changes in bowel, blood but no nausea : Denies changes in urination Extremity: Denies swelling MSK: Left upper and lower extremity weakness upper greater than lower Neuro: Numbness in left upper and lower extremities left upper greater than lower Heme: Denies any bleeding or bruising Skin: Denies rashes Psychiatric: No complaints voiced Vital Signs Vital Signs Vital Signs: 09/24/23 08:52 09/24/23 09:25 09/24/23 09:26 Temperature 98 F Temperature Source Temporal Pulse Rate 104 H 98 Respiratory Rate 14 18 Blood Pressure 149/96 H 125/73 H Blood Pressure Mean 113 90 Pulse Ox 99 98 98 Oxygen Delivery Method Room Air Room Air Room Air 09/24/23 09:40 09/24/23 10:07 09/24/23 10:30 Temperature Temperature Source Pulse Rate 94 99 82 Respiratory Rate 18 18 18 Blood Pressure 122/70 H 118/72 123/76 H Blood Pressure Mean 87 87 91 Pulse Ox 98 99 100 Oxygen Delivery Method Room Air Room Air Room Air 09/24/23 11:00 09/24/23 11:30 09/24/23 12:00 Temperature Temperature Source Pulse Rate 86 88 87 Respiratory Rate 17 19 H 16 Blood Pressure 117/83 H 126/76 H 119/74 Blood Pressure Mean 94 92 89 Pulse Ox 99 99 98 Oxygen Delivery Method Room Air Room Air Room Air 09/24/23 12:08 Temperature 98.2 F Temperature Source Pulse Rate 86 Respiratory Rate 20 H Blood Pressure 126/69 H Blood Pressure Mean 88 Pulse Ox 98 Oxygen Delivery Method Weight Weight: 113.6 kg Body Mass Index (BMI) 40.4 Physical Exam Narrative General: Alert, oriented, no apparent distress HEENT: Atraumatic, normocephalic Eyes: Anicteric, normal conjunctiva, extraocular movements intact, pupils equal Neck: Supple Respiratory: Clear to auscultation bilaterally, normal respiratory effort Cardiovascular: Regular rate and rhythm GI: Soft, nontender, nondistended Extremities: No edema Musculoskeletal: Strength 5 out of 5 in right upper extremity, 4- out of 5 left upper extremity, 5 out of 5 right lower extremity, 4+ out of 5 left lower extremity Neuro: No overt focal neurological deficits, cranial nerves II through XII intact, [id number] without significant difficulty bilaterally, does have decreased sensation in left upper and lower extremities upper extremity greater than lower Skin: No rashes appreciated Psych: Cooperative Results Lab / Micro Data 09/24/23 09:20 09/24/23 09:20 Labs: Laboratory Results - last 24 hr 09/24/23 09:20: WBC 6.7, RBC 3.86 L, Hgb 11.9 L, Hct 36.3 L, MCV 94.0, MCH 30.8, MCHC 32.8, RDW Std Deviation 42.8, RDW Coeff of Brennan 12.5, Plt Count 316, MPV 11.0, Immature Gran % (Auto) 0.300, Neut % (Auto) 50.7, Lymph % (Auto) 41.1 H, [place] % (Auto) 5.4, Eos % (Auto) 1.9, Baso % (Auto) 0.6, Absolute Neuts (auto) 3.4, Absolute Lymphs (auto) 2.76, Nucleated RBC % 0, PT 13.4, INR 1.0, APTT 28.1, Sodium 138, Potassium 3.6, Chloride 108 H, Carbon Dioxide 23.0, Anion Gap 7, BUN 7, Creatinine 0.78, Estim Creat Clear Calc 121.40, Est GFR (MDRD) Af Amer 104, Est GFR (MDRD) Non-Af 86, BUN/Creatinine Ratio 9.0 L, Glucose 142 H, Calcium 8.6, Troponin I High Sens 4 Imaging Radiology Impression Chest X-Ray 09/24/23 09:10 IMPRESSION: Normal x-ray examination of the chest. Electronically Signed: Rachid Terry MD at 11:02 EDT , Head/Neck CTA 09/24/23 09:11 IMPRESSION: No intracranial aneurysm or large vessel occlusion. Mild narrowing of the proximal right internal carotid artery. No hemodynamically significant internal carotid artery stenosis. Electronically Signed: Rachid Terry MD at 10:32 EDT , Assessment & Plan Assessment/Plan (1) Paresthesia of left upper and lower extremity: (2) Depression: (3) Hypothyroidism: PLAN: Plan # Left-sided numbness and weakness with difficulty processing information -Admit to tele -CTA head and neck no acute stroke or significant stenosis -MRI ordered -EKG normal sinus rhythm -Teleneuro consult -NIH q4hr -asa, statin -Echo w/ bubble study -PT/OT/Speech eval #Hypothyroidism -Continue Synthroid -No recent TSH, will check # History of depression -Continue Abilify and Wellbutrin #Hypertension -Will continue losartan given it has been greater than 24 hours after stroke symptoms started #Morbid obesity -BMI 40.4 kg/m? -Complicates treatment, prognosis, outcomes -Recommend weight loss and lifestyle changes #DVT ppx: Lovenox SQ twice daily Sherice Corrales MD Charges/Coding Visit Charges Inpatient E&M: 34732 Init Hosp L1
--- NOTE | 2023-09-24 12:40 | ECHOCS_ITS ---
Reason For Study: TIA/STROKE Procedure This was a 2D Doppler, Color Flow transthoracic echocardiogram. The study was technically difficult. Contrast injection was performed. Exam performed portable in patient room. Left Ventricle Normal LV size. The estimated ejection fraction is 60 %. No evidence for diastolic dysfunction. No regional wall motion abnormalities noted. Right Ventricle Normal RV size. Normal systolic function. Atria The left and right atria are normal. No doppler evidence for ASD. Bubble contrast study negative for right to left interatrial shunt. Mitral Valve There is mild mitral annular calcification. There is no mitral valve stenosis. Trivial mitral valve insufficiency. Tricuspid Valve There is no tricuspid stenosis. No tricuspid valve insufficiency. Aortic Valve Trisinus/trileaflet aortic valve. There is no aortic stenosis. No aortic valve insufficiency. Pulmonic Valve There is no pulmonic valvular stenosis. No pulmonic valve insufficiency. Great Vessels Normal aortic root. Pericardium/Pleural No pericardial effusion. Medication Diluted definity 1ml given slow IV push to enhance endocardial definition. Performed a rapid injection of agitated mix of 9 cc saline and 1cc air to assess for atrial septal defect. MMode/2D Measurements & Calculations LVIDd: 4.3 cm IVSd: 1.5 cm Ao root diam: 3.1 cm LVIDs: 2.6 cm LVPWd: 1.4 cm FS: 40.7 % LAV(MOD-sp4): 47.7 ml LVAd ap4: 30.4 cm2 SV(MOD-sp4): 65.3 ml LVLd ap4: 7.8 cm EDV(MOD-sp4): 100.7 ml EDV(sp4-el): 100.9 ml LVAs ap4: 16.2 cm2 LVLs ap4: 6.6 cm ESV(MOD-sp4): 35.4 ml ESV(sp4-el): 33.7 ml EF(MOD-sp4): 64.8 % EF(sp4-el): 66.6 % SV(sp4-el): 67.2 ml LA A4 area: 19.6 cm2 LA dimension(2D): 4.0 cm RA A4 area: 9.8 cm2 TAPSE: 1.9 cm Time Measurements MV dec time: 0.20 sec Doppler Measurements & Calculations MV E max yoel: 75.6 cm/sec Lat Peak E' Yoel: 10.8 cm/sec Med Peak E' Yoel: 9.4 cm/sec MV A max yoel: 62.5 cm/sec E/E' lat: 7.0 E/E' med: 8.1 MV E/A: 1.2 MV V2 max: 79.7 cm/sec MV dec slope: 384.4 cm/sec2 Ao V2 max: 149.7 cm/sec MV max P.5 mmHg Ao max P.0 mmHg MV V2 mean: 60.1 cm/sec Ao V2 mean: 104.7 cm/sec MV mean P.5 mmHg Ao mean P.0 mmHg MV V2 VTI: 24.1 cm Ao V2 VTI: 30.1 cm AV (velocity ratio): 0.78 LV V1 max: 125.2 cm/sec PA V2 max: 129.3 cm/sec LV V1 max P.3 mmHg PA V2 mean: 93.3 cm/sec LV V1 mean P.9 mmHg LV V1 mean: 94.0 cm/sec LV V1 VTI: 23.5 cm ECHO/Echo Complete W/ Contrast Interpretation Summary The estimated ejection fraction is 60 %. No evidence for diastolic dysfunction. Trivial mitral valve insufficiency. Ordering Physician: Sherice Corrales Referring Physician: POLA CUNNINGHAM Performed By: Krystin Paniagua RCS
--- NOTE | 2023-09-24 14:20 | CASEMGMT ---
SW went to patient's room to complete a PHQ 9 with patient as she may have had a stroke. Patient was agreeable to complete PHQ 9, but she stated the aide went to get a wheelchair to take her downstairs for an MRI. CHUCK told patient SW can check back. Patient was open and said she is very depressed. Patient said her son . Patient sees Arabella, technical system analyst, at [facility]. Arabella started patient on a couple of meds and patient stated she feels better. CHUCK also asked patient about no insurance. Patient stated she has been going to [facility] and [facility] for her care. Patient said she will be getting insurance through her new job. Patient thought it would be a couple of weeks before it is active. CHUCK will check back with patient to do a PHQ 9. Stephanie CORTES
[2023-09-24] MEDS: Aspirin 325 MG Tablet PO (14:25)
--- NOTE | 2023-09-24 14:49 | NURSING ---
Per Suze certified histologic technician patient has dermal piercing under eye that they tested with magnet and the patient felt pulling so they cancelled the MRI
--- NOTE | 2023-09-24 15:31 | CASEMGMT ---
SW completed a PHQ9 as patient may have had a Stroke. Patient scored a 4 which indicates minimal depression. Patient did tell SW she is depressed as she lost her 22 year old son about a year ago. Patient does see swatch cutter Arabella at [facility]. Arabella does some counseling and she also started patient on two new meds which are helping. Patient denies any further needs for mental health. Stephanie Penn WELDING SETTER SEBASTIAN
[2023-09-24] MEDS: Enoxaparin 40 MG/0.4 ML Syringe SC (20:57)
[2023-09-24] MEDS: ARIPiprazole 2 MG Tablet PO (20:59)
[2023-09-24] MEDS: Atorvastatin Calcium 80 MG Tablet PO (21:00)
[2023-09-25 02:00] VITALS: BP 133/83; PULSE 98; RESP 16; TEMP 36.8; O2SAT 100
[2023-09-25 06:00] VITALS: BP 124/85; PULSE 84; RESP 18; TEMP 36.6; O2SAT 98
[2023-09-25 06:10] LABS: Absolute Lymphocyte Count 2.67 X10^3/uL (0.83-4.51); Basophil# 0.03 X10^3/uL; Basophil% 0.4 % (0-1); Eosinophil# 0.15 X10^3/uL; Eosinophils% 1.8 % (0-5); Hematocrit 35.4 % (37-47); Hemoglobin 11.6 g/dL (12.0-15.0); Lymphocyte # 2.67 X10^3/ul (0.83-4.51); Lymphocyte % 31.8 % (19-41); Mean Corp Hgb Conc 32.8 g/dL (32-36); Mean Corpuscular Hgb 31.2 pg (27.0-32.0); Mean Corpuscular Volume 95.2 fL (81-99); Mean Platelet Vol. 11.2 fl (6.2-12.0); Monocyte# 0.48 X10^3/uL; Monocyte% 5.7 % (0-10); NRBC Flagged by Analyzer 0 % (0-5); Neutrophil # 5.03 X10^3/uL (2.7-7.7); Neutrophil % 59.9 % (47-70); Platelet Count 297 K/mm3 (150-450); RBC Distribution Width CV 12.4 % (11.6-14.6); RBC Distribution Width SD 43.2 fl (35.1-43.9); Red Blood Count 3.72 M/mm3 (4.2-5.4); White Blood Count 8.4 K/mm3 (4.4-11.0)
[2023-09-25] MEDS: Levothyroxine 100 MCG Tablet 200 MCG PO (06:28)
[2023-09-25 07:03] LABS: AST(SGOT) 40 U/L (15-37); Alanine Aminotransfer ALT/SGPT 31 U/L (13-56); Albumin, Serum 3.1 g/dL (3.2-5.0); Alkaline Phosphatase 74 U/L (45-117); Anion Gap 8 (5-15); BUN 12 mg/dL (7-18); BUN/Creat Ratio 13.3 RATIO (10-20); Bilirubin, Direct 0.17 mg/dL (0.00-0.30); Calcium,Total 8.5 mg/dL (8.5-10.1); Chloride 105 mmol/L (98-107); Cholesterol 125 mg/dL (200); EST Glomerular Filtration Rate 73 mL/min (>60); Est Glom Filt Rate - Afr Amer 88 mL/min (>60); Estimated Creatinine Clearance 105.11 ml/min; Globulin 3.8 g/dL (2.2-4.2); Glucose 121 mg/dL (74-106); High Density Lipoprotein 32 mg/dL; Potassium 3.6 mmol/L (3.5-5.1); Protein, Total 6.9 g/dL (6.4-8.2); Sodium Level 136 mmol/L (136-145); Thyroid Stim Hormone (TSH) 0.385 uIU/mL (0.358-3.740); Triglycerides 197 mg/dL; Very Low Density Lipoprotein 39 mg/dL (5-40)
[2023-09-25 07:47] LABS: Hemoglobin A1c 5.3 % (3.8-5.6)
[2023-09-25] MEDS: Acetaminophen 325 MG Tablet 650 MG PO (08:00)
[2023-09-25 08:11] VITALS: O2SAT 98
--- NOTE | 2023-09-25 08:32 | STROKE.CONS ---
Assessment and Plan: Stroke Assessment/Plan CORAL SÁNCHEZ is a 42 year old right handed female ex-smoker with a history of ocular migraines (seen in ER 06/2018), hypothyroidism, HTN, and depression who presents with 2 day history of left arm/leg numbness to [facility] on 09/24/2023. Initial NIHSS-3. CT brain negative. CTA head/neck negative. She was admitted. TTE EF 60%. LDL 34, HgbA1c 5.3. She is on Asa/lipitor 80/lovenox. This AM BP 124/85. Neurological examination shows subjective left sided numbness. NIHSS-1 (sensory-1). ASSESSMENT/PLAN: Left sided numbness and headache. Suspect complicated migraine, but need MRI to rule out small stroke. Unable to obtain MRI due to cheek dermal piercing, therefore recommend treating with stroke prevention until MRI can be done as outpatient. 1) Continue daily anti-platelet medication (Asa 81) 2) Recommend discontinuing lipitor (not home med and LDL 34) 3) DC home after cleared by therapy. 4) Consideration for outpatient surgical removal of piercing (then she can have outpatient MRI). Patient will consider this. 5) Follow-up with outpatient neurology clinic. Primary team message on backline with recommendations. HPI Consult Data Date of Consult: 09/25/23 HPI Narrative HPI Narrative: CORAL SÁNCHEZ, is a 42 F who presents [facility] Medical History Hemorrhoids Acid reflux Diarrhea Vomiting Nausea RUQ abdominal pain Epigastric pain Asthma Thyroid disease Fatigue Migraine Tobacco dependence syndrome Hypothyroidism Depression Constipation Home Medications ?Medication ?Instructions ?Recorded ?Last Taken ?Type aripiprazole 2 mg tablet 2 mg PO QHS 09/24/23 09/23/23 History atorvastatin 10 mg tablet 10 mg PO QHS 09/24/23 09/23/23 History bupropion HCl 150 mg 24 hr tablet, 150 mg PO DAILY 09/24/23 09/24/23 History extended release levothyroxine 200 mcg tablet 200 mcg PO DAILY 09/24/23 09/24/23 History losartan 50 mg tablet 50 mg PO DAILY 09/24/23 09/24/23 History Allergy/AdvReac Type Severity Reaction Status Date / Time diclofenac sodium (From Allergy Unknown Verified 09/24/23 08:53 Voltaren) hydrocodone bitartrate (From AdvReac Vomiting Verified 09/24/23 08:53 Vicodin) Family History Mother Asthma Arthritis Heart disease Hypertension Father No known health problems Surgical History Hx of cholecystectomy Hx of tubal ligation Hx of partial thyroidectomy Social History Smoking Status: Former smoker alcohol intake: current alcohol intake frequency: a few times a month substance use type: does not use caffeine: No what type of physical activity do you participate in: none Vital Signs Vital Signs Vital Signs: 09/24/23 08:52 09/24/23 09:25 09/24/23 09:26 Temperature 98 F Temperature Source Temporal Pulse Rate 104 H 98 Respiratory Rate 14 18 Respiratory Effort Respiratory Depth Respiratory Pattern Blood Pressure 149/96 H 125/73 H Blood Pressure Mean 113 90 Blood Pressure Source Blood Pressure Position Blood Pressure Location Pulse Ox 99 98 98 Oxygen Delivery Method Room Air Room Air Room Air 09/24/23 09:40 09/24/23 10:07 09/24/23 10:30 Temperature Temperature Source Pulse Rate 94 99 82 Respiratory Rate 18 18 18 Respiratory Effort Respiratory Depth Respiratory Pattern Blood Pressure 122/70 H 118/72 123/76 H Blood Pressure Mean 87 87 91 Blood Pressure Source Blood Pressure Position Blood Pressure Location Pulse Ox 98 99 100 Oxygen Delivery Method Room Air Room Air Room Air 09/24/23 11:00 09/24/23 11:30 09/24/23 12:00 Temperature Temperature Source Pulse Rate 86 88 87 Respiratory Rate 17 19 H 16 Respiratory Effort Respiratory Depth Respiratory Pattern Blood Pressure 117/83 H 126/76 H 119/74 Blood Pressure Mean 94 92 89 Blood Pressure Source Blood Pressure Position Blood Pressure Location Pulse Ox 99 99 98 Oxygen Delivery Method Room Air Room Air Room Air 09/24/23 12:08 09/24/23 12:30 09/24/23 13:00 Temperature 98.2 F Temperature Source Pulse Rate 86 92 84 Respiratory Rate 20 H 20 H 17 Respiratory Effort Respiratory Depth Respiratory Pattern Blood Pressure 126/69 H 141/87 H 132/87 H Blood Pressure Mean 88 105 102 Blood Pressure Source Blood Pressure Position Blood Pressure Location Pulse Ox 98 99 98 Oxygen Delivery Method Room Air Room Air 09/24/23 13:26 09/24/23 13:49 09/24/23 17:10 Temperature 98.4 F 98.4 F Temperature Source Oral Oral Pulse Rate 88 80 Respiratory Rate 18 16 Respiratory Effort Respiratory Depth Respiratory Pattern Blood Pressure 133/77 H 138/86 H Blood Pressure Mean 95 103 Blood Pressure Source Monitor Monitor Blood Pressure Position Semi-Fowlers Sitting Blood Pressure Location Right Arm Right Arm Pulse Ox 100 100 Oxygen Delivery Method Room Air Room Air Room Air 09/24/23 17:48 09/24/23 21:10 09/24/23 22:00 Temperature 98.3 F Temperature Source Oral Pulse Rate 91 Respiratory Rate 16 Respiratory Effort Normal Respiratory Depth Normal Respiratory Pattern Normal Blood Pressure 132/85 H Blood Pressure Mean 100 Blood Pressure Source Monitor Blood Pressure Position Sitting Blood Pressure Location Right Arm Pulse Ox 98 100 Oxygen Delivery Method Room Air Room Air Room Air 09/25/23 02:00 09/25/23 02:00 09/25/23 06:00 Temperature 98.3 F 98 F Temperature Source Oral Temporal Pulse Rate 98 84 Respiratory Rate 16 18 Respiratory Effort Normal Respiratory Depth Normal Respiratory Pattern Normal Blood Pressure 133/83 H 124/85 H Blood Pressure Mean 99 98 Blood Pressure Source Monitor Monitor Blood Pressure Position Sitting Blood Pressure Location Right Arm Pulse Ox 100 98 Oxygen Delivery Method Room Air Room Air Room Air 09/25/23 08:11 Temperature Temperature Source Pulse Rate Respiratory Rate Respiratory Effort Respiratory Depth Respiratory Pattern Blood Pressure Blood Pressure Mean Blood Pressure Source Blood Pressure Position Blood Pressure Location Pulse Ox 98 Oxygen Delivery Method Room Air Weight Weight: 113.398 kg Body Mass Index (BMI) 40.3 NIHSS NIHSS Nursing Documentation NIHSS Nursing Documentation: NIHSS: Ischemic Stroke/TIA Start: 09/24/23 13:15 Text: For PCU Patients: NIH and Neuro Check every 4 Status: Active hours, PRN and with change in RN caregiver. Freq: [id number] Protocol: Activity Type Activity Date Activity User E-sign Co-sign Detail Recorded Client Recorded Date Recorded By Document 09/25/23 06:00 RPS desktop 09/25/23 06:43 RPS 09/25/23 06:00 NIH Stroke Scale [NIHSS] A score of 0 is normal or asymptomatic . Total possible score is 42. Inpatient: RN or Physician to activate a stroke alert for onset of new stroke symptoms or with NIHSS increase >/= 3 points. Following change in neurological status, NIHSS will be performed per physician order or more frequently PRN. -1a. Level of Consciousness Alert; keenly responsive -1b. LOC Questions Answers BOTH questions correctly. -1c. LOC Commands Performs both tasks correctly . -2. Best Gaze Normal -3. Visual No visual loss -4. Facial Palsy Normal symmetrical movements -5a. Left Arm No drift; arm holds 90 (or 45 ) degrees for full 10 seconds -5b. Right Arm No drift; arm holds 90 (or 45 ) degrees for full 10 seconds -6a. Left Leg No drift; leg holds 30-degree position for full 5 seconds -6b. Right Leg No drift; leg holds 30-degree position for full 5 seconds -7. Limb Ataxia Absent -8. Sensory Mild-to- moderate sensory loss; -9. Best Language No aphasia; normal -10. Dysarthria Normal -11. Extinction and Inattention No abnormality -Total 1 Query Text:A score of 0 is normal or asymptomatic. Total possible score is 42 . ED: Notify Physician for NIHSS increase by > / = 3 points. Inpatient: RN or Physician to activate a stroke alert for NIHSS increase of > / = 3 points. Coma Scale [Assess] -Eye Opening Spontaneous -Motor Obeys Commands -Verbal Oriented [Total] -Coma Scale Total 15 NIHSS 1a. Level of Consciousness: Alert; keenly responsive 1b. LOC Questions: Answers BOTH questions correctly. 1c. LOC Commands: Performs both tasks correctly. 2. Best Gaze: Normal 3. Visual: No visual loss 4. Facial Palsy: Normal symmetrical movements 5a. Left Arm: No drift; arm holds 90 (or 45) degrees for full 10 seconds 5b. Right Arm: No drift; arm holds 90 (or 45) degrees for full 10 seconds 6a. Left Leg: No drift; leg holds 30-degree position for full 5 seconds 6b. Right Leg: No drift; leg holds 30-degree position for full 5 seconds 7. Limb Ataxia: Absent 8. Sensory: [id number] sensory loss; 9. Best Language: No aphasia; normal 10. Dysarthria: Normal 11. Extinction and Inattention: No abnormality Total: 1 Physical Exam Neuro Neuro Narrative: Neurological examination: General: The patient appears nutritionally appropriate, well-groomed, and appears comfortable in no acute distress. Mental Status: ?The patient?s mental status was normal including orientation. ?Language was intact. ?Cranial nerves: ?Visual martinez full, and extra-ocular motion was intact. Face motion symmetric. Tongue was midline with normal movement. ?There was no dysarthria. Motor: Normal strength in all four extremities. No pronator drift. Sensation: Decreased sensory in left arm and leg (face okay).?Coordination: ?Bilateral finger to nose was normal. ?There was no dysmetria. Gait: ?deferred Lab / Micro Data 09/25/23 05:15 09/25/23 05:15 Labs: Laboratory Results - last 24 hr 09/24/23 09:20: WBC 6.7, RBC 3.86 L, Hgb 11.9 L, Hct 36.3 L, MCV 94.0, MCH 30.8, MCHC 32.8, RDW Std Deviation 42.8, RDW Coeff of Brennan 12.5, Plt Count 316, MPV 11.0, Immature Gran % (Auto) 0.300, Neut % (Auto) 50.7, Lymph % (Auto) 41.1 H, [place] % (Auto) 5.4, Eos % (Auto) 1.9, Baso % (Auto) 0.6, Absolute Neuts (auto) 3.4, Absolute Lymphs (auto) 2.76, Nucleated RBC % 0, PT 13.4, INR 1.0, APTT 28.1, Sodium 138, Potassium 3.6, Chloride 108 H, Carbon Dioxide 23.0, Anion Gap 7, BUN 7, Creatinine 0.78, Estim Creat Clear Calc 121.40, Est GFR (MDRD) Af Amer 104, Est GFR (MDRD) Non-Af 86, BUN/Creatinine Ratio 9.0 L, Glucose 142 H, Calcium 8.6, Troponin I High Sens 4 09/25/23 05:15: WBC 8.4, RBC 3.72 L, Hgb 11.6 L, Hct 35.4 L, MCV 95.2, MCH 31.2, MCHC 32.8, RDW Std Deviation 43.2, RDW Coeff of Brennan 12.4, Plt Count 297, MPV 11.2, Immature Gran % (Auto) 0.400, Neut % (Auto) 59.9, Lymph % (Auto) 31.8, [place] % (Auto) 5.7, Eos % (Auto) 1.8, Baso % (Auto) 0.4, Absolute Neuts (auto) 5.0, Absolute Lymphs (auto) 2.67, Nucleated RBC % 0, Sodium 136, Potassium 3.6, Chloride 105, Carbon Dioxide 23.0, Anion Gap 8, BUN 12, Creatinine 0.90, Estim Creat Clear Calc 105.11, Est GFR (MDRD) Af Amer 88, Est GFR (MDRD) Non-Af 73, BUN/Creatinine Ratio 13.3, Glucose 121 H, Hemoglobin A1c 5.3, Calcium 8.5, Total Bilirubin 0.50, Direct Bilirubin 0.17, AST 40 H, ALT 31, Alkaline Phosphatase 74, Total Protein 6.9, Albumin 3.1 L, Globulin 3.8, Triglycerides 197, Cholesterol 125, LDL Cholesterol 54, VLDL Cholesterol 39, HDL Cholesterol 32 L, TSH 0.385 Imaging Radiology Impression Chest X-Ray 09/24/23 09:10 IMPRESSION: Normal x-ray examination of the chest. Electronically Signed: Rachid Terry MD at 11:02 EDT , Head/Neck CTA 09/24/23 09:11 IMPRESSION: No intracranial aneurysm or large vessel occlusion. Mild narrowing of the proximal right internal carotid artery. No hemodynamically significant internal carotid artery stenosis. Electronically Signed: Rachid Terry MD at 10:32 EDT , Echocardiogram 09/24/23 12:40 Interpretation Summary The estimated ejection fraction is 60 %. No evidence for diastolic dysfunction. Trivial mitral valve insufficiency. Ordering Physician: Sherice Corrales Referring Physician: POLA CUNNINGHAM Performed By: Krystin Paniagua RCS Active Medications Active Medications Active Medications: Current Medications Generic Name Dose Route Start Last Admin Trade Name Freq PRN Reason Stop Dose Admin Acetaminophen 650 mg 09/24/23 13:15 09/25/23 08:00 Acetaminophen 325 Mg Tablet PO 650 mg Q6H PRN PRN Administration Pain 1-10 Or Fever >100.7 Albuterol Sulfate 2.5 mg 09/24/23 13:15 Albuterol 2.5 Mg/3 Ml Vial.Neb. INHALATION Q2H PRN PRN SOB &/OR WHEEZING Aripiprazole 2 mg 09/24/23 22:00 09/24/23 20:59 Aripiprazole 2 Mg Tablet PO 2 mg QHS SIL Administration Protocol Aspirin 81 mg 09/25/23 08:00 Aspirin 81 Mg Tab.Chew PO BREAKFAST SIL Atorvastatin Calcium 80 mg 09/24/23 22:00 09/24/23 21:00 Atorvastatin Calcium 80 Mg Tablet PO 80 mg QHS SIL Administration Bupropion HCl 150 mg 09/25/23 10:00 Bupropion (Xl) 150 Mg Tablet.Xl PO DAILY SIL Enoxaparin Sodium 40 mg 09/24/23 22:00 09/24/23 20:57 Enoxaparin 40 Mg/0.4 Ml Syringe SC 40 mg BID SIL Administration Hydralazine HCl 5 mg 09/24/23 13:15 Hydralazine 20 Mg/Ml Vial IV 09/25/23 13:15 Q30M PRN maintain BP parameters with HR <60 Levothyroxine Sodium 200 mcg 09/25/23 06:00 09/25/23 06:28 Levothyroxine 100 Mcg Tablet PO 200 mcg DAILY@0600 SIL Administration Losartan Potassium 50 mg 09/25/23 10:00 Losartan Potassium 50 Mg Tablet PO DAILY SIL Protocol Melatonin 3 mg 09/24/23 13:15 Melatonin 3 Mg Tablet PO QHS PRN PRN INSOMNIA Ondansetron HCl 4 mg 09/24/23 13:15 Ondansetron 4 Mg/2 Ml Vial IV Q8H PRN PRN NAUSEA/VOMITING Senna/Docusate Sodium 2 tablet 09/24/23 13:15 Senna/Docusate Sodium 1 Tablet PO BID PRN PRN Constipation Sodium Chloride 10 - 40 ml 09/24/23 13:27 0.9% Saline Lock 10 Ml Syringe IV UD PRN SALINE FLUSH
[2023-09-25 09:00] VITALS: BP 121/73; PULSE 78; RESP 16; TEMP 36.1; O2SAT 98
[2023-09-25] MEDS: Aspirin 81 MG TAB.CHEW PO (09:11)
[2023-09-25] MEDS: Enoxaparin 40 MG/0.4 ML Syringe SC (09:11)
[2023-09-25] MEDS: Losartan Potassium 50 MG Tablet PO (09:11)
[2023-09-25] MEDS: buPROPion (XL) 150 MG TABLET.XL PO (09:13)
--- NOTE | 2023-09-25 10:15 | STROKE.CONS ---
Assessment and Plan: Stroke Assessment/Plan CORAL SÁNCHEZ is a 42 year old right handed female ex-smoker with history of ocular migraines, Hypothyroidism, HTN, and depression who presents with left face/arm/leg numbness. She presented to [facility]. Initial NIHSS-3. CT brain negative. CTA head/neck negative. She was admitted. TTE EF 60%. LDL 34, HgbA1c 5.3. She is on Asa, lipitor 80, and lovenox. Neurological examination shows subjective numbness on left arm and leg, NIHSS-1 (sens-1) Assessment/Plan: Left sided numbness and NAVA. Suspected Complicated migraine, but can not rule out stroke without MRI brain. Given she is unable to have MRI currently, recommend treating with stroke prevention. Otherwise inpatient stroke work-up completed. 1) Recommend Asa 81mg daily. 2) Recommend stopping lipitor which is not a home med and LDL 34 3) DC home today if cleared by PT. 4) Consideration for surgical removal of cheek piercing as outpatient and outpatient MRI brain if she elects to have piercing removed 5) Follow-up in outpatient neurology clinic Recommendations messaged to primary on backline. HPI Consult Data Date of Consult: 09/25/23 HPI Narrative HPI Narrative: CORAL SÁNCHEZ is a 42 year old right handed female ex-smoker with history of ocular migraines, Hypothyroidism, HTN, and depression who presents with left face/arm/leg numbness. She presented to [facility]. Initial NIHSS-3. CT brain negative. CTA head/neck negative. She was admitted. TTE EF 60%. LDL 34, HgbA1c 5.3. She is on Asa, lipitor 80, and lovenox. This morning she reports her numbness persists in left arm and leg (face is okay). NAVA 4/10. She is unable to have MRI due to dermal piercing in cheek- it has to be removed surgically bc it is anchored in the muscle. She is possibly interested in having this done as outpatient. [facility] Medical History Hemorrhoids Acid reflux Diarrhea Vomiting Nausea RUQ abdominal pain Epigastric pain Asthma Thyroid disease Fatigue Migraine Tobacco dependence syndrome Hypothyroidism Depression Constipation Home Medications ?Medication ?Instructions ?Recorded ?Last Taken ?Type aripiprazole 2 mg tablet 2 mg PO QHS 09/24/23 09/23/23 History atorvastatin 10 mg tablet 10 mg PO QHS 09/24/23 09/23/23 History bupropion HCl 150 mg 24 hr tablet, 150 mg PO DAILY 09/24/23 09/24/23 History extended release levothyroxine 200 mcg tablet 200 mcg PO DAILY 09/24/23 09/24/23 History losartan 50 mg tablet 50 mg PO DAILY 09/24/23 09/24/23 History Allergy/AdvReac Type Severity Reaction Status Date / Time diclofenac sodium (From Allergy Unknown Verified 09/24/23 08:53 Voltaren) hydrocodone bitartrate (From AdvReac Vomiting Verified 09/24/23 08:53 Vicodin) Family History Mother Asthma Arthritis Heart disease Hypertension Father No known health problems Surgical History Hx of cholecystectomy Hx of tubal ligation Hx of partial thyroidectomy Social History Smoking Status: Former smoker alcohol intake: current alcohol intake frequency: a few times a month substance use type: does not use caffeine: No what type of physical activity do you participate in: none Vital Signs Vital Signs Vital Signs: 09/24/23 10:30 09/24/23 11:00 09/24/23 11:30 Temperature Temperature Source Pulse Rate 82 86 88 Respiratory Rate 18 17 19 H Respiratory Effort Respiratory Depth Respiratory Pattern Blood Pressure 123/76 H 117/83 H 126/76 H Blood Pressure Mean 91 94 92 Blood Pressure Source Blood Pressure Position Blood Pressure Location Pulse Ox 100 99 99 Oxygen Delivery Method Room Air Room Air Room Air 09/24/23 12:00 09/24/23 12:08 09/24/23 12:30 Temperature 98.2 F Temperature Source Pulse Rate 87 86 92 Respiratory Rate 16 20 H 20 H Respiratory Effort Respiratory Depth Respiratory Pattern Blood Pressure 119/74 126/69 H 141/87 H Blood Pressure Mean 89 88 105 Blood Pressure Source Blood Pressure Position Blood Pressure Location Pulse Ox 98 98 99 Oxygen Delivery Method Room Air Room Air 09/24/23 13:00 09/24/23 13:26 09/24/23 13:49 Temperature 98.4 F Temperature Source Oral Pulse Rate 84 88 Respiratory Rate 17 18 Respiratory Effort Respiratory Depth Respiratory Pattern Blood Pressure 132/87 H 133/77 H Blood Pressure Mean 102 95 Blood Pressure Source Monitor Blood Pressure Position Semi-Fowlers Blood Pressure Location Right Arm Pulse Ox 98 100 Oxygen Delivery Method Room Air Room Air Room Air 09/24/23 17:10 09/24/23 17:48 09/24/23 21:10 Temperature 98.4 F 98.3 F Temperature Source Oral Oral Pulse Rate 80 91 Respiratory Rate 16 16 Respiratory Effort Respiratory Depth Respiratory Pattern Blood Pressure 138/86 H 132/85 H Blood Pressure Mean 103 100 Blood Pressure Source Monitor Monitor Blood Pressure Position Sitting Sitting Blood Pressure Location Right Arm Right Arm Pulse Ox 100 98 100 Oxygen Delivery Method Room Air Room Air Room Air 09/24/23 22:00 09/25/23 02:00 09/25/23 02:00 Temperature 98.3 F Temperature Source Oral Pulse Rate 98 Respiratory Rate 16 Respiratory Effort Normal Normal Respiratory Depth Normal Normal Respiratory Pattern Normal Normal Blood Pressure 133/83 H Blood Pressure Mean 99 Blood Pressure Source Monitor Blood Pressure Position Sitting Blood Pressure Location Right Arm Pulse Ox 100 Oxygen Delivery Method Room Air Room Air Room Air 09/25/23 06:00 09/25/23 08:11 09/25/23 09:00 Temperature 98 F 97.0 F L Temperature Source Temporal Temporal Pulse Rate 84 78 Respiratory Rate 18 16 Respiratory Effort Respiratory Depth Respiratory Pattern Blood Pressure 124/85 H 121/73 H Blood Pressure Mean 98 89 Blood Pressure Source Monitor Monitor Blood Pressure Position Semi-Fowlers Blood Pressure Location Right Arm Pulse Ox 98 98 98 Oxygen Delivery Method Room Air Room Air Room Air Weight Weight: 113.398 kg Body Mass Index (BMI) 40.3 NIHSS NIHSS Nursing Documentation NIHSS Nursing Documentation: NIHSS: Ischemic Stroke/TIA Start: 09/24/23 13:15 Text: For PCU Patients: NIH and Neuro Check every 4 Status: Active hours, PRN and with change in RN caregiver. Freq: [id number] Protocol: Activity Type Activity Date Activity User E-sign Co-sign Detail Recorded Client Recorded Date Recorded By Document 09/25/23 09:00 JS desktop 09/25/23 09:25 JS 09/25/23 09:00 NIH Stroke Scale [NIHSS] A score of 0 is normal or asymptomatic . Total possible score is 42. Inpatient: RN or Physician to activate a stroke alert for onset of new stroke symptoms or with NIHSS increase >/= 3 points. Following change in neurological status, NIHSS will be performed per physician order or more frequently PRN. -1a. Level of Consciousness Alert; keenly responsive -1b. LOC Questions Answers BOTH questions correctly. -2. Best Gaze Normal -3. Visual No visual loss -4. Facial Palsy Normal symmetrical movements -5a. Left Arm No drift; arm holds 90 (or 45 ) degrees for full 10 seconds -5b. Right Arm No drift; arm holds 90 (or 45 ) degrees for full 10 seconds -6a. Left Leg No drift; leg holds 30-degree position for full 5 seconds -6b. Right Leg No drift; leg holds 30-degree position for full 5 seconds -7. Limb Ataxia Absent -8. Sensory Mild-to- moderate sensory loss; -9. Best Language No aphasia; normal -10. Dysarthria Normal -11. Extinction and Inattention No abnormality -Total 1 Query Text:A score of 0 is normal or asymptomatic. Total possible score is 42 . ED: Notify Physician for NIHSS increase by > / = 3 points. Inpatient: RN or Physician to activate a stroke alert for NIHSS increase of > / = 3 points. Coma Scale [Assess] -Eye Opening Spontaneous -Motor Obeys Commands -Verbal Oriented [Total] -Coma Scale Total 15 NIHSS 1a. Level of Consciousness: Alert; keenly responsive 1b. LOC Questions: Answers BOTH questions correctly. 1c. LOC Commands: Performs both tasks correctly. 2. Best Gaze: Normal 3. Visual: No visual loss 4. Facial Palsy: Normal symmetrical movements 5a. Left Arm: No drift; arm holds 90 (or 45) degrees for full 10 seconds 5b. Right Arm: No drift; arm holds 90 (or 45) degrees for full 10 seconds 6a. Left Leg: No drift; leg holds 30-degree position for full 5 seconds 7. Limb Ataxia: Absent 8. Sensory: [id number] sensory loss; 9. Best Language: No aphasia; normal 10. Dysarthria: Normal 11. Extinction and Inattention: No abnormality Total: 1 Physical Exam Neuro Neuro Narrative: Neurological examination: General: The patient appears nutritionally appropriate, well-groomed, and appears comfortable in no acute distress. Mental Status: ?The patient?s mental status was normal including orientation. ?Language was intact. ?Cranial nerves: ?Visual martinez full, and extra-ocular motion was intact. Face motion symmetric. Tongue was midline with normal movement. ?There was no dysarthria. Motor: Normal strength in all four extremities. No pronator drift. Entrainment noted in left hand with FFM. Sensation: Decreased sensory in left arm/leg. ?Coordination: ?Bilateral finger to nose was normal. ?There was no dysmetria. Gait: ?deferred Lab / Micro Data 09/25/23 05:15 09/25/23 05:15 Labs: Laboratory Results - last 24 hr 09/25/23 05:15: WBC 8.4, RBC 3.72 L, Hgb 11.6 L, Hct 35.4 L, MCV 95.2, MCH 31.2, MCHC 32.8, RDW Std Deviation 43.2, RDW Coeff of Brennan 12.4, Plt Count 297, MPV 11.2, Immature Gran % (Auto) 0.400, Neut % (Auto) 59.9, Lymph % (Auto) 31.8, T[place]air % (Auto) 5.7, Eos % (Auto) 1.8, Baso % (Auto) 0.4, Absolute Neuts (auto) 5.0, Absolute Lymphs (auto) 2.67, Nucleated RBC % 0, Sodium 136, Potassium 3.6, Chloride 105, Carbon Dioxide 23.0, Anion Gap 8, BUN 12, Creatinine 0.90, Estim Creat Clear Calc 105.11, Est GFR (MDRD) Af Amer 88, Est GFR (MDRD) Non-Af 73, BUN/Creatinine Ratio 13.3, Glucose 121 H, Hemoglobin A1c 5.3, Calcium 8.5, Total Bilirubin 0.50, Direct Bilirubin 0.17, AST 40 H, ALT 31, Alkaline Phosphatase 74, Total Protein 6.9, Albumin 3.1 L, Globulin 3.8, Triglycerides 197, Cholesterol 125, LDL Cholesterol 54, VLDL Cholesterol 39, HDL Cholesterol 32 L, TSH 0.385 Imaging Radiology Impression Chest X-Ray 09/24/23 09:10 IMPRESSION: Normal x-ray examination of the chest. Electronically Signed: Rachid Terry MD at 11:02 EDT , Head/Neck CTA 09/24/23 09:11 IMPRESSION: No intracranial aneurysm or large vessel occlusion. Mild narrowing of the proximal right internal carotid artery. No hemodynamically significant internal carotid artery stenosis. Electronically Signed: Rachid Terry MD at 10:32 EDT Reading Location ID and State: [facility] [place] , Service support , Echocardiogram 09/24/23 12:40 Interpretation Summary The estimated ejection fraction is 60 %. No evidence for diastolic dysfunction. Trivial mitral valve insufficiency. Ordering Physician: Sherice Corrales Referring Physician: POLA CUNNINGHAM Performed By: Krystin Paniagua RCS Active Medications Active Medications Active Medications: Current Medications Generic Name Dose Route Start Last Admin Trade Name Freq PRN Reason Stop Dose Admin Acetaminophen 650 mg 09/24/23 13:15 09/25/23 08:00 Acetaminophen 325 Mg Tablet PO 650 mg Q6H PRN PRN Administration Pain 1-10 Or Fever >100.7 Albuterol Sulfate 2.5 mg 09/24/23 13:15 Albuterol 2.5 Mg/3 Ml Vial.Neb. INHALATION Q2H PRN PRN SOB &/OR WHEEZING Aripiprazole 2 mg 09/24/23 22:00 09/24/23 20:59 Aripiprazole 2 Mg Tablet PO 2 mg QHS SIL Administration Protocol Aspirin 81 mg 09/25/23 08:00 09/25/23 09:11 Aspirin 81 Mg Tab.Chew PO 81 mg BREAKFAST SIL Administration Atorvastatin Calcium 80 mg 09/24/23 22:00 09/24/23 21:00 Atorvastatin Calcium 80 Mg Tablet PO 80 mg QHS SIL Administration Bupropion HCl 150 mg 09/25/23 10:00 09/25/23 09:13 Bupropion (Xl) 150 Mg Tablet.Xl PO 150 mg DAILY SIL Administration Enoxaparin Sodium 40 mg 09/24/23 22:00 09/25/23 09:11 Enoxaparin 40 Mg/0.4 Ml Syringe SC 40 mg BID SIL Administration Hydralazine HCl 5 mg 09/24/23 13:15 Hydralazine 20 Mg/Ml Vial IV 09/25/23 13:15 Q30M PRN maintain BP parameters with HR <60 Levothyroxine Sodium 200 mcg 09/25/23 06:00 09/25/23 06:28 Levothyroxine 100 Mcg Tablet PO 200 mcg DAILY@0600 SIL Administration Losartan Potassium 50 mg 09/25/23 10:00 09/25/23 09:11 Losartan Potassium 50 Mg Tablet PO 50 mg DAILY SIL Administration Protocol Melatonin 3 mg 09/24/23 13:15 Melatonin 3 Mg Tablet PO QHS PRN PRN INSOMNIA Ondansetron HCl 4 mg 09/24/23 13:15 Ondansetron 4 Mg/2 Ml Vial IV Q8H PRN PRN NAUSEA/VOMITING Senna/Docusate Sodium 2 tablet 09/24/23 13:15 Senna/Docusate Sodium 1 Tablet PO BID PRN PRN Constipation Sodium Chloride 10 - 40 ml 09/24/23 13:27 0.9% Saline Lock 10 Ml Syringe IV UD PRN SALINE FLUSH
--- NOTE | 2023-09-25 11:55 | CASEMGMT ---
OT is recommending patient get outpatient OT, visual therapy, and a driving evaluation due to vision issues. SW found information on [facility]'s driving program. Patient is active with [facility]'s financial assist since she currently does not have insurance. CHUCK provided patient with this information and she will follow up with her F PCP for referral. Stephanie Penn ANTHROPOLOGY INSTRUCTOR SEBASTIAN
--- NOTE | 2023-09-25 12:00 | NURSING ---
Pt refused to have manager monitoring on. Pt states Im just waiting on my discharge paperwork.
--- NOTE | 2023-09-25 12:58 | CASEMGMT ---
RN SHAYLA provided pt with outpt therapy rx for OT and for driving evaluation. Pt states she will get this done at [facility] as she is self pay and established there. Pt denies any further needs at this time and is ready for dc.
--- NOTE | 2023-09-25 13:27 | DCINST_ITS ---
Discharge Instructions Diet Discharge Diet: - (DASH diet) Activity Discharge Activity: - ([facility] driving evaluation prior to driving, handout provided prior to discharge) Follow Up Care Test Results: Test results from this visit will be discussed in further detail at your follow- up appointment, if applicable. Discharge Plan Admission Admit Date/Time: 09/24/23 12:33 Primary Reason for Your Visit: Left sided weakness and numbness Attending Provider: Sherice Corrales Primary Care Provider: Suze Nuñez [facility] Consulting Providers: Tai Sim; Tala Sommer; Chanda Childs; Pam Marques; Aleisha Aguilar; Chavo Barakat; Marly Singh; Keshawn Bundy; Raffy Alves; Elvis Reza; Citlalli Nowak; Shade Ji; Jennifer Oglesby; Adrián Thompson; Devin Ramos; Mckay Pina; Krystle Castillo; Humble Doherty; Terra Duque; Bailey Jensen Instructions Patient Instructions: Stroke: Self-Care, Discharge Instructions for Stroke Additional Instructions / Restrictions: DISCHARGE INSTRUCTIONS PLEASE READ *Please take this with you to your next doctors appointment* -You will need to begin taking a baby aspirin, this can be obtained [id number] but will be sent into the pharmacy in the event that this is easier for you to obtain -[facility] driving evaluation prior to driving, handout provided prior to discharge his this will need to be coordinated through your primary care office -You will be given a referral for outpatient occupational therapy for your left arm weakness -It is also advised that you follow-up with ophthalmology -It is advised that you have outpatient MRI if you are able/willing to have your dermal piercing removed. This can be coordinated through your primary care physician office or a neurology office if so -Please follow-up with neurology upon discharge, please call Dr. Alford's office upon discharge to schedule an establish care appointment for your stroke symptoms ( [phone]) -Please call your primary care provider's office upon discharge to schedule a hospital follow up within 1 week. -For any concerning signs or symptoms please call 911 or proceed to the nearest emergency department Discharge Orders/Prescriptions Prescriptions: New aspirin 81 mg Tablet,Chewable 81 mg PO BREAKFAST 30 Days Qty: 30 0RF Continued atorvastatin 10 mg tablet 10 mg PO QHS levothyroxine 200 mcg tablet 200 mcg PO DAILY bupropion HCl 150 mg tablet extended release 24 hr 150 mg PO DAILY aripiprazole 2 mg tablet 2 mg PO QHS losartan 50 mg tablet 50 mg PO DAILY Referrals / Follow Up: Carlos Alford MD [Non-Staff -Ordering Privileges] - ( -Please follow-up with neurology upon discharge, please call Dr. Alford's office upon discharge to schedule an establish care appointment for your stroke symptoms (ph [phone])) Jese Allison MD [Med Staff - Active Staff] - (He would benefit from following with ophthalmology on discharge after your stroke symptoms) Care Physician,No Primary [Non-Staff] - Suze Nuñez, RESIDENT DIRECTOR-C [Primary Care Provider] - Within 1 Week Disposition Disposition (needs filled in before D/C Order can be placed): Home, Self Care
--- NOTE | 2023-09-25 13:35 | PCM.DC.SUM ---
Providers Date of Admission: 09/24/23 Date of Discharge: 09/25/23 Primary Care Physician: ISRAEL Roberts, [employer]OMOTIVE [employer]S PERSON-C Consultations 09/24/23 13:15 Consult: Tele-Neurology Routine Consulting Provider: [facility] Reason for Consult: Acute Ischemic Stroke/TIA concern EMERGENT Consult: No MD Notified: Yes Date Notified: 09/24/23 Time Notified: 12:38 Method of Notification: Answering Service Nursing Unit Staff Notify [facility] of Tele-Neurology Consult: Yes Reason For Visit: SUPERIOR HOMONYMOUS QUADRANTANOPSIA Diagnosis Discharge Diagnosis (1) Paresthesia of left upper and lower extremity: Status: Acute Code(s): R20.2 - Paresthesia of skin (2) Depression: Status: Chronic Code(s): F32.9 - Major depressive disorder, single episode, unspecified (3) Hypothyroidism: Status: Chronic Code(s): E03.9 - Hypothyroidism, unspecified Plan # Left-sided numbness and weakness with difficulty processing information- concern for CVA #Hypothyroidism # History of depression #Hypertension #Morbid obesity Medications at Discharge Home Medications aripiprazole 2 mg tablet 2 mg PO QHS 09/24/23 atorvastatin 10 mg tablet 10 mg PO QHS 09/24/23 bupropion HCl 150 mg 24 hr tablet, extended release 150 mg PO DAILY 09/24/23 levothyroxine 200 mcg tablet 200 mcg PO DAILY 09/24/23 losartan 50 mg tablet 50 mg PO DAILY 09/24/23 aspirin 81 mg chewable tablet 81 mg PO BREAKFAST 30 days #30 tabs 09/25/23 Hospital Course Procedures - (TTE) Summary of Care Provided Minutes Spent on Discharge: 25 Hospital Course: CORAL SÁNCHEZ, is a 42 F with history of hypothyroidism, former smoker, depression, hypertension, obesity who presented to [facility] ED 09/24/2023 for 2 days of left-sided numbness and weakness and difficulty processing information. In the ED CTA unrevealing, hospitalist contacted for stroke workup. 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 Evaluated by neurology who recommended continuing aspirin and following up with neurology on outpatient basis and removal of dermal piercing with MRI of possible as stroke cannot be ruled out. Patient feeling roughly the same on day of discharge, evaluated by OT who recommended outpatient OT and outpatient driving evaluation giving the weakness and some concerns with visual martinez, this information was discussed with social work and handout was provided for patient. No new or acute complaints on day of discharge. Discharge instructions as follows: -You will need to begin taking a baby aspirin, this can be obtained [id number] but will be sent into the pharmacy in the event that this is easier for you to obtain -[facility] driving evaluation prior to driving, handout provided prior to discharge his this will need to be coordinated through your primary care office -You will be given a referral for outpatient occupational therapy for your left arm weakness -It is also advised that you follow-up with ophthalmology -It is advised that you have outpatient MRI if you are able/willing to have your dermal piercing removed. This can be coordinated through your primary care physician office or a neurology office if so -Please follow-up with neurology upon discharge, please call Dr. Alford's office upon discharge to schedule an establish care appointment for your stroke symptoms ( [phone]) -Please call your primary care provider's office upon discharge to schedule a hospital follow up within 1 week. -For any concerning signs or symptoms please call 911 or proceed to the nearest emergency department Physical Exam Narrative General: Alert, oriented, no apparent distress HEENT: Atraumatic, normocephalic Eyes: Anicteric, normal conjunctiva, extraocular movements intact, pupils equal Neck: Supple Respiratory: Clear to auscultation bilaterally, normal respiratory effort Cardiovascular: Regular rate and rhythm GI: Soft, nontender, nondistended Extremities: No edema Musculoskeletal: Strength 5 out of 5 in right upper extremity, 4- out of 5 left upper extremity, 5 out of 5 right lower extremity, 4+ out of 5 left lower extremity Neuro: No overt focal neurological deficits, cranial nerves II through XII intact Skin: No rashes appreciated Psych: Cooperative Weight / BMI Weight Weight: 113.398 kg Body Mass Index (BMI) 40.3 ABG / Lab / Microbiology Data 09/25/23 05:15 09/25/23 05:15 Laboratory: Laboratory Results - last 24 hr 09/25/23 05:15: WBC 8.4, RBC 3.72 L, Hgb 11.6 L, Hct 35.4 L, MCV 95.2, MCH 31.2, MCHC 32.8, RDW Std Deviation 43.2, RDW Coeff of Brennan 12.4, Plt Count 297, MPV 11.2, Immature Gran % (Auto) 0.400, Neut % (Auto) 59.9, Lymph % (Auto) 31.8, Weakley % (Auto) 5.7, Eos % (Auto) 1.8, Baso % (Auto) 0.4, Absolute Neuts (auto) 5.0, Absolute Lymphs (auto) 2.67, Nucleated RBC % 0, Sodium 136, Potassium 3.6, Chloride 105, Carbon Dioxide 23.0, Anion Gap 8, BUN 12, Creatinine 0.90, Estim Creat Clear Calc 105.11, Est GFR (MDRD) Af Amer 88, Est GFR (MDRD) Non-Af 73, BUN/Creatinine Ratio 13.3, Glucose 121 H, Hemoglobin A1c 5.3, Calcium 8.5, Total Bilirubin 0.50, Direct Bilirubin 0.17, AST 40 H, ALT 31, Alkaline Phosphatase 74, Total Protein 6.9, Albumin 3.1 L, Globulin 3.8, Triglycerides 197, Cholesterol 125, LDL Cholesterol 54, VLDL Cholesterol 39, HDL Cholesterol 32 L, TSH 0.385 Radiography Diagnostic Testing: Radiology Impression Echocardiogram 09/24/23 12:40 Interpretation Summary The estimated ejection fraction is 60 %. No evidence for diastolic dysfunction. Trivial mitral valve insufficiency. Ordering Physician: Sherice Corrales Referring Physician: POLA NUÑEZ Performed By: Krystin Paniagua RCS D/C Instructions Discharge Diet: - (DASH diet) Meaningful Use Info Meaningful Use Meaningful Use Diagnoses (Choose all that apply): None applicable Ischemic Stroke Statin Dosing Therapy Reference: STATIN DOSE THERAPY REFERENCE: * Patients > 75 years receive moderate or high dose statin therapy. * Patients 75 years or YOUNGER should receive HIGH intensity statin dose unless contraindicated. You will be required to document reason for non-treatment if statin daily dose does not meet guidelines. HIGH DOSE STATIN THERAPY DAILY Atorvastatin > than or = to 40 mg Rosuvastatin > than or = to 20 mg Amlodipine + Atorvastatin > than or = to 2.5/40 mg Ezetimibe + Simvastatin 10/80 mg Simvastatin 80mg Discharge Plan Admission Admit Date/Time: 09/24/23 12:33 Primary Reason for Your Visit: Left sided weakness and numbness Attending Provider: Sherice Corrales Primary Care Provider: Pola Nuñez [facility] Consulting Providers: Tai Sim; Tala Sommer; hCanda Childs; Pam Marques; Aleisha Aguilar; Chavo Barakat; Marly Singh; Keshawn Bundy; Raffy Alves; Elvis Reza; Citlalli Nowak; Shade Ji; Jennifer Oglesby; Adrián Thompson; Devin Ramos; Mckay Pina; Krystle Castillo; Humble Doherty; Terra uDque; Bailey Jensen Instructions Patient Instructions: Stroke: Self-Care, Discharge Instructions for Stroke Additional Instructions / Restrictions: DISCHARGE INSTRUCTIONS PLEASE READ *Please take this with you to your next doctors appointment* -You will need to begin taking a baby aspirin, this can be obtained [id number] but will be sent into the pharmacy in the event that this is easier for you to obtain -[facility] driving evaluation prior to driving, handout provided prior to discharge his this will need to be coordinated through your primary care office -You will be given a referral for outpatient occupational therapy for your left arm weakness -It is also advised that you follow-up with ophthalmology -It is advised that you have outpatient MRI if you are able/willing to have your dermal piercing removed. This can be coordinated through your primary care physician office or a neurology office if so -Please follow-up with neurology upon discharge, please call Dr. Alford's office upon discharge to schedule an establish care appointment for your stroke symptoms ) -Please call your primary care provider's office upon discharge to schedule a hospital follow up within 1 week. -For any concerning signs or symptoms please call 911 or proceed to the nearest emergency department Discharge Orders/Prescriptions Prescriptions: New aspirin 81 mg Tablet,Chewable 81 mg PO BREAKFAST 30 Days Qty: 30 0RF Continued atorvastatin 10 mg tablet 10 mg PO QHS levothyroxine 200 mcg tablet 200 mcg PO DAILY bupropion HCl 150 mg tablet extended release 24 hr 150 mg PO DAILY aripiprazole 2 mg tablet 2 mg PO QHS losartan 50 mg tablet 50 mg PO DAILY Referrals / Follow Up: Carlos Alford MD [Non-Staff -Ordering Privileges] - ( -Please follow-up with neurology upon discharge, please call Dr. Alford's office upon discharge to schedule an establish care appointment for your stroke symptoms (ph [phone])) Jese Allison MD [Med Staff - Active Staff] - (He would benefit from following with ophthalmology on discharge after your stroke symptoms) Care Physician,No Primary [Non-Staff] - Pola Nuñez, [employer] PERSON-C [Primary Care Provider] - Within 1 Week Disposition Disposition (needs filled in before D/C Order can be placed): Home, Self Care Charges/Coding Visit Charges Inpatient E&M: 19342 Disch Hosp
[2023-09-25 14:16] VITALS: BP 137/93; PULSE 82; RESP 16; TEMP 36.1; O2SAT 99
--- NOTE | 2023-09-25 15:01 | NURSING ---
Reviewed charting with Scooter Chaparro RN
== END 2023-09-25 13:34 | disposition home or self-care (01) ==
LOC: ED 11:41 → PCU 12:24
PROVIDERS: Admitting Provider Internal Medicine; Emergency Provider Emergency Medicine; PCP Nurse Practitioner Family; Visit Provider Internal Medicine
DX: R20.2 Paresthesia of skin (principal); E66.01 Morbid (severe) obesity due to excess calories; Z68.41 Body mass index [BMI] 40.0-44.9, adult; R20.0 Anesthesia of skin; Z87.891 Personal history of nicotine dependence; F32.A Depression, unspecified; M79.602 Pain in left arm; R41.0 Disorientation, unspecified; E89.0 Postprocedural hypothyroidism; R29.898 Other symptoms and signs involving the musculoskeletal system; R53.1 Weakness; I10 Essential (primary) hypertension; Z79.899 Other long term (current) drug therapy; Z79.890 Hormone replacement therapy; H53.469 Homonymous bilateral field defects, unspecified side
CPT/HCPCS: 36415; 70496; 70498; 71045; 80048; 80061; 80076; 83036; 84443; 84484; 85025; 85610; 85730; 93005; 93306; 94762; 96372; 97161; 97166; 99221; 99285; Q9957; Q9967; A4216; C8929; G0378

== ENCOUNTER 2024-05-29 10:58 | Emergency (ER) | payer SELFPAY ==
[2024-05-29 10:59] VITALS: BP 180/112; PULSE 98; RESP 18; TEMP 36.6; O2SAT 97; BMI 44.4
--- NOTE | 2024-05-29 11:47 | EX.ED.VIS.EY ---
HPI History of Present Illness Chief Complaint: Eye Problem Informant: patient Narrative Narrative: 43-year-old female presenting to the emergency room with left eye redness and swelling. Patient states that yesterday morning she woke up with her eye feeling itchy like maybe there is an eyelash in it. She did not see anything by the evening she had developed redness of the whites of her eye as well as periorbital swelling and tenderness. She went to urgent care today where she states that they did not see a corneal abrasion. She wears glasses. She states she has an appointment with her eye doctor on the . She states that they were unable to see her today so they sent her to emergency. She denies any fevers. She states that she is a prediabetic. She notes blurry vision in the left eye. She denies any trauma to the eye. She denies any sinus issues. [facility] Medical History Hemorrhoids Acid reflux Diarrhea Vomiting Nausea RUQ abdominal pain Epigastric pain Asthma Thyroid disease Fatigue Migraine Tobacco dependence syndrome Hypothyroidism Depression Constipation Home Medications ?Medication ?Instructions ?Recorded ?Last Taken ?Type aripiprazole 2 mg tablet 2 mg PO QHS 09/24/23 09/23/23 History atorvastatin 10 mg tablet 10 mg PO QHS 09/24/23 09/23/23 History bupropion HCl 150 mg 24 hr tablet, 150 mg PO DAILY 09/24/23 09/24/23 History extended release levothyroxine 200 mcg tablet 200 mcg PO DAILY 09/24/23 09/24/23 History losartan 50 mg tablet 50 mg PO DAILY 09/24/23 09/24/23 History aspirin 81 mg chewable tablet 81 mg PO BREAKFAST 30 days #30 tabs 09/25/23 Unknown Rx amoxicillin 875 mg-potassium 875 mg PO Q12H #14 TABLETS 05/29/24 Unknown Rx clavulanate 125 mg tablet oxycodone-acetaminophen 5 mg-325 1 tab PO Q8H PRN pain 3 days #9 05/29/24 Unknown Rx mg tablet (Percocet) tabs sulfamethoxazole 800 1 tab PO BID #14 TABLETS 05/29/24 Unknown Rx mg-trimethoprim 160 mg tablet Allergy/AdvReac Type Severity Reaction Status Date / Time diclofenac sodium (From Allergy Unknown Verified 05/29/24 10:59 Voltaren) hydrocodone bitartrate (From AdvReac Vomiting Verified 05/29/24 10:59 Vicodin) Family History Mother Asthma Arthritis Heart disease Hypertension Father No known health problems Surgical History Hx of cholecystectomy Hx of tubal ligation Hx of partial thyroidectomy Social History Smoking Status: Current some day smoker tobacco type: cigarettes alcohol intake: current alcohol intake frequency: a few times a month substance use type: does not use caffeine: No what type of physical activity do you participate in: none ROS ROS ED Constitutional Constitutional ED: Denies chills or weight loss Eyes Eyes: Reports blurry vision and other Details: Left eye redness periorbital swelling and redness ; Denies change in vision or diplopia ENT ENT ED: Denies ear pain, rhinorrhea or sore throat Cardiovascular Cardiovascular: Denies chest pain, orthopnea, palpitations or racing heartbeat Respiratory/Chest Respiratory/Chest: Denies cough, dyspnea or orthopnea Gastrointestinal Gastrointestinal: Denies abdominal pain, diarrhea, nausea or vomiting Genitourinary Genitourinary ED: Denies dysuria, hematuria or urinary frequency Musculoskeletal Musculoskeletal: Denies arthralgias or myalgias Integumentary Denies abscess or rash Neurologic Neurologic: Denies headache(s) or weakness Psychiatric Psychiatric: Denies anxiety, depression, suicidal ideation or suicidal thoughts Endocrine Endocrinology: Denies polydipsia, polyphagia or polyuria Allergic/Immunologic Allergic/Immunologic ED: Denies mouth swelling, tongue swelling or urticaria EXAM Physical Exam Const Vital Signs: 05/29/24 10:59 Temperature 97.8 F Temperature Source Temporal Pulse Rate 98 Respiratory Rate 18 Blood Pressure 180/112 H Blood Pressure Mean 134 Pulse Ox 97 Oxygen Delivery Method Room Air Positive well nourished, well developed and obese General Appearance ED: well developed and NAD Nutritional Appearance: obese HEENT Reports normocephalic, head/scalp atraumatic and moist mucous membranes Eyes PERRL and EOMs intact bilaterally Eyes Narrative: Bilateral consensual reflex. The left eye conjunctiva appears injected in the lower half of the eye. I do not see obvious foreign body. I do not see evidence of stye. I do not see corneal abrasion. Extraocular motions are intact. There is no proptosis. No vesicular lesions are noted. IOP (L) (R) Neck no lymphadenopathy, supple and no JVD Resp normal respiratory effort and clear to auscultation bilaterally Cardio regular rate, regular rhythm and no murmurs GI normal to inspection, nondistended, normoactive bowel sounds and non-tender Palpation: soft Back/Spine no CVA tenderness and normal ROM Extremity normal to inspection General Extremety ED: Negative for edema General Extremity: Negative for edema Neuro oriented x3 and CN's II-XII intact bilaterally Sensorium / Orientation: alert Motor Exam: strength 5/5 throughout Psych mental status grossly normal Mood & Affect: Negative for depressed or tearful Skin no rashes or lesions noted and no wounds MDM MDM MDM Narrative Medical decision making narrative: Differential diagnosis includes but not limited to periorbital cellulitis orbital cellulitis conjunctivitis stye/hordeolum foreign body corneal abrasion increased IOP CT of the orbits with IV contrast obtained. No evidence of orbital cellulitis. Pressures are equal bilaterally not significantly elevated. I do not see evidence of foreign body or corneal abrasion. I will be placing her on Bactrim and Augmentin as she is not having any sinus issues currently. If she is not improving in 48 hours would have to follow-up allergy other think she is reasonable that she wait till she follows up with her lawyer criminal she states on the . She has eyedrops in the form of polymyxin which I would recommend her continue to use. History & Record Review Discussion w/independent historian: Patient Additional record(s) reviewed:: Prior outpatient record and Prior ED visit Lab Data Attestation: I reviewed the patient's lab results. Discharge Plan Triage Chief Complaint: Eye Problem ED Provider: Farhan Johnson Dx/Rx/DC Orders Clinical Impression: Periorbital cellulitis of left eye Instructions: ED Periorbital Cellulitis Prescriptions: New sulfamethoxazole-trimethoprim 800-160 mg tablet 1 tab PO BID Qty: 14 0RF amoxicillin-pot clavulanate 875-125 mg tablet 875 mg PO Q12H Qty: 14 0RF oxycodone-acetaminophen [Percocet] 5-325 mg tablet 1 tab PO Q8H PRN (Reason: pain) 3 Days Qty: 9 0RF No Action atorvastatin 10 mg tablet 10 mg PO QHS levothyroxine 200 mcg tablet 200 mcg PO DAILY bupropion HCl 150 mg tablet extended release 24 hr 150 mg PO DAILY aripiprazole 2 mg tablet 2 mg PO QHS losartan 50 mg tablet 50 mg PO DAILY aspirin 81 mg Tablet,Chewable 81 mg PO BREAKFAST 30 Days Qty: 30 0RF Primary Care Provider: Suze Nuñez Referrals: Rajiv Alan MD [Med Staff - Active Staff] - (for ophthalmology if you are not improving.) Suze Nuñez, STRATEGIC DEBRIEFING OFFICER-C [Primary Care Provider] - Activity Restrictions/Additional Instructions: If you are not improving I would recommend following up with ophthalmology (Dr. Alan). If you are improving I think it is reasonable to wait and follow-up with your lawyer criminal on the as scheduled. Continue to use your eyedrops as directed. Print Language: Mohawk Disposition Disposition: Home, Self Care Discharge Date/Time: 05/29/24 13:10
--- NOTE | 2024-05-29 12:08 | CT_ITS ---
PROCEDURE: ORB SELLA POST FOSSA EAR W/CON 05/29/2024 REASON FOR EXAM: ORBITAL CELLULITIS TECHNIQUE: CT of the orbits with contrast. CONTRAST: Isovue-300 VOLUME: 100 mL One or more dose reduction techniques were used (e.g., Automated exposure control, adjustment of the mA and/or kV according to patient size, use of iterative reconstruction technique). RADIATION DOSE SUMMARY: CTDlvol: 29.38 mGy DLP: 349.11 mGycm COMPARISON: None FINDINGS: Globes: Unremarkable Extraocular Muscles: Unremarkable Orbits: Unremarkable Lacrimal Glands: Unremarkable Bones: Unremarkable Other: Visualized paranasal sinuses and intracranial structures: Unremarkable incidental note is made of a piercing in the lateral aspect of the right preorbital soft tissue. CT/Orb Sella Post Fossa Ear W/CON IMPRESSION: NEGATIVE CT OF THE ORBITS. Reading Location: [place] [id number]
== END 2024-05-29 13:10 | disposition home or self-care (01) ==
PROVIDERS: Emergency Provider Emergency Medicine; PCP Nurse Practitioner Family; Referring Provider Emergency Medicine; Visit Provider Emergency Medicine
DX: L03.213 Periorbital cellulitis (principal); H53.8 Other visual disturbances; Z97.3 Presence of spectacles and contact lenses; E66.9 Obesity, unspecified; F17.210 Nicotine dependence, cigarettes, uncomplicated; Z90.49 Acquired absence of other specified parts of digestive tract; Z98.51 Tubal ligation status; E03.9 Hypothyroidism, unspecified
CPT/HCPCS: 70481; 99284; Q9967; A4216